=== PATIENT | female | born 1955 | race Caucasian/White ===

== ENCOUNTER 2024-02-02 13:30 | Emergency (ER) | payer OTHER ==
[~2024-02-02] VITALS: Ht 172.7 cm; Wt 136.1 kg
[~2024-02-02 13:30] MED LIST: ACET-2079 PO; CYCL5TAB PO
[2024-02-02 18:04] VITALS: BP 131/66; PULSE 77; RESP 14; O2SAT 96
== END 2024-02-02 18:04 | disposition home or self-care (01) ==
LOC: EDH 13:30
DX: S42.292A Other displaced fracture of upper end of left humerus, initial encounter for closed fracture (principal); M25.562 Pain in left knee; M25.552 Pain in left hip; I10 Essential (primary) hypertension; M19.90 Unspecified osteoarthritis, unspecified site; Z79.899 Other long term (current) drug therapy; Z98.890 Other specified postprocedural states; W18.39XA Other fall on same level, initial encounter; Y93.89 Activity, other specified; Y92.89 Other specified places as the place of occurrence of the external cause; Y99.8 Other external cause status
CPT/HCPCS: 73030; 73502; 73562

== ENCOUNTER 2024-06-29 19:28 | Inpatient (IN) | payer OTHER ==
[~2024-06-29] VITALS: Ht 172.7 cm; Wt 133.8 kg
[2024-06-29 19:51] LABS: BASOPHILS # (AUTO) 0.03 K/uL (0.00-0.20); BASOPHILS % (AUTO) 0.1 % (0.0-5.0); EOSINOPHILS # (AUTO) 0.05 K/uL (0.00-0.70); EOSINOPHILS % (AUTO) 0.2 % (0.0-8.0); HEMATOCRIT 40.1 % (36-48); IMMATURE GRANULOCYTE ABSOLUTE 0.16 K/uL (0-1); LYMPHOCYTES # (AUTO) 1.2 K/uL (1.0-4.8); LYMPHOCYTES % (AUTO) 4.2 % (21.0-51.0); MEAN CORPUSCULAR HEMOGLOBIN 30.6 pg (27.0-33.0); MEAN CORPUSCULAR HGB CONC 32.2 g/dL (32.0-36.0); MONOCYTES # (AUTO) 2.1 K/uL (0.1-1.0); MONOCYTES % (AUTO) 7.5 % (3.0-13.0); NEUTROPHILS # (AUTO) 24.6 K/uL (1.8-7.7); NEUTROPHILS % (AUTO) 87.4 % (40.0-77.0); PLATELET COUNT (AUTO) 274 K/uL (130-400); RED BLOOD CELL COUNT(AUTO) 4.22 MIL/uL (4.00-5.50); RED CELL DISTRIBUTION WIDTH 12.5 % (11.0-15.5); WHITE BLOOD COUNT (AUTO) 28.1 K/uL (4.8-10.8)
[2024-06-29 20:03] LABS: CREATININE 0.9 mg/dL (0.5-1.0); POTASSIUM 3.2 mmol/L (3.5-5.1)
[2024-06-29] MEDS: 0.9%NACL 1000ML 1,000 ML IV ONE (20:03)
[2024-06-29] MEDS: [UNRECOGNIZED DRUG - OTHER] IV ONE (20:03)
[2024-06-29] MEDS: ZOSYN 3.375GM +NS 50ML IVPB SCH (20:07)
[2024-06-29] MEDS: ONDANSETRON 4MG INJ IVP ONE (20:07)
[2024-06-29] MEDS: morPHINE 4 MG SYG IVP ONE (20:08)
[2024-06-29 20:15] LABS: B-TYPE NATRIURETIC PEPTIDE 504 pg/mL (0-100); BILIRUBIN,DIRECT 0.3 mg/dL (0.0-0.3); BILIRUBIN,TOTAL 0.9 mg/dL (0.2-1.0); TOTAL PROTEIN, SERUM 6.6 g/dL (6.0-8.3)
[2024-06-29] MEDS ORDERED: IOHEXOL-350 75 ML VIAL IV ONE (20:33)
[2024-06-29 20:48] LABS: SARS-CoV-2, RNA, NAAT NEGATIVE SARS CoV-2 (NEGATIVE)
[2024-06-29 20:54] LABS: INFLUENZA TYPE A Negative For Type A (NEGATIVE); INFLUENZA TYPE B Negative For Type B (NEGATIVE)
[2024-06-29] MEDS: POTASSIUM CHLORIDE 10MEQ/100ML 100 ML IV ONE (22:03)
[2024-06-29 22:24] VITALS: BP 145/69; PULSE 86; RESP 18; TEMP 98; O2SAT 98
[2024-06-29] MEDS: morPHINE 4 MG SYG IV PRN (22:45)
[2024-06-29] MEDS: POTASSIUM CHLORIDE 20MEQ/100ML 100 ML IV PRN (23:37)
[2024-06-30] VITALS (7 sets, daily range): BP systolic 107–114; BP diastolic 47–73; PULSE 70–100; RESP 17–28; TEMP 98.2–98.6; O2SAT 90–96
[2024-06-30] MEDS: metoPROLOL tartRATE 1 MG/ML 5ML VIAL IV ONE ×4 (00:11→09:40)
[2024-06-30] MEDS: 0.9%NACL 1000ML 1,000 ML IV SCH (00:11)
[2024-06-30 03:24] LABS: BASOPHILS # (AUTO) 0.05 K/uL (0.00-0.20); BASOPHILS % (AUTO) 0.2 % (0.0-5.0); EOSINOPHILS # (AUTO) 0.08 K/uL (0.00-0.70); EOSINOPHILS % (AUTO) 0.3 % (0.0-8.0); HEMATOCRIT 37.1 % (36-48); IMMATURE GRANULOCYTE ABSOLUTE 0.36 K/uL (0-1); LYMPHOCYTES % (AUTO) 3.6 % (21.0-51.0); MEAN CORPUSCULAR HGB CONC 32.3 g/dL (32.0-36.0); MEAN CORPUSCULAR VOLUME 95.9 fL (79-99); MONOCYTES # (AUTO) 2.2 K/uL (0.1-1.0); MONOCYTES % (AUTO) 7.7 % (3.0-13.0); NEUTROPHILS # (AUTO) 24.5 K/uL (1.8-7.7); NEUTROPHILS % (AUTO) 86.9 % (40.0-77.0); PLATELET COUNT (AUTO) 234 K/uL (130-400); RED BLOOD CELL COUNT(AUTO) 3.87 MIL/uL (4.00-5.50); RED CELL DISTRIBUTION WIDTH 12.6 % (11.0-15.5); WHITE BLOOD COUNT (AUTO) 28.1 K/uL (4.8-10.8)
[2024-06-30 03:53] LABS: ALBUMIN 2.5 g/dL (3.5-5.0); CREATININE 0.9 mg/dL (0.5-1.0); MAGNESIUM 1.6 mg/dL (1.80-2.40); POTASSIUM 3.5 mmol/L (3.5-5.1); THYROID STIMULATING HORMONE 0.29 uIU/mL (0.36-3.74); TOTAL PROTEIN, SERUM 5.8 g/dL (6.0-8.3)
[2024-06-30] MEDS: MAGNESIUM 2GM PREMIX 50ML 50 ML IV PRN (04:10)
[2024-06-30] MEDS: ZOSYN 3.375GM+NS 50ML 50 ML IV SCH (05:10)
[2024-06-30 06:53] LABS: APPEARANCE,URINE CLEAR (CLEAR); BILIRUBIN,URINE NEGATIVE (NEGATIVE); COLOR,URINE YELLOW (YELLOW); GLUCOSE, URINE (UA) NEGATIVE (NEGATIVE); KETONES,URINE 5 mg/dL (NEGATIVE); LEUKOCYTE ESTERASE ,URINE NEGATIVE Leu/uL (NEGATIVE); NITRATE,URINE NEGATIVE (NEGATIVE); OCCULT BLOOD,URINE SMALL (NEGATIVE); PROTEIN,URINE 70 mg/dL (NEGATIVE); UROBILINOGEN,URINE 0.2 mg/dL (0.2-1.0)
[2024-06-30 06:55] LABS: ADD UA MICROSCOPIC YES
[2024-06-30 07:00] LABS: BACTERIA,URINE RARE /HPF (None Seen); MUCUS,URINE RARE LPF (None Seen); SQUAMOUS EPITHELIAL CELL,UR MOD /HPF (0-2); WBC,URINE 0-1 /HPF (0-1)
[2024-06-30] MEDS ORDERED: GABA-529 PO (07:06)
[2024-06-30] MEDS ORDERED: METH100054 PO (07:06)
[2024-06-30] MEDS ORDERED: LATA2.5D14 OP (07:06)
[2024-06-30] MEDS ORDERED: MELO10CA3 PO (07:06)
[2024-06-30] MEDS ORDERED: LISI1TAB49 PO (07:06)
[2024-06-30] MEDS ORDERED: TRAM50TA4 PO (07:06)
[2024-06-30] MEDS ORDERED: POTA10CA95 PO (07:06)
[2024-06-30] MEDS: FAMOTIDINE 20MG VIAL IV SCH (08:40)
[2024-06-30] MEDS ORDERED: ENOXAPARIN SODIUM 40 MG/0.4 ML SYRINGE SQ SCH (11:00)
[2024-06-30] MEDS: ENOXAPARIN SODIUM 100 MG/1 ML SQ SCH (12:21)
[2024-06-30] MEDS: ENOXAPARIN SODIUM 30 MG/0.3 ML SQ SCH (12:22)
[2024-06-30] MEDS: metoPROLOL tartRATE 1 MG/ML 5ML VIAL IV SCH (12:45)
[2024-06-30] MEDS: METHOCARBAMOL 500 MG PO SCH (14:39)
[2024-06-30] MEDS: GABApentin 100 MG CAPSULE PO SCH (14:40)
[2024-06-30] MEDS: ONDANSETRON 4MG INJ IV PRN (19:59)
[2024-06-30] MEDS: LISINOPRIL 10 MG TABLET PO SCH (21:00)
[2024-06-30] MEDS: hydroCHLOROthiazide 25 MG TABLET PO SCH (21:00)
[2024-06-30] MEDS: ketOROlac 15MG/ML VIAL (15MG/ML) IV ONE (23:05)
[2024-07-01] VITALS (9 sets, daily range): BP systolic 110–194; BP diastolic 48–74; PULSE 70–98; RESP 18–24; TEMP 98–98.9; O2SAT 90–95
[2024-07-01] MEDS: MELOXICAM SUBMICRONIZED PO SCH (09:00)
[2024-07-01] MEDS: ENOXAPARIN SODIUM 40 MG/0.4 ML SYRINGE SQ SCH (09:38)
[2024-07-01] MEDS: morPHINE 2 MG SYG IV PRN (10:15)
[2024-07-01] MEDS: LACTULOSE 20 GM/30 ML UDCUP PO PRN (10:34)
[2024-07-01 10:41] LABS: BASOPHILS # (AUTO) 0.04 K/uL (0.00-0.20); BASOPHILS % (AUTO) 0.2 % (0.0-5.0); EOSINOPHILS # (AUTO) 0.07 K/uL (0.00-0.70); EOSINOPHILS % (AUTO) 0.3 % (0.0-8.0); HEMATOCRIT 35.4 % (36-48); IMMATURE GRANULOCYTE ABSOLUTE 0.14 K/uL (0-1); LYMPHOCYTES % (AUTO) 4.3 % (21.0-51.0); MEAN CORPUSCULAR HEMOGLOBIN 30.7 pg (27.0-33.0); MEAN CORPUSCULAR HGB CONC 31.4 g/dL (32.0-36.0); MEAN CORPUSCULAR VOLUME 97.8 fL (79-99); MONOCYTES # (AUTO) 1.4 K/uL (0.1-1.0); MONOCYTES % (AUTO) 6.3 % (3.0-13.0); NEUTROPHILS # (AUTO) 19.6 K/uL (1.8-7.7); NEUTROPHILS % (AUTO) 88.3 % (40.0-77.0); PLATELET COUNT (AUTO) 191 K/uL (130-400); RED BLOOD CELL COUNT(AUTO) 3.62 MIL/uL (4.00-5.50); RED CELL DISTRIBUTION WIDTH 12.7 % (11.0-15.5); WHITE BLOOD COUNT (AUTO) 22.2 K/uL (4.8-10.8)
[2024-07-01 10:48] LABS: MAGNESIUM 2.2 mg/dL (1.80-2.40)
[2024-07-01] MEDS: acetaMINOPHEN WITH coDEINE 1 TAB TAB PO PRN (12:25)
[2024-07-01] MEDS: metoPROLOL tartRATE 25 MG TAB PO ONE (15:04)
[2024-07-01] MEDS ORDERED: VANCOMYCIN PROTOCOL PER PHARMACY IV SCH (16:00)
[2024-07-01] MEDS: VANCOMYCIN 2GM/500 ML BAG 500 ML IV SCH (17:28)
[2024-07-01] MEDS: LACTULOSE 20 GM/30 ML UDCUP PO SCH (17:28)
[2024-07-01] MEDS: metoPROLOL tartRATE 25 MG TAB PO SCH (20:48)
[2024-07-02] VITALS (11 sets, daily range): BP systolic 100–136; BP diastolic 49–72; PULSE 80–91; RESP 17–20; TEMP 97.2–99.1; O2SAT 96–99
[2024-07-02] MEDS: VANCOMYCIN 1.25 GM/250 ML BAG 250 ML IV SCH (04:56)
[2024-07-02] MEDS: dilTIAZem 180MG SR CAP PO SCH (08:16)
[2024-07-02] MEDS: furoSEMIDE 20MG VIAL IV ONE (08:26)
[2024-07-02 09:15] LABS: BASOPHILS # (AUTO) 0.05 K/uL (0.00-0.20); BASOPHILS % (AUTO) 0.2 % (0.0-5.0); EOSINOPHILS # (AUTO) 0.18 K/uL (0.00-0.70); EOSINOPHILS % (AUTO) 0.8 % (0.0-8.0); IMMATURE GRANULOCYTE ABSOLUTE 0.17 K/uL (0-1); LYMPHOCYTES # (AUTO) 1.1 K/uL (1.0-4.8); LYMPHOCYTES % (AUTO) 4.9 % (21.0-51.0); MEAN CORPUSCULAR HEMOGLOBIN 30.3 pg (27.0-33.0); MEAN CORPUSCULAR HGB CONC 30.8 g/dL (32.0-36.0); MEAN CORPUSCULAR VOLUME 98.4 fL (79-99); MONOCYTES # (AUTO) 1.9 K/uL (0.1-1.0); MONOCYTES % (AUTO) 8.4 % (3.0-13.0); NEUTROPHILS # (AUTO) 18.7 K/uL (1.8-7.7); NEUTROPHILS % (AUTO) 84.9 % (40.0-77.0); PLATELET COUNT (AUTO) 244 K/uL (130-400); RED BLOOD CELL COUNT(AUTO) 3.76 MIL/uL (4.00-5.50); RED CELL DISTRIBUTION WIDTH 12.5 % (11.0-15.5)
[2024-07-02 09:32] LABS: ALBUMIN 2.2 g/dL (3.5-5.0); BILIRUBIN,TOTAL 0.8 mg/dL (0.2-1.0); CREATININE 0.8 mg/dL (0.5-1.0); MAGNESIUM 2.1 mg/dL (1.80-2.40); TOTAL PROTEIN, SERUM 6.3 g/dL (6.0-8.3)
[2024-07-02 09:34] LABS: POTASSIUM 2.6 mmol/L (3.5-5.1)
[2024-07-02] MEDS: POTASSIUM CHLORIDE 10% ELIXIR 20 MEQ/15 ML UDCUP PO PRN (10:19)
[2024-07-02] MEDS: IpraTROPium/alBUTERol SULFATE 3 ML SOLUTION IH ONE (10:43)
[2024-07-02] MEDS: KCL 20 MEQ ERTAB PO PRN (17:33)
[2024-07-02] MEDS ORDERED: LORATAdine/pseudophEPHEDrine 5/120 MG 1 EACH TAB.SR.12H PO SCH (21:00)
[2024-07-03] VITALS (13 sets, daily range): BP systolic 92–124; BP diastolic 52–58; PULSE 61–98; RESP 18–24; TEMP 98.2–99.5; O2SAT 95–98
[2024-07-03] MEDS: dilTIAZem 120MG SR CAP PO SCH (09:00)
[2024-07-03] MEDS ORDERED: morPHINE 2 MG SYG IV PRN ×2 (11:48→14:00)
[2024-07-03 11:59] LABS: ABG OXYGEN SATURATION 91.8 % (94.0-98.0); ABG PCO2 46 mmHg (32-45); ABG PH 7.437 (7.350-7.450); DEVICE COMMENT LR LIZ; PO2, ARTERIAL BG 60.5 mmHg (83.0-108.0); VENT MODE, BG RA (ROOM AIR)
[2024-07-03 12:04] LABS: BASOPHILS # (AUTO) 0.06 K/uL (0.00-0.20); BASOPHILS % (AUTO) 0.3 % (0.0-5.0); EOSINOPHILS # (AUTO) 0.26 K/uL (0.00-0.70); EOSINOPHILS % (AUTO) 1.2 % (0.0-8.0); HEMATOCRIT 34.5 % (36-48); LYMPHOCYTES # (AUTO) 1.2 K/uL (1.0-4.8); LYMPHOCYTES % (AUTO) 5.6 % (21.0-51.0); MEAN CORPUSCULAR HEMOGLOBIN 30.7 pg (27.0-33.0); MEAN CORPUSCULAR HGB CONC 32.2 g/dL (32.0-36.0); MEAN CORPUSCULAR VOLUME 95.6 fL (79-99); MONOCYTES # (AUTO) 2.3 K/uL (0.1-1.0); MONOCYTES % (AUTO) 10.8 % (3.0-13.0); NEUTROPHILS # (AUTO) 17.3 K/uL (1.8-7.7); NEUTROPHILS % (AUTO) 80.7 % (40.0-77.0); PLATELET COUNT (AUTO) 259 K/uL (130-400); RED BLOOD CELL COUNT(AUTO) 3.61 MIL/uL (4.00-5.50); RED CELL DISTRIBUTION WIDTH 12.6 % (11.0-15.5); WHITE BLOOD COUNT (AUTO) 21.5 K/uL (4.8-10.8)
[2024-07-03] MEDS: ketOROlac 15MG/ML VIAL (15MG/ML) IV PRN (12:11)
[2024-07-03 12:18] LABS: ALBUMIN 1.8 g/dL (3.5-5.0); BILIRUBIN,TOTAL 0.8 mg/dL (0.2-1.0); CREATININE 0.6 mg/dL (0.5-1.0); MAGNESIUM 1.6 mg/dL (1.80-2.40); TOTAL PROTEIN, SERUM 5.7 g/dL (6.0-8.3)
[2024-07-03 12:34] LABS: POTASSIUM 2.7 mmol/L (3.5-5.1)
[2024-07-03] MEDS ORDERED: POTASSIUM CHLORIDE 20MEQ/100ML 100 ML IV PRN (13:00)
[2024-07-03] MEDS ORDERED: MAGNESIUM 2GM PREMIX 50ML 50 ML IV PRN (13:00)
[2024-07-03] MEDS ORDERED: MAGNESIUM 2GM PREMIX 50ML 50 ML IV SCH (13:00)
[2024-07-03] MEDS ORDERED: COMPOUND IV MISC 1 EACH IVSOLN MISC PRN (14:00)
[2024-07-03] MEDS ORDERED: LACTATED RINGERS 1000ML 1,000 ML IV SCH (14:00)
[2024-07-03 14:03] LABS: AMYLASE 21 U/L (25-115); LACTATE DEHYDROGENASE 216 U/L (81-234)
[2024-07-03] MEDS: POTASSIUM CHLORIDE 20MEQ/100ML 100 ML IV ONE (14:16)
[2024-07-03] MEDS: IpraTROPium/alBUTERol SULFATE 3 ML SOLUTION IH PRN (14:20)
[2024-07-03 14:53] LABS: INR 1.05 (0.85-1.15); PROTHROMBIN TIME 11.3 SEC (9.6-11.6)
[2024-07-03] MEDS: MEROPENEM 1 GM in 0.9%NACL 100ML 100 ML IVPB SCH (15:18)
[2024-07-03] MEDS: LIDOCAINE HCL-MPF 1% 2ML VIAL IV SCH (15:28)
[2024-07-03] MEDS: furoSEMIDE 20MG VIAL IV SCH (16:53)
[2024-07-03] MEDS: IpraTROPium 0.5 MG/2.5 ML INH IH SCH (18:47)
[2024-07-03 18:53] LABS: POTASSIUM 3.1 mmol/L (3.5-5.1)
[2024-07-03] MEDS: SIMETHICONE 80 MG TAB.CHEW PO SCH (21:18)
[2024-07-03] MEDS: 0.9%NACL 10ML VIAL IV SCH (21:18)
[2024-07-03] MEDS: traMADol HCL 50 MG TABLET PO ONE (22:52)
[2024-07-04] VITALS (15 sets, daily range): BP systolic 109–132; BP diastolic 51–83; PULSE 72–91; RESP 16–21; TEMP 97.8–98.7; O2SAT 94–97
[2024-07-04 05:15] LABS: HEMATOCRIT 32.7 % (36-48); MEAN CORPUSCULAR HEMOGLOBIN 29.8 pg (27.0-33.0); MEAN CORPUSCULAR HGB CONC 31.8 g/dL (32.0-36.0); MEAN CORPUSCULAR VOLUME 93.7 fL (79-99); RED BLOOD CELL COUNT(AUTO) 3.49 MIL/uL (4.00-5.50); RED CELL DISTRIBUTION WIDTH 12.8 % (11.0-15.5); WHITE BLOOD COUNT (AUTO) 17.1 K/uL (4.8-10.8)
[2024-07-04 05:29] LABS: CREATININE 0.6 mg/dL (0.5-1.0); MAGNESIUM 1.8 mg/dL (1.80-2.40); POTASSIUM 3.1 mmol/L (3.5-5.1)
[2024-07-04] MEDS: ENOXAPARIN SODIUM 40 MG/0.4 ML SYRINGE SQ SCH (08:34)
[2024-07-04] MEDS ORDERED: APIXaban 5 MG TABLET PO SCH (09:00)
[2024-07-04] MEDS: LACTULOSE 20 GM/30 ML UDCUP PO ONE (14:55)
[2024-07-04] MEDS: KCL 20 MEQ ERTAB PO ONE (14:55)
[2024-07-04] MEDS: POTASSIUM CHLORIDE 20MEQ/100ML 100 ML IV ONE (14:59)
[2024-07-04] MEDS: PREDNISONE 20 MG TABLET PO SCH (15:04)
[2024-07-05] VITALS (14 sets, daily range): BP systolic 109–128; BP diastolic 57–79; PULSE 78–89; RESP 18–24; TEMP 97.7–98.8; O2SAT 95–98
[2024-07-05 06:15] LABS: HEMATOCRIT 32.5 % (36-48); MEAN CORPUSCULAR HEMOGLOBIN 30.1 pg (27.0-33.0); MEAN CORPUSCULAR HGB CONC 32.6 g/dL (32.0-36.0); MEAN CORPUSCULAR VOLUME 92.3 fL (79-99); RED BLOOD CELL COUNT(AUTO) 3.52 MIL/uL (4.00-5.50); RED CELL DISTRIBUTION WIDTH 12.7 % (11.0-15.5); WHITE BLOOD COUNT (AUTO) 15.6 K/uL (4.8-10.8)
[2024-07-05 06:30] LABS: ALBUMIN 1.7 g/dL (3.5-5.0); BILIRUBIN,TOTAL 0.4 mg/dL (0.2-1.0); CREATININE 0.6 mg/dL (0.5-1.0); MAGNESIUM 1.9 mg/dL (1.80-2.40); TOTAL PROTEIN, SERUM 5.4 g/dL (6.0-8.3)
[2024-07-05 06:36] LABS: POTASSIUM 2.8 mmol/L (3.5-5.1)
[2024-07-05] MEDS ORDERED: MAG/ALUM/SIMETH 30 ML UDCUP PO PRN (08:00)
[2024-07-05] MEDS: SUCRALFATE 1 GM TABLET ONE (08:47)
[2024-07-05] MEDS: PANTOPRAZOLE 40 MG/VIAL IVP SCH (08:47)
[2024-07-05] MEDS: PREDNISONE 20 MG TABLET PO SCH (08:50)
[2024-07-05] MEDS: monteLUKAST sodIUM 10 MG TAB PO SCH (08:51)
[2024-07-05] MEDS: KCL 20 MEQ ERTAB PO ONE (08:51)
[2024-07-05] MEDS: furoSEMIDE 20 MG TABLET PO SCH (08:51)
[2024-07-05] MEDS: BUDESONIDE 0.5 MG/2 ML INH IH SCH (11:21)
[2024-07-05] MEDS: SUCRALFATE 1 GM TABLET PO SCH (13:26)
[2024-07-05 13:52] LABS: HEMOGLOBIN A1C 5.3 % (4.0-6.0)
[2024-07-05] MEDS ORDERED: BUDESONIDE 0.5 MG/2 ML INH IH SCH (18:00)
[2024-07-05] MEDS: guaiFENesin-coDEINE 5 ML SYRUP PO PRN (23:32)
[2024-07-06] VITALS (14 sets, daily range): BP systolic 115–132; BP diastolic 49–63; PULSE 52–82; RESP 18–20; TEMP 97.3–98.4; O2SAT 95–98
[2024-07-06 04:32] LABS: HEMATOCRIT 31.5 % (36-48); MEAN CORPUSCULAR HGB CONC 32.7 g/dL (32.0-36.0); MEAN CORPUSCULAR VOLUME 91.8 fL (79-99); RED BLOOD CELL COUNT(AUTO) 3.43 MIL/uL (4.00-5.50); RED CELL DISTRIBUTION WIDTH 12.7 % (11.0-15.5); WHITE BLOOD COUNT (AUTO) 12.2 K/uL (4.8-10.8)
[2024-07-06 04:42] LABS: ALBUMIN 1.7 g/dL (3.5-5.0); BILIRUBIN,TOTAL 0.3 mg/dL (0.2-1.0); CREATININE 0.5 mg/dL (0.5-1.0); MAGNESIUM 1.7 mg/dL (1.80-2.40); POTASSIUM 3.2 mmol/L (3.5-5.1); TOTAL PROTEIN, SERUM 5.3 g/dL (6.0-8.3)
[2024-07-06] MEDS: MULTIVITAMIN TABLET PO SCH (08:52)
[2024-07-06] MEDS: LORATAdine 10 mg 10 MG TABLET PO PRN (08:54)
[2024-07-06] MEDS: furoSEMIDE 20MG VIAL IV ONE (08:55)
[2024-07-06 09:09] LABS: DEVICE COMMENT VEN ASHLEY; HCO3,VENOUS BLOOD GAS 33.5 (22.0-29.0); PCO2,VENOUS BLOOD GAS 45 (38-54); PH,VENOUS BLOOD GAS 7.492 (7.320-7.430); VENT MODE, BG 3LNC (ROOM AIR)
[2024-07-06] MEDS: KCL 20 MEQ ERTAB PO ONE (12:00)
[2024-07-06 14:50] LABS: POTASSIUM 3.2 mmol/L (3.5-5.1)
[2024-07-06 14:58] LABS: MAGNESIUM 8.7 mg/dL (1.80-2.40)
[2024-07-07] VITALS (14 sets, daily range): BP systolic 109–134; BP diastolic 41–80; PULSE 65–84; RESP 18–21; TEMP 98–99.1; O2SAT 96–98
[2024-07-07 05:19] LABS: HEMATOCRIT 34.8 % (36-48); MEAN CORPUSCULAR HEMOGLOBIN 29.9 pg (27.0-33.0); MEAN CORPUSCULAR HGB CONC 32.2 g/dL (32.0-36.0); RED BLOOD CELL COUNT(AUTO) 3.74 MIL/uL (4.00-5.50); RED CELL DISTRIBUTION WIDTH 12.7 % (11.0-15.5); WHITE BLOOD COUNT (AUTO) 10.9 K/uL (4.8-10.8)
[2024-07-07 05:37] LABS: ALBUMIN 1.9 g/dL (3.5-5.0); BILIRUBIN,TOTAL 0.3 mg/dL (0.2-1.0); CREATININE 0.6 mg/dL (0.5-1.0); MAGNESIUM 1.8 mg/dL (1.80-2.40); POTASSIUM 3.8 mmol/L (3.5-5.1); TOTAL PROTEIN, SERUM 5.4 g/dL (6.0-8.3)
[2024-07-07] MEDS: SODIUM CHLORIDE 3% FOR INHALATION 4 ML/AMP VIAL.NEB IH ONE ×3 (06:44→18:52)
[2024-07-07] MEDS: MAGNESIUM 2GM PREMIX 50ML 50 ML IV SCH (08:27)
[2024-07-08] VITALS (14 sets, daily range): BP systolic 107–126; BP diastolic 49–93; PULSE 62–83; RESP 16–21; TEMP 97.4–98.9; O2SAT 93–97
[2024-07-08 04:27] LABS: BASOPHILS # (AUTO) 0.03 K/uL (0.00-0.20); BASOPHILS % (AUTO) 0.2 % (0.0-5.0); HEMATOCRIT 33.2 % (36-48); IMMATURE GRANULOCYTE ABSOLUTE 0.42 K/uL (0-1); LYMPHOCYTES # (AUTO) 1.3 K/uL (1.0-4.8); LYMPHOCYTES % (AUTO) 10.6 % (21.0-51.0); MEAN CORPUSCULAR HEMOGLOBIN 30.3 pg (27.0-33.0); MEAN CORPUSCULAR HGB CONC 32.5 g/dL (32.0-36.0); MONOCYTES # (AUTO) 0.9 K/uL (0.1-1.0); MONOCYTES % (AUTO) 6.8 % (3.0-13.0); NEUTROPHILS # (AUTO) 9.9 K/uL (1.8-7.7); PLATELET COUNT (AUTO) 407 K/uL (130-400); RED BLOOD CELL COUNT(AUTO) 3.57 MIL/uL (4.00-5.50); RED CELL DISTRIBUTION WIDTH 12.8 % (11.0-15.5); WHITE BLOOD COUNT (AUTO) 12.5 K/uL (4.8-10.8)
[2024-07-08 04:44] LABS: BILIRUBIN,TOTAL 0.3 mg/dL (0.2-1.0); CREATININE 0.6 mg/dL (0.5-1.0); MAGNESIUM 1.9 mg/dL (1.80-2.40); POTASSIUM 3.4 mmol/L (3.5-5.1); TOTAL PROTEIN, SERUM 5.4 g/dL (6.0-8.3)
[2024-07-08] MEDS: furoSEMIDE 20 MG TABLET PO SCH (08:00)
[2024-07-09] VITALS (9 sets, daily range): BP systolic 108–120; BP diastolic 52–66; PULSE 70–83; RESP 18–22; TEMP 97.6–98.1; O2SAT 93–97
[2024-07-09] MEDS: trAZOdone HCL 50 MG TAB PO PRN (01:52)
== END 2024-07-09 14:34 | DRG 871 ==
LOC: EDH 19:28 → EDHIP 21:33 → 4DH 22:25 → 2AH 07-03 12:28
PROVIDERS: ADMIT Internal Medicine; ATTEND Internal Medicine
PROC: 02HV33Z Insertion of Infusion Device into Superior Vena Cava, Percutaneous Approach (ICD-10-PCS; principal; 2024-07-03)
PROC: 5A09357 Assistance with Respiratory Ventilation, Less than 24 Consecutive Hours, Continuous Positive Airway Pressure (ICD-10-PCS; 2024-07-03)
DX: A41.1 Sepsis due to other specified staphylococcus (principal); I50.33 Acute on chronic diastolic (congestive) heart failure; J96.01 Acute respiratory failure with hypoxia; K85.90 Acute pancreatitis without necrosis or infection, unspecified; J96.02 Acute respiratory failure with hypercapnia; I47.19 Other supraventricular tachycardia; Z68.41 Body mass index [BMI] 40.0-44.9, adult; Z20.822 Contact with and (suspected) exposure to COVID-19; R65.20 Severe sepsis without septic shock; E87.6 Hypokalemia; I49.3 Ventricular premature depolarization; B96.89 Other specified bacterial agents as the cause of diseases classified elsewhere; K59.00 Constipation, unspecified; I48.0 Paroxysmal atrial fibrillation; E66.01 Morbid (severe) obesity due to excess calories; R73.9 Hyperglycemia, unspecified; E83.42 Hypomagnesemia; J98.01 Acute bronchospasm; I49.1 Atrial premature depolarization; G47.00 Insomnia, unspecified; I11.0 Hypertensive heart disease with heart failure; E86.0 Dehydration; Z98.84 Bariatric surgery status; Z90.49 Acquired absence of other specified parts of digestive tract
CPT/HCPCS: 36415; 36556; 36600; 71045; 71250; 74176; 74177; 80048; 80053; 80061; 80076; 81001; 82150; 82306; 82607; 82803; 82948; 83036; 83605; 83615; 83690; 83735; 83880; 84132; 84145; 84207; 84443; 84484; 85025; 85027; 85610; 85730; 87040; 87086; 87186; 87635; 87804; 93005; 93306; 94640; 94660; 99291; C1894; G0378; J1650; J1885; J1940; J2185; J2270; J2405; J2470; J2543; J3475; J3480; J3490; Q9967; 3370; A4600; J3370

== ENCOUNTER → 2024-08-16 | Outpatient (CLI) | payer OTHER ==
[~2024-08-16] MED LIST changes: -ACET-2079 PO; -CYCL5TAB PO; +GABA-529 PO; +LATA2.5D14 OP; +LISI1TAB49 PO; +MELO10CA3 PO; +METH100054 PO; +POTA10CA95 PO; +TRAM50TA4 PO
== END | disposition home or self-care (01) ==
LOC: LAB 09:57
PROVIDERS: ATTEND Internal Medicine Cardiovascular Disease
DX: I47.10 Supraventricular tachycardia, unspecified (principal)
CPT/HCPCS: 36415; 85378

== ENCOUNTER → 2024-08-19 | Outpatient (CLI) | payer OTHER ==
[~2024-08-19] MED LIST changes: +APIX5TAB PO; +DILT120T PO; +FURO20TA4 PO; +LISI1TAB53 PO; +MELO-108 PO; +MONT-39 PO
[2024-08-19 12:19] LABS: CREATININE 0.7 mg/dL (0.5-1.0)
== END | disposition home or self-care (01) ==
LOC: LAB 10:12
PROVIDERS: ATTEND Internal Medicine Cardiovascular Disease
DX: I48.0 Paroxysmal atrial fibrillation (principal)
CPT/HCPCS: 36415; 80048

== ENCOUNTER → 2024-08-20 | Outpatient (CLI) | payer OTHER ==
[~2024-08-20] MED LIST changes: +IOHEXOL 350 MG/ML 100ML INFUS..BTL IV ONE; +LISI20TA24 PO; +SPIR25TA6 PO
== END | disposition home or self-care (01) ==
LOC: RAH 10:00
PROVIDERS: ATTEND Internal Medicine Cardiovascular Disease
DX: I26.99 Other pulmonary embolism without acute cor pulmonale (principal); J90 Pleural effusion, not elsewhere classified; J98.11 Atelectasis; R79.1 Abnormal coagulation profile
CPT/HCPCS: 71270; Q9967

== ENCOUNTER 2025-07-03 16:13 | Inpatient (IN) | payer OTHER ==
[~2025-07-03] VITALS: Ht 172.7 cm; Wt 130.7 kg
[~2025-07-03 16:13] MED LIST changes: -FURO20TA4 PO; -GABA-529 PO; -IOHEXOL 350 MG/ML 100ML INFUS..BTL IV ONE; -LATA2.5D14 OP; +LATA2.5D7 OP; -LISI1TAB49 PO; -LISI1TAB53 PO; -MELO10CA3 PO; -METH100054 PO; -POTA10CA95 PO; -TRAM50TA4 PO
--- NOTE | 2025-07-03 16:42 | EKG ---
[facility] Test Date: 2025-07-03 Test Time: 16:36:27 Pat Name: CARRIE MCKINNON Department: [facility] Room: 412 Gender: F Chart Computer: [id number] Requested By: AJITH PARIKH Order Number: [id number] Reading MD: Pooja Rushing Measurements Intervals [place] Rate: 103 P: 0 CT: 0 QRS: 58 QRSD: 109 T: 12 QT: 353 QTc: 464 Interpretive Statements Atrial fibrillation Low voltage, precordial leads Nonspecific T abnormalities, anterior leads Compared to ECG 08/20/2024 10:53:09 Low QRS voltage now present T-wave abnormality now present Electronically Signed On 07-07-2025 14:53:08 CDT by Pooja Rushing Please click the below link to view image of tracing.
[2025-07-03 16:58] LABS: IMMATURE GRANULOCYTE ABSOLUTE 0.16 K/uL (0-1); NUCLEATED RED BLOOD CELLS 0.0 % (0.0-0.19); PLATELET COUNT (AUTO) 309 K/uL (130-400); RED BLOOD CELL COUNT(AUTO) 3.65 MIL/uL (4.00-5.50); RED CELL DISTRIBUTION WIDTH 13.4 % (11.0-15.5); WHITE BLOOD COUNT (AUTO) 8.4 K/uL (4.8-10.8)
[2025-07-03 17:00] LABS: INR 1.04 (0.85-1.15)
[2025-07-03 17:01] LABS: CREATININE 1.0 mg/dL (0.5-1.0); GLOMERULAR FILTR. RATE CALC 61.0 mL/min (>90); GLUCOSE,RANDOM 128.0 mg/dL (70-105); SODIUM SERUM 142.0 mmol/L (136-145); UREA NITROGEN, BLOOD 23.0 mg/dL (7-18)
[2025-07-03 17:10] LABS: ASPARTATE AMINOTRANSFERASE 15.0 U/L (10-37); TOTAL PROTEIN, SERUM 6.5 g/dL (6.0-8.3)
--- NOTE | 2025-07-03 18:00 | ERN ---
ED Note History of Present Illness Stated Complaint: SOB Chief Complaint: Shortness of Breath Time Seen by MD: 16:19 Dictation: 69-year-old female presenting to the emergency department with shortness of breath history of atrial fibrillation and blood clots on Eliquis presenting with worsening shortness of breath worsening this morning. Allergies: Coded Allergies: No Known Drug Allergies (Verified Allergy, 11/28/13) Home Meds Active Scripts Lisinopril (Lisinopril) 20 Mg Tablet, 1 TAB PO DAILY for 30 Days, #30 TAB 0 Refills Prov:TEDDY MARCUS MD 08/22/24 Spironolactone (Spironolactone) 25 Mg Tablet, 25 MG PO DAILY, #30 TAB 3 Refills Prov:RICHELLE WILSON MD 08/22/24 Apixaban (Eliquis) 5 Mg Tablet, 5 MG PO BID, #180 TAB 3 Refills Start 08/28 after completing the 10 mg bid doses Prov:RICHELLE WILSON MD 08/22/24 Apixaban (Eliquis) 5 Mg Tablet, 10 MG PO BID, #10 TAB 0 Refills Prov:RCIHELLE WILSON MD 08/22/24 Reported Medications Montelukast Sodium (Montelukast Sodium) 10 Mg Tablet, 10 MG PO HS, TAB 08/20/24 Meloxicam (Meloxicam) 15 Mg Tablet, 15 MG PO HS, TAB 08/20/24 Diltiazem HCl (Diltiazem HCl) 120 Mg Tablet, 120 MG PO DAILY, TAB 08/20/24 Latanoprost (Latanoprost) 0.005 % Drops, 2.5 ML OP HS, DROP 06/30/24 Past Medical History Past Medical History: A-Fib, Heart Disease, Hypertension Surgical History: None Surgical History Other: ABDOMEN SURG 20 YRS AGO Social History: Lives with family History: Not Applicable Review of System Dictation Constitutional: Negative for fever,chills, and weight loss Eyes: Negative for injury, pain,redness, and discharge ENT: Negative for injury,pain or swelling Cardiovascular: Per HPI Respiratory: Per HPI Abdomen/GI: Negative for abdominal pain, nausea, vomiting, diarrhea, and constipation Back: Negative for injury and pain : Negative for injury, bleeding and discharge MS/Extremity: Negative for injury and deformity Skin: Negative for rash, and discoloration Neuro: Negative for headache, weakness, numbness, tingling, and seizure Psych: Negative for suicide ideation, homicidal ideation, and hallucinations Initial Vital Sign VS Vital Signs Date Time Temp Pulse Resp B/P (MAP) Pulse Ox O2 Delivery O2 Flow Rate FiO2 07/03/25 16:16 98.2 114 22 114/69 96 Room Air 0 07/03/25 16:18 21 Physical Exam Dictation General: awake, alert, NAD Head/Face: Normocephalic, atraumatic Eyes: PERRL, EOMI, vision at baseline ENT: oral cavity clear, TMs clear, no signs of infection Neck: Trachea midline, supple, no nuchal rigidity Cardiovascular: RRR, normal S1/S2, No MRGs, no JVD, mild bilateral lower extremity edema Respiratory: CTAB, n tachypnea, No rales or wheezes Abdomen: Soft, non-tender, non-distended, normal bowel sounds, no guarding or rebound. Skin: Warm, dry, normal turgor, no rash MS/Extremity: Pulses equal, no cyanosis, neurovascular intact, FROM Neuro: COAx4, GCS 15, strength 5/5, CN 2-12 intact, normal cerebellar exam, normal gait, Psych: Normal behavior, mood, and affect normal Results (Laboratory/Radiology) Laboratory/Radiology Laboratory Tests Test 07/03/25 16:36 White Blood Count 8.4 K/uL (4.8-10.8) Red Blood Count 3.65 MIL/uL (4.00-5.50) L Hemoglobin 11.6 g/dL (12.0-16.0) L Hematocrit 36.5 % (36-48) Mean Corpuscular Volume 100.0 fL (79-99) H Mean Corpuscular Hemoglobin 31.8 pg (27.0-33.0) Mean Corpuscular Hemoglobin Concent 31.8 g/dL (32.0-36.0) L Red Cell Distribution Width 13.4 % (11.0-15.5) Platelet Count 309 K/uL (130-400) Mean Platelet Volume 8.7 fL (7.5-10.5) Immature Granulocyte % (Auto) 1.9 % (0-1) H Neutrophils (%) (Auto) 56.1 % (40.0-77.0) Lymphocytes (%) (Auto) 29.1 % (21.0-51.0) Monocytes (%) (Auto) 10.2 % (3.0-13.0) Eosinophils (%) (Auto) 2.3 % (0.0-8.0) Basophils (%) (Auto) 0.4 % (0.0-5.0) Neutrophils # (Auto) 4.7 K/uL (1.8-7.7) Lymphocytes # (Auto) 2.5 K/uL (1.0-4.8) Monocytes # (Auto) 0.9 K/uL (0.1-1.0) Eosinophils # (Auto) 0.19 K/uL (0.00-0.70) Basophils # (Auto) 0.03 K/uL (0.00-0.20) Absolute Immature Granulocyte (auto 0.16 K/uL (0-1) Nucleated Red Blood Cells 0.0 % (0.0-0.19) Prothrombin Time 11.0 SEC (9.6-11.6) Prothromb Time International Ratio 1.04 (0.85-1.15) Activated Partial Thromboplast Time 29.1 SEC (26.3-35.5) D-Dimer Quantitative (PE/DVT) 219 ng/mL (0-500) Sodium Level 142 mmol/L (136-145) Potassium Level 4.1 mmol/L (3.5-5.1) Chloride Level 104 mmol/L (101-111) Carbon Dioxide Level 32 mmol/L (21-32) Blood Urea Nitrogen 23 mg/dL (7-18) H Creatinine 1.0 mg/dL (0.5-1.0) Glomerular Filtration Rate Calc 61 mL/min (>90) Random Glucose 128 mg/dL (70-105) H Total Calcium 9.2 mg/dL (8.5-10.1) Total Bilirubin 0.4 mg/dL (0.2-1.0) Direct Bilirubin 0.1 mg/dL (0.0-0.3) Aspartate Amino Transf (AST/SGOT) 15 U/L (10-37) Alanine Aminotransferase (ALT/SGPT) 27 U/L (12-78) Alkaline Phosphatase 69 U/L (50-136) Troponin I High Sensitivity 8 ng/L (4-50) B-Type Natriuretic Peptide 70 pg/mL (0-100) Total Protein 6.5 g/dL (6.0-8.3) Albumin 3.1 g/dL (3.5-5.0) L Labs Reviewed?: Yes EKG Comment: Heart rate 103 atrial fibrillation with rapid ventricular response no STEMI ED Course ED Course Orders Procedure Category Date Status Time B-Type Natriuretic LAB 07/03/25 Complete Peptide 16:22 12 Lead Ekg Tracing- EKG 07/03/25 Complete Technical 16:22 Basic Metabolic Panel LAB 07/03/25 Complete 16:22 Cbc With Differential LAB 07/03/25 Complete 16:22 Hepatic Function Panel LAB 07/03/25 Complete 16:22 Pt And Ptt LAB 07/03/25 Complete 16:22 Troponin I High LAB 07/03/25 Complete Sensitivity 16:22 Chest 1vw RAD 07/03/25 Taken 16:22 D-Dimer LAB 07/03/25 Complete 16:22 Ct Chest Pe Protocol CT 07/03/25 Logged Wwo Cont 17:18 Metoprolol Tartrate PHA 07/03/25 Complete (Lopressor) 17:30 Metoprolol Tartrate PHA 07/03/25 Transmitted (Lopressor) 18:30 Current Medications Medications (Trade) Dose Ordered Sig/Cory Route PRN Reason Start Time Stop Time Status Last Admin Dose Admin Metoprolol Tartrate (loprESSOR) 5 mg ONCE ONCE IV 07/03/25 17:30 07/03/25 17:31 DC Vital Signs Date Time Temp Pulse Resp B/P (MAP) Pulse Ox O2 Delivery O2 Flow Rate FiO2 07/03/25 18:01 98.1 93 24 115/57 97 Room Air* 0 07/03/25 16:18 98.2 114 22 114/69 96 Room Air* 0 07/03/25 16:16 98.2 114 22 114/69 96 Room Air 0 Medical Decision Making MDM MDM: Differential diagnosis: Rationale: Tests considered and ordered secondary to shared decision making include: labs, ECG and radiology Previous outside records reviewed: Old ER visits. Risk of complication and/or morbidity or mortality of patient management: None Medications-Per medication reconciliation Need for hospitalization: Patient does meet criteria for hospitalization. Need for emergency major/minor surgery: No There are no social concerns with this patient. Prescription drug management Prescriptions will include symptomatic care Patient's prior external medical records from other ER visits were reviewed by me as indicated. Prior testing and results from previous visits were reviewed. Prior tests were taken into account with medical decision making and resource utilization, independent historian/historians were used to obtain complete medical history. I independently interpreted the test that were performed, results were reviewed by me and considered findings on radiology if ordered. Medical management and examination interpretation discussions were had by me with other qualified healthcare professionals as indicated for the patient's care. 69-year-old female was dyspnea and AFib RVR given Lopressor admitting for full workup and cardiology consultation. Critical Care Note Comment(s) Total critical care time was 33 minutes. Excluding time for procedures. Management of critically ill patient with concern for acute decompensation. Management included interpretation of laboratory values and imaging, hemodynamics, time for consultation with consultants and admitting physician. DX & DISP Disposition: Inpatient Departure Impression: Primary Impression: Atrial fibrillation with RVR Condition: Stable Referrals: ARLEN DAVENPORT M.D. (PCP) AJITH PARIKH MD Jul 03, 2025 18:00
--- NOTE | 2025-07-03 18:18 | HP ---
History of Present Illness Reason for Visit: sob History of Present Illness Ms. Neftali Ibrahim is a 69-year-old female that was seen today on 07/03/2025. Patient is a good historian of personal health Patient reports that she came to the emergency department with a chief complaint of shortness of breath. Onset was one week ago. Location is to lungs. Duration is on and off. Character is described as" like I can not catch my breath." there was no alleviating factors. Symptoms are aggravated with physical activity. Patient denies any associated chest pain or dizziness. Toda y in the emergency department EKG showed atrial fibrillation with a rapid ventricular response. For this reason emergency room physician recommended admission to the hospital. Patient responded well to IV metoprolol. Past Medical History Patient History: Alzheimer's disease FATHER Chronic obstructive pulmonary disease FATHER Completed stroke Unknown MOTHER FATHER ADDITIONAL PAST MEDICAL HISTORY: [Hypertension, osteoarthritis, atrial fibrillation on chronic anticoagulation with DOAC SOCIAL HISTORY: [Negative for smoking, alcohol use, drug use. Patient lives with her Boogie Ibrahim. Patient is typically independent of all her ADLs. Patient denies difficulty paying her bills. 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 Patient has good access to healthcare through insurance.] SURGICAL HISTORY: [Gastric sleeve, hernia repair with mesh, left foot surgery x 5] Review of Systems General: No Fever, No Chills, No Night Sweats, No Fatigue, No Malaise, No Appetite, No Other HEENT: No Head Aches, No Visual Changes, No Eye Pain, No Ear Pain, No Dysp hasia, No Sinus Congestion, No Post Nasal Drip, No Sore Throat, No Other Pulmonary: Dyspnea; No Cough, No Pleuritic Chest Pain, No Other Cardiovascular: No: Chest Pain, Palpitations, Orthopnea, Paroxysmal Noc. Dy spnea, Edema, Lt Headedness, Other Gastrointestinal: No: Nausea, Vomiting, Abdominal Pain, Diarrhea, Constipation, Melena, Hematochezia, Other Genitourinary: No Dysuria, No Frequency, No Incontinence, No Hematuria, No Retention, No Other Musculoskeletal: No: other, neck pain, shoulder pain, arm pain, back pain, hand pain, leg pain, foot pain Skin: No Urticaria, No Rash, No Other Neurological: No: Weakness, Numbness, Incoordination, Change in speech, Confusion, Seizures, Other Allergies: Coded Allergies: No Known Drug Allergies (Verified Allergy, 11/28/13) Scheduled Apixaban (Eliquis), 10 MG PO BID Apixaban (Eliquis), 5 MG PO BID Diltiazem HCl (Diltiazem HCl), 120 MG PO DAILY, (Reported) Estradiol (Estrace), 1 GM VG HS, (Reported) Hydrochlorothiazide (Hydrochlorothiazide), 1 TAB PO DAILY, (Reported) Latanoprost (Latanoprost), 2.5 ML OP HS, (Reported) Lisinopril (Lisinopril), 1 TAB PO DAILY Meloxicam (Meloxicam), 15 MG PO HS, (Reported) Montelukast Sodium (Montelukast Sodium), 10 MG PO HS, (Reported) Rivaroxaban (Xarelto), 1 TAB PO DAILY, (Reported) Spironolactone (Spironolactone), 25 MG PO DAILY Exam Vital Signs Vital Signs Date Time Temp Pulse Resp B/P (MAP) Pulse Ox O2 Delivery O2 Flow Rate FiO2 07/03/25 18:01 98.1 93 24 115/57 97 Room Air* 0 21 General Appearance: Alert, Oriented X3, Cooperative, No acute distress HEENT: Atraumatic, EOMI, Mucous membr. moist/pink Respiratory: Clear to auscultation, Normal air movement, NL respiratory effort Cardiovascular: Normal S1, Normal S2, Other (Atrial fibrillation) Abdominal: Normal bowel sounds, Soft, No tenderness Extremities: No edema Skin: No significant lesion Neuro: Normal speech, Strength at 5/5 X4 ext, Sensation intact, Cranial nerves 3-12 NL Psych/Mental Status: Mental status NL, Mood NL, Thoughts/Content NL Assessment/Plan ASSESSMENT: [ AFib with a RVR, POA Hypertension Osteoarthritis PLAN: [ Admit patient to medical floor as inpatient status. Place patient on telemetry monitoring. Administer metoprolol 5 mg IV every 5 minutes as needed for AFib RVR with heart rate greater than 120 beats per minute max three doses. Metoprolol 12.5 mg by mouth times 1 Metoprolol 12.5 mg by mouth twice daily Resume Eliquis 5 mg by mouth twice daily, DOAC Consider resuming home medications once they have been reconciled. At time of admission home medications has been reconciled For now: Hydralazine 10 mg IV every 4 hours for systolic blood pressure greater than 160 mmHg As needed analgesia with morphine At this time rate is controlled and has responded well to low doses of metoprolol GI prophylaxis, famotidine DVT prophylaxis, DOAC ADVANCED CARE PLANNING 1. Which of the following were discussed? Hospice Care - Yes Therapeutic options - yes Advance Directives - Yes - patient states he does not have any advance directives in place at this time, however has been can make decisions for her if she becomes unable. Other discussions - patient wishes to remain a full code at this time 2. Discussed with who? Patient 3. Voluntary nature of this service was explained to the patient? Yes 4. Amount of time spent - ___16 minutes____ 5. Reviewed by Physician? (if this service was performed by NPP) Yes This document was generated in part using voice recognition software, occasional wrong word or sound alike substitutions may have occurred due to the inherent limitations of voice recognition software. Read the chart carefully and recognize using context, where the substitutions have occurred. Although every effort was made to edit the content, frog or oyster farmworker and typing errors may occur ATTESTATION BY PHYSICIAN I have seen and examined the patient. I reviewed the documentation, medical decision making, and treatment plan as noted by the mid-level provider above. I agree with the findings and plan of care. BOOGIE HERNANDEZ [facility] Jul 03, 2025 18:18
[2025-07-03] MEDS ORDERED: IOHEXOL-350 75 ML VIAL IV ONE (18:28)
[2025-07-03] MEDS ORDERED: PHARMACY COMMUNICATION MISC SCH (18:30)
[2025-07-03] MEDS ORDERED: LACTULOSE 20 GM/30 ML UDCUP PO PRN (18:30)
--- NOTE | 2025-07-03 18:47 | HMCIMG ---
EXAM: CR Chest, 1 View. CLINICAL HISTORY: sob COMPARISON: X-ray chest 07/09/2024 FINDINGS: LUNGS: The lungs show no infiltrate or other acute finding. PLEURAL SPACES: No evidence of pleural effusion or pneumothorax. MEDIASTINUM: Cardiac size and mediastinal contours within normal limits. BONES: No aggressive appearing osseous lesion seen. IMPRESSION: No acute cardiopulmonary pathology is evident. /[place]
--- NOTE | 2025-07-03 19:43 | NUR ---
report given to nurse jos and nurse kenneth, patient transfered to ed 04
[2025-07-03 20:00] VITALS: BP 107/61; PULSE 91; RESP 21; TEMP 97.7
[2025-07-03 20:24] LABS: APPEARANCE,URINE CLEAR (CLEAR); GLUCOSE, URINE (UA) NEGATIVE (NEGATIVE); LEUKOCYTE ESTERASE ,URINE NEGATIVE Leu/uL (NEGATIVE); NITRATE,URINE NEGATIVE (NEGATIVE); OCCULT BLOOD,URINE NEGATIVE (NEGATIVE)
[2025-07-03 20:34] LABS: ADD UA MICROSCOPIC YES
[2025-07-03 20:38] LABS: SQUAMOUS EPITHELIAL CELL,UR FEW /HPF (0-2)
--- NOTE | 2025-07-03 20:46 | HMCIMG ---
EXAM: CTA Chest with and without Intravenous Contrast for PE evaluation CLINICAL HISTORY: r/o PE TECHNIQUE: Axial CTA images of the chest with and without intravenous contrast using a pulmonary embolism protocol. Multiplanar reconstructed images were created and reviewed. CONTRAST: was administered without incident. COMPARISON: CT angiography dated August 20, 2024. FINDINGS: PULMONARY ARTERIES: No evidence of central or segmental pulmonary embolism. Subsegmental pulmonary arteries were not adequately characterized secondary to lack of opacification. The main pulmonary artery is mildly dilated, measures up to 3.4 cm. The right pulmonary artery measures up to 2.8 cm, and left measures up to 2.9 cm. AORTA: There is no evidence for aneurysm or dissection of the thoracic aorta. LUNGS: 4.5 mm, 4.2 mm, and 4 mm solid nodules in the right lower lobe. Lungs are otherwise clear. PLEURAL SPACES: No evidence of pneumothorax. No pleural effusion. HEART: Mild cardiomegaly. No significant pericardial effusion. Atherosclerotic wall calcifications in the arch of aorta. There is mild tortuosity of the descending thoracic aorta. LYMPH NODES: No lymphadenopathy is evident. BONES: Moderate multilevel degenerative changes in the spine. The bones are osteopenic. There is ossification of the interspinous ligaments and ALL. There are calcifications in the intervertebral discs at few levels. There is dextroscoliosis of the dorsal spine. No focal osseous abnormality or acute fracture. UPPER ABDOMEN: Multiple calcified granulomas in liver and spleen. A moderate size hiatal hernia. The gallbladder is surgically absent. There are postoperative changes in the stomach. IMPRESSION: No obvious embolus within the pulmonary trunk, main pulmonary arteries, or segmental arteries. Subsegmental arteries were not adequately opacified for characterization. Prominent pulmonary arteries suggest a component of pulmonary arterial hypertension. Recommend echocardiography correlation. A few solid nodules in the right lower lobe (< 5 mm), no interval changes. /[place]
[2025-07-03] MEDS ORDERED: ESTR42.53 VG (21:40)
[2025-07-03] MEDS ORDERED: HYDR12.54 PO (21:40)
[2025-07-03] MEDS ORDERED: RIVA20TA PO (21:40)
[2025-07-03 21:50] VITALS: BP 104/85; PULSE 86; RESP 20; TEMP 98.6
[2025-07-03 22:15] VITALS: BP 143/66; PULSE 80; RESP 20; TEMP 98
--- NOTE | 2025-07-03 22:15 | NUR ---
Arrival to unit Patient alert and orientated x4, no pain or signs of distress. transferred by ED by stretcher. Ambulated to bed. bed in lowest position with call light within reach
[2025-07-04] VITALS (7 sets, daily range): BP systolic 118–149; BP diastolic 54–73; PULSE 67–93; RESP 15–20; TEMP 97.6–98.3; O2SAT 94–95
[2025-07-04 04:13] LABS: IMMATURE GRANULOCYTE ABSOLUTE 0.14 K/uL (0-1); NUCLEATED RED BLOOD CELLS 0.0 % (0.0-0.19); PLATELET COUNT (AUTO) 286 K/uL (130-400); RED BLOOD CELL COUNT(AUTO) 3.31 MIL/uL (4.00-5.50); RED CELL DISTRIBUTION WIDTH 13.4 % (11.0-15.5); WHITE BLOOD COUNT (AUTO) 7.5 K/uL (4.8-10.8)
[2025-07-04 04:54] LABS: CREATININE 0.7 mg/dL (0.5-1.0); GLOMERULAR FILTR. RATE CALC 93.0 mL/min (>90); GLUCOSE,RANDOM 96.0 mg/dL (70-105); PHOSPHORUS 3.8 mg/dL (2.5-4.9); SODIUM SERUM 138.0 mmol/L (136-145); UREA NITROGEN, BLOOD 21.0 mg/dL (7-18)
[2025-07-04] MEDS: FAMOTIDINE 20MG TAB PO SCH (08:51)
--- NOTE | 2025-07-04 11:43 | HMCIMG ---
US VENOUS DOPPLER BILATERAL REASON: Bilateral lower extremity swelling COMPARISON: None Technique: Bilateral venous doppler ultrasound was performed with spectral analysis and color flow imaging technique. FINDINGS: There is a normal appearance of the common femoral, deep femoral, the profunda femoris and popliteal veins. Proximal calf veins appear normal as well. There is normal response to compression and augmentation. There is no evidence of deep venous thrombosis. IMPRESSION: Normal bilateral lower extremity venous Doppler ultrasound.
--- NOTE | 2025-07-04 12:34 | PN ---
[facility] PROGRESS NOTE Date of Service: Jul 04, 2025 Time of Service: 11:48 SUBJECTIVE: Patient is a 69-year-old female with past medical history of hypertension, osteoporosis of both knee and atrial fibrillation for which she is on Xarelto. The patient came to the ER with complain of shortness of breaths since 1 week and has progressed since then such that the patient has shortness of breath even when she goes to the washroom. The patient complains of no chest pain, dizziness, vertigo, and syncope. The patient stated that she started taking nwke-rph-[id number] drug called ArtiKing for the past 2 months after her friend recommended it for her knee pain and it got better. On Monday the patient went to her PCP for her regular appointment in which she discussed the [id number] medication with the doctor and the doctor recommended her to follow up with the orthopedic due to potential side effects of the drug and advised to stop the medication, which the patient did. On the patient was treated her orthopedic and discussed the medication. The orthopedic told her to stop the medication as it contained steroids and advised the patient to go to the ER for shortness of breaths and tapering off the medication. The patient has a history of sleep apnea for which she used to use CPAP but according to the patient she has not used that in years. She has gained 40 lb in 1 month. On admission, blood pressure was 114/69, pulse rate 104, respiratory rate 22 and oxygen saturation 96% on room air. EKG was done that showed atrial fibrillation with rapid ventricular response. Her BNP was 70, D-dimer 219, troponin 8, and HGB A1c 5.3. Chest x-ray was nonsignificant for any cardiopulmonary pathology. Chest x-ray showed no pulmonary embolism but but suggested pulmonary artery hypertension for which echo was recommended. 07/04/2025: The patient is alert, awake, and oriented. She is complaining of shortness of breaths while going to the restroom but no chest pain. Today the patient is rhythm was sinus with pulse rate of 78. Cardiology and pulmonology were consulted for shortness of breaths and atrial fibrillation. The patient also complained of bilateral lower extremity edema for which she was switched from Lasix to Bumex. Due to her use of xoiz-gxk-vohfkbr medication that contains dexamethasone, cortisol a.m. levels were ordered. Due to patient's shortness of breath, ABGs were ordered but the patient refused ABGs. REVIEW OF SYSTEMS CONSTITUTIONAL: Denies fevers, chills, or night sweats. No unintentional weight loss reported. Osteoarthritis of both knees NEUROLOGICAL: Denies headache, amaurosis fugax, motor weakness, sensory deficit, vertigo/spinning sensation, gait abnormalities, or tremors. ENT: No hearing loss, otalgia, otorrhea, rhinitis, rhinorrhea, hoarseness, or sore throat. CARDIOVASCULAR: Denies any exertional angina, dyspnea on exertion, orthopnea, paroxysmal nocturnal dyspnea, palpitations, life-threatening arrhythmias, claudication. PULMONARY: Shortness of breaths on doing minimal exertion SLEEP: History of sleep apnea for which he used CPAP many years ago GASTROINTESTINAL: Denies any type of dysphagia to either liquids or solids. Denies nausea, vomiting, pyrosis, early satiety, abdominal pain, diarrhea, constipation, or changes in stool consistency or caliber. Denies coffee-ground emesis, hematemesis, hematochezia, or melanotic stools. GENITOURINARY: Denies frequency, urgency, nocturia, hematuria or incontinence (Storage/Irritative symptoms.) Low urinary stream, straining to void, urinary intermittency or hesitancy, splitting of the voiding stream, terminal dribbling. ENDOCRINOLOGIC: Denies polyuria, polydipsia, polyphagia or heat/cold intolerances. PHYSICAL EXAM GENERAL APPEARANCE: The patient is awake, alert, and oriented. Obese NEUROLOGICAL: Cranial nerves II-XII grossly intact. Motor is 5/5 in bilateral upper and lower extremities proximal to distal. No sensory deficits. HEENT: Face is symmetric. Pupils are equal and reactive. Extraocular movements are intact. NECK: Supple. No JVD. No thyromegaly. No submental, submandibular, pre- /postauricular, occipital or supraclavicular lymphadenopathy. CHEST: Normal chest expansion. No Telemetry. LUNGS: Absence of any rales, rhonchi or any wheezing. CARDIOVASCULAR: Regular. S1 and S2 normal. No appreciable rubs, murmurs or gallops. ABDOMEN: Soft, nontender, and nondistended. There is no rebound, voluntary guarding, or rigidity. : Deferred. No Wilson. EXTREMITIES: Bilateral Lower extremity pitting edema SKIN: No skin breakdown. Vital Signs (last 8hr) Date Time Temp Pulse Resp B/P (MAP) Pulse Ox O2 Delivery O2 Flow Rate FiO2 07/04/25 08:00 97.9 80 16 131/54 94 Room Air 07/04/25 07:30 94 Room Air* 0 21 07/04/25 06:49 130 118/62 07/04/25 04:00 98.1 78 20 118/63 94 Room Air LABS: Laboratory: Test 07/04/25 03:55 07/03/25 20:10 07/03/25 16:36 Range/Units White Blood Count 7.5 4.8-10.8 K/uL Red Blood Count 3.31 L 4.00-5.50 MIL/uL Hemoglobin 10.6 L 12.0-16.0 g/dL Hematocrit 32.6 L 36-48 % Mean Corpuscular Volume 98.5 79-99 fL Mean Corpuscular Hemoglobin 32.0 27.0-33.0 pg Mean Corpuscular Hemoglobin Concent 32.5 32.0-36.0 g/dL Red Cell Distribution Width 13.4 11.0-15.5 % Platelet Count 286 130-400 K/uL Mean Platelet Volume 8.7 7.5-10.5 fL Immature Granulocyte % (Auto) 1.9 H 0-1 % Neutrophils (%) (Auto) 49.0 40.0-77.0 % Lymphocytes (%) (Auto) 32.8 21.0-51.0 % Monocytes (%) (Auto) 12.4 3.0-13.0 % Eosinophils (%) (Auto) 3.6 0.0-8.0 % Basophils (%) (Auto) 0.3 0.0-5.0 % Neutrophils # (Auto) 3.7 1.8-7.7 K/uL Lymphocytes # (Auto) 2.5 1.0-4.8 K/uL Monocytes # (Auto) 0.9 0.1-1.0 K/uL Eosinophils # (Auto) 0.27 0.00-0.70 K/uL Basophils # (Auto) 0.02 0.00-0.20 K/uL Absolute Immature Granulocyte (auto 0.14 0-1 K/uL Nucleated Red Blood Cells 0.0 0.0-0.19 % Sodium Level 138 136-145 mmol/L Potassium Level 4.0 3.5-5.1 mmol/L Chloride Level 103 101-111 mmol/L Carbon Dioxide Level 31 21-32 mmol/L Blood Urea Nitrogen 21 H 7-18 mg/dL Creatinine 0.7 0.5-1.0 mg/dL Glomerular Filtration Rate Calc 93 >90 mL/min Random Glucose 96 70-105 mg/dL Total Calcium 9.0 8.5-10.1 mg/dL Phosphorus Level 3.8 2.5-4.9 mg/dL Magnesium Level 1.90 1.80-2.40 mg/dL Urine Color YELLOW YELLOW Urine Appearance CLEAR CLEAR Urine pH 6.0 5.0-8.0 Urine Specific [place] OVER 1.001-1.031 Urine Protein NEGATIVE NEGATIVE mg/dL Urine Glucose (UA) NEGATIVE NEGATIVE mg/dL Urine Ketones NEGATIVE NEGATIVE mg/dL Urine Occult Blood NEGATIVE NEGATIVE Urine Nitrate NEGATIVE NEGATIVE Urine Bilirubin NEGATIVE NEGATIVE mg/dL Urine Urobilinogen 2.0 H 0.2-1.0 mg/dL Urine Leukocyte Esterase NEGATIVE NEGATIVE Tim/uL Urine RBC 2-5 H 0-1 /HPF Urine WBC 2-5 H 0-1 /HPF Urine Squamous Epithelial Cells FEW 0-2 /HPF Urine Bacteria RARE None Seen /HPF Prothrombin Time 11.0 9.6-11.6 SEC Prothromb Time International Ratio 1.04 0.85-1.15 Activated Partial Thromboplast Time 29.1 26.3-35.5 SEC D-Dimer Quantitative (PE/DVT) 219 0-500 ng/mL Hemoglobin A1c 5.3 4.0-6.0 % Estimated Average Glucose (eAG) 105 70-126 mg/dL Total Bilirubin 0.4 0.2-1.0 mg/dL Direct Bilirubin 0.1 0.0-0.3 mg/dL Aspartate Amino Transf (AST/SGOT) 15 10-37 U/L Alanine Aminotransferase (ALT/SGPT) 27 12-78 U/L Alkaline Phosphatase 69 50-136 U/L Troponin I High Sensitivity 8 4-50 ng/L B-Type Natriuretic Peptide 70 0-100 pg/mL Total Protein 6.5 6.0-8.3 g/dL Albumin 3.1 L 3.5-5.0 g/dL Current Medications Medications (Trade) Dose Ordered Sig/Cory Route PRN Reason Start Time Stop Time Status Last Admin Dose Admin Acetaminophen (TYLenol 325MG TAB) 650 mg Q6H PRN PO TEMPERATURE GREATER THAN 101.5 07/03/25 18:30 08/02/25 18:29 Apixaban (EliquIS) 5 mg BID PO 07/03/25 21:00 07/04/25 09:15 DC 07/04/25 08:49 5 MG Bumetanide (Bumex 1mg Tab) 1 mg BID PO 07/04/25 21:00 08/03/25 20:59 Diltiazem HCl (CARDIzem 120MG CD) 120 mg DAILY PO 07/05/25 09:00 08/04/25 08:59 Famotidine (Pepcid 20mg Tab) 20 mg DAILY PO 07/04/25 09:00 08/03/25 08:59 07/04/25 08:51 20 MG Furosemide (LASix 20MG TAB) 20 mg BID@09,17 PO 07/04/25 09:00 07/04/25 11:00 DC 07/04/25 08:51 20 MG Home Med (Home Medication) (Estradiol (Estrace) 1 GM) HS VG 07/04/25 21:00 08/03/25 20:59 Hydralazine HCl (APRESOLine 20MG INJ) 10 mg Q6H PRN IV For:SBP above 160;DBP above 90 07/03/25 18:30 08/02/25 18:29 Hydrochlorothiazide (hydroCHLOROthiazide 25MG) 12.5 mg DAILY PO 07/05/25 09:00 08/04/25 08:59 Insulin Human Regular (humuLIN R 100 UNIT/ML 3ML) INSULIN SLIDING SCAL... ACHS SQ 07/03/25 21:00 08/02/25 20:59 Lactulose (Constulose 20gm/ 30ml Udcup) 20 gm BID PRN PO CONSTIPATION 07/03/25 18:30 08/02/25 18:29 Latanoprost (Xalatan) 1 DROP HS OP 07/04/25 21:00 08/03/25 20:59 Lisinopril (Prinivil 20mg) 20 mg DAILY PO 07/05/25 09:00 08/04/25 08:59 Meloxicam (Mobic 7.5mg) 15 mg HS PO 07/04/25 21:00 08/03/25 20:59 Metoprolol Tartrate (loprESSOR) 5 mg Q5MIN PRN IV AFIB RVR HEART RATE > 120 BPM 07/03/25 18:30 07/04/25 06:49 5 MG Metoprolol Tartrate (loprESSOR) 12.5 mg BID PO 07/03/25 21:00 08/02/25 20:59 07/04/25 08:49 12.5 MG Montelukast Sodium (SinguLAIR) 10 mg HS PO 07/04/25 21:00 08/03/25 20:59 Morphine Sulfate (morPHINE 2MG SYG) 2 mg Q4H PRN IVP SEVERE PAIN (7-10) 07/03/25 18:30 07/10/25 18:29 Ondansetron HCl (zoFRAN 4MG INJ) 4 mg Q6H PRN IV NAUSEA/VOMITING 07/03/25 18:30 08/02/25 18:29 Pharmacy Profile Note (Pharmacy Communication) 1 each ONCE MISC 07/03/25 18:30 07/03/25 18:24 DC Rivaroxaban (Xarelto) 20 mg DAILY PO 07/04/25 21:00 08/03/25 20:59 Spironolactone (Aldactone 25mg) 25 mg DAILY PO 07/05/25 09:00 08/04/25 08:59 DIAGNOSTICS / RADIOLOGY: PATIENT: CARRIE ELMUS MR#: [id number] : 1955 SEX: F AGE: 69 LOCATION: [facility] ORDER 23 STATUS: ADM IN REPORT#: [id number] SERVICE 162 REASON: sob ORDERING PHYSICIAN: AJITH PARIKH MD PROCEDURE: CXR1VW - CHEST 1VW EXAM: CR Chest, 1 View. CLINICAL HISTORY: sob COMPARISON: X-ray chest 07/09/2024 FINDINGS: LUNGS: The lungs show no infiltrate or other acute finding. PLEURAL SPACES: No evidence of pleural effusion or pneumothorax. MEDIASTINUM: Cardiac size and mediastinal contours within normal limits. BONES: No aggressive appearing osseous lesion seen. IMPRESSION: No acute cardiopulmonary pathology is evident. /[place] DICTATED BY: JG HOPPER MD DATE: 07/03/251945 ELECTRONICALLY SIGNED BY: JG HOPPER MD DATE: 07/03/251945 PATIENT: CARRIE LEMUS MR#: [id number] : 1955 SEX: F AGE: 69 LOCATION: [facility] ORDER 18 STATUS: ADM IN REPORT#: [id number] SERVICE 17 REASON: r/o PE ORDERING PHYSICIAN: AJITH PARIKH MD PROCEDURE: CHES PE - CT CHEST PE PROTOCOL WWO CONT EXAM: CTA Chest with and without Intravenous Contrast for PE evaluation CLINICAL HISTORY: r/o PE TECHNIQUE: Axial CTA images of the chest with and without intravenous contrast using a pulmonary embolism protocol. Multiplanar reconstructed images were created and reviewed. CONTRAST: was administered without incident. COMPARISON: CT angiography dated August 20, 2024. FINDINGS: PULMONARY ARTERIES: No evidence of central or segmental pulmonary embolism. Subsegmental pulmonary arteries were not adequately characterized secondary to lack of opacification. The main pulmonary artery is mildly dilated, measures up to 3.4 cm. The right pulmonary artery measures up to 2.8 cm, and left measures up to 2.9 cm. AORTA: There is no evidence for aneurysm or dissection of the thoracic aorta. LUNGS: 4.5 mm, 4.2 mm, and 4 mm solid nodules in the right lower lobe. Lungs are otherwise clear. PLEURAL SPACES: No evidence of pneumothorax. No pleural effusion. HEART: Mild cardiomegaly. No significant pericardial effusion. Atherosclerotic wall calcifications in the arch of aorta. There is mild tortuosity of the descending thoracic aorta. LYMPH NODES: No lymphadenopathy is evident. BONES: Moderate multilevel degenerative changes in the spine. The bones are osteopenic. There is ossification of the interspinous ligaments and ALL. There are calcifications in the intervertebral discs at few levels. There is dextroscoliosis of the dorsal spine. No focal osseous abnormality or acute fracture. UPPER ABDOMEN: Multiple calcified granulomas in liver and spleen. A moderate size hiatal hernia. The gallbladder is surgically absent. There are postoperative changes in the stomach. IMPRESSION: No obvious embolus within the pulmonary trunk, main pulmonary arteries, or segmental arteries. Subsegmental arteries were not adequately opacified for characterization. Prominent pulmonary arteries suggest a component of pulmonary arterial hypertension. Recommend echocardiography correlation. A few solid nodules in the right lower lobe (< 5 mm), no interval changes. /[place] DICTATED BY: POOL HADDAD Jr., MD DATE: 07/03/252144 ELECTRONICALLY SIGNED BY: POOL HADDAD Jr., MD DATE: 07/03/252144 ASSESSMENT: AFib with a RVR, POA Shortness of Breath possibly due to poly pharmacy use, POA Anemia Sleep Apnea Hypertension Osteoarthritis BMI 47.1 PLAN: AFib with a RVR, POA Monitor rhythm Keep on telemetry Cardiology stopped patient's metoprolol and ordered to continue Xarelto 20 mg Shortness of Breath due to possible poly pharmacy use, Chest x-ray negative CT chest negative for pulmonary embolism. Possible pulmonary artery hypertension. Ordered echo. Ordered cortisol a.m. to measure cortisol levels after ArtiKing use. Ordered 6 minute walk test Cardiology consult Pulmonology consult Ordered ABG. Patient refused ABGs 3+ pitting edema Order urine protein creatinine ratio Ultrasound Doppler lower extremity negative for VTE. Lasix 20 mg b.i.d. changed to Bumex 1 mg b.i.d. Anemia Hemoglobin 10.6 Iron panel ordered Ferritin is 93 PHYSICIAN RESIDENT STATEMENT I was present with the resident during the History and Physical exam and I have reviewed the resident's note. This case was discussed with the resident and I agree with the history, physical exam and medical decision making as documented. Additions/exceptions/observations were directly added to the notes. Andrzej Tavares MD, SYED M MD Jul 04, 2025 12:34
--- NOTE | 2025-07-04 13:41 | CONS ---
Cardiology Consult Note Attending Golf Caddie: Dr. Tacho Son Primary Golf Caddie: Dr. Tacho Ortiz Consulting Physician: Hospitalist Date of Service: 07/04/2025 Reason for Consult: Shortness of breath HPI: This is a 69y/o female with a past medical history of HTN, paroxysmal atrial fibrillation, on anticoagulation, low-normal LV systolic function (LVEF: 50-55% by echo done 08/21/2024), pulmonary hypertension (RVSP: 45 mmHg), h/o right popliteal vein thrombus and extensive bilateral PE (R>L) in 08/2024, OA, and morbid obesity who presents with CERVANTES of 1 week in duration. The symptoms began spontaneously and over the ensuing timeframe have been constant and have progressively worsened. Previously the patient could walk half a block before she would develop symptoms, but prior to admission she would develop symptoms after walking 5 feet. The symptoms were exacerbated by fast paced walking or prolonged conversations and would slowly resolve with rest. Associated symptoms include weight gain (40 lbs in 1 month) and bilateral lower extremity swelling. Pertinent negatives include headache, dizziness, syncope, chest pain, chest pressure, palpitations, PND, orthopnea, abdominal pain, nausea, vomiting, diaphoresis, fever, or chills. The patient's progression of symptoms prompted her to seek a higher level of care. Cardiology was consulted for treatment recommendations. PMH: Listed above PSH: Listed above FH: Significant for HTN, HLP SH: Denies alcohol, tobacco, or illicit drug use. Allergies: Coded Allergies: No Known Drug Allergies (Verified Allergy, 11/28/13) Review of systems: General: Denies fever or chills. HEENT: Denies changes in vision, earache or sore throat. Cardio: As per the HPI Pulm: As per the HPI GI: Denies abdominal pain, nausea, vomiting, diarrhea, or constipation. MSK: Positive for joint pain. Heme: Denies anemia, easy bruising, or bleeding. Neuro: Denies headache, dizziness, or syncope. Psyche: Denies anxiety, depression, or suicidal ideation. Physical Exam: Vital Signs Date Time Temp Pulse Resp B/P (MAP) Pulse Ox O2 Delivery O2 Flow Rate FiO2 07/04/25 12:00 98.1 93 15 143/69 95 Room Air 07/04/25 07:30 0 21 General: Alert and oriented. NAD. HEENT: NC/AT. Oral mucosa is moist. Neck: No masses, JVD, or carotid bruits. Dorsocervical fat pad. Lungs: NRD. SCM. Bilateral air entry. Clear to auscultation bilaterally. No obvious wheezing, rales, or rhonchi. Cardio: Regular rate. Normal S1 and S2. +S4. No obvious murmurs, gallops, or rubs noted. Abdomen: Obese abdomen. Soft. NT. ND. Normal active bowel sounds x 4 quadrants. Extremities: 1+ pitting edema seen in the bilateral lower extremities. Hyperpigmentation noted to the bilateral lower extremities. Diminished throughout. Neuro: CN II-XII were grossly intact. No obvious focal deficits. Labs: Laboratory Tests Test 07/03/25 16:36 07/03/25 20:10 07/04/25 03:55 Range/Units White Blood Count 8.4 7.5 4.8-10.8 K/uL Red Blood Count 3.65 L 3.31 L 4.00-5.50 MIL/uL Hemoglobin 11.6 L 10.6 L 12.0-16.0 g/dL Hematocrit 36.5 32.6 L 36-48 % Mean Corpuscular Volume 100.0 H 98.5 79-99 fL Mean Corpuscular Hemoglobin 31.8 32.0 27.0-33.0 pg Mean Corpuscular Hemoglobin Concent 31.8 L 32.5 32.0-36.0 g/dL Red Cell Distribution Width 13.4 13.4 11.0-15.5 % Platelet Count 309 286 130-400 K/uL Mean Platelet Volume 8.7 8.7 7.5-10.5 fL Immature Granulocyte % (Auto) 1.9 H 1.9 H 0-1 % Neutrophils (%) (Auto) 56.1 49.0 40.0-77.0 % Lymphocytes (%) (Auto) 29.1 32.8 21.0-51.0 % Monocytes (%) (Auto) 10.2 12.4 3.0-13.0 % Eosinophils (%) (Auto) 2.3 3.6 0.0-8.0 % Basophils (%) (Auto) 0.4 0.3 0.0-5.0 % Neutrophils # (Auto) 4.7 3.7 1.8-7.7 K/uL Lymphocytes # (Auto) 2.5 2.5 1.0-4.8 K/uL Monocytes # (Auto) 0.9 0.9 0.1-1.0 K/uL Eosinophils # (Auto) 0.19 0.27 0.00-0.70 K/uL Basophils # (Auto) 0.03 0.02 0.00-0.20 K/uL Absolute Immature Granulocyte (auto 0.16 0.14 0-1 K/uL Nucleated Red Blood Cells 0.0 0.0 0.0-0.19 % Prothrombin Time 11.0 9.6-11.6 SEC Prothromb Time International Ratio 1.04 0.85-1.15 Activated Partial Thromboplast Time 29.1 26.3-35.5 SEC D-Dimer Quantitative (PE/DVT) 219 0-500 ng/mL Sodium Level 142 138 136-145 mmol/L Potassium Level 4.1 4.0 3.5-5.1 mmol/L Chloride Level 104 103 101-111 mmol/L Carbon Dioxide Level 32 31 21-32 mmol/L Blood Urea Nitrogen 23 H 21 H 7-18 mg/dL Creatinine 1.0 0.7 0.5-1.0 mg/dL Glomerular Filtration Rate Calc 61 93 >90 mL/min Random Glucose 128 H 96 70-105 mg/dL Hemoglobin A1c 5.3 4.0-6.0 % Estimated Average Glucose (eAG) 105 70-126 mg/dL Total Calcium 9.2 9.0 8.5-10.1 mg/dL Total Bilirubin 0.4 0.2-1.0 mg/dL Direct Bilirubin 0.1 0.0-0.3 mg/dL Aspartate Amino Transf (AST/SGOT) 15 10-37 U/L Alanine Aminotransferase (ALT/SGPT) 27 12-78 U/L Alkaline Phosphatase 69 50-136 U/L Troponin I High Sensitivity 8 4-50 ng/L B-Type Natriuretic Peptide 70 0-100 pg/mL Total Protein 6.5 6.0-8.3 g/dL Albumin 3.1 L 3.5-5.0 g/dL Urine Color YELLOW YELLOW Urine Appearance CLEAR CLEAR Urine pH 6.0 5.0-8.0 Urine Specific [place] OVER 1.001-1.031 Urine Protein NEGATIVE NEGATIVE mg/dL Urine Glucose (UA) NEGATIVE NEGATIVE mg/dL Urine Ketones NEGATIVE NEGATIVE mg/dL Urine Occult Blood NEGATIVE NEGATIVE Urine Nitrate NEGATIVE NEGATIVE Urine Bilirubin NEGATIVE NEGATIVE mg/dL Urine Urobilinogen 2.0 H 0.2-1.0 mg/dL Urine Leukocyte Esterase NEGATIVE NEGATIVE Tim/uL Urine RBC 2-5 H 0-1 /HPF Urine WBC 2-5 H 0-1 /HPF Urine Squamous Epithelial Cells FEW 0-2 /HPF Urine Bacteria RARE None Seen /HPF Phosphorus Level 3.8 2.5-4.9 mg/dL Magnesium Level 1.90 1.80-2.40 mg/dL Assessment: -CERVANTES -Paroxysmal atrial fibrillation with RVR -h/o right popliteal vein thrombus and extensive bilateral PE (R>L) in 08/2024, with CTA negative for PE on 07/03/2025 and venous Doppler negative for DVT on 07/04/2025 -Normal LV systolic function (LVEF: 55-60% by echo done 07/04/2025) -HTN -OA -Morbid obesity Plan: 1. CERVANTES -BNP: 70 -CTA 07/03/2025: Negative for PE or acute pulmonary process. -2D echocardiogram 07/04/2025: Mild concentric LVH with no regional wall motion abnormalities. LV systolic function is normal with an estimated LVEF of 55-60%. RVD. Trace AR, MR, TR. PASP is 27 mmHg. No pericardial effusion. -The etiology behind the patient's symptoms is unknown, but thus far residual/recurrent PE, a volume overloaded state, systolic dysfunction, or structural heart disease has been ruled out. -Remaining differentials include an underlying infectious process, a rapid increase in body mass (40 lb weight gain in 1 month), or symptomatic atrial fibrillation with RVR. -We will test for influenza A/B and COVID and recommend that the patient remain on continuous telemetry monitoring. 2. Paroxysmal atrial fibrillation with RVR -Substrate: Dilated atria -ECG 07/03/2025: Atrial fibrillation, HR: 103 bpm -Bedside telemetry: Sinus rhythm with episodes of paroxysmal atrial fibrillation with RVR with HR ranging between 110-120 bpm -We will stop metoprolol tartrate and will instead increase diltiazem ER to 180 mg daily. Rate control therapy should be titrated in order to achieve a HR goal of less than 110 bpm with physical activity and less than 100 bpm while at rest. -CHADS2 VASc score: 5 points. Continue Xarelto 20 mg daily. -Please keep the patient on continuous telemetry monitoring and maintain electrolytes within normal parameters. Thank you for this interesting consult and allowing us to participate in the care of your patient. This case was seen and discussed with my Supervising Physician, Dr. Tacho Son, and the above mentioned plan was formulated and agreed upon. -Consult Note written by Bryan Mondragon, MSN, VB NET DEVELOPER, AGACNP-BC BRYAN MONDRAGON CHIEF TECHNICIAN X RAY Jul 04, 2025 13:41
[2025-07-04 13:52] LABS: COVID19 (SARS ANTIGEN RAPID) PRESUMPTIVE NEGATIVE (NEGATIVE)
[2025-07-04 13:59] LABS: INFLUENZA TYPE A Negative For Type A (NEGATIVE); INFLUENZA TYPE B Negative For Type B (NEGATIVE)
[2025-07-04] MEDS ORDERED: PoTASSium chl 10% ELIXIR 20MEQ 20 MEQ/15 ML UDCUP PO PRN (15:00)
--- NOTE | 2025-07-04 15:05 | HMCSR ---
APPROVED REPORT EXAM: Two-dimensional and M-mode echocardiogram with Doppler and color Doppler. INDICATION ICD: Shortness of breath R06.02 2D Dimensions RVDd4.7 cmLVEF(%)29.4 (>50%)LVED Vol(simp.)157.0 mL IVSd0.7 (0.7-1.1cm)FS(%)14 %LVES Vol(simp.)64.0 mL LVDd5.8 (3.8-5.6cm)LA (2D)4.6 (1.6-4.0cm)LVEF(%, simp.)59 % PWd1.2 (0.7-1.1cm)Ao Root(2D)3.9 (2.0-3.7cm)LA ESV INDEX (BP)30.30 mL/m2 IVSs1.2 cmLVOT diam2.9 (1.8-2.4cm) LVDs5.0 (2.5-4.0cm)IVC diam1.5 cm PWs0.9 cm Deformation Strain Apical 4-18.9 % Apical 2-16.5 % Apical 3-21.8 % Global Strain-19.1 % M-Mode Dimensions EPSS1.5 cm LA (MM)5.3 (1.6-4.0cm) Ao Root(MM)3.4 (2.0-3.7cm) Aortic Valve AoV Vmax1.2 m/López Peak GR6.2 mmHgLVOT Vmax0.9 m/s AoV VTI0.3 mAo Mean GR3.5 mmHgLVOT VTI0.20 m SANTHOSH (VMAX)5.10 cm2AVA (VTI) 4.9 cm2 Mitral Valve MV E Vmax68.2 cm/sDECEL Ozma667 ms MV A Vmax69.1 cm/sP 1/2 T58 ms E/A ratio1.0MVA (PHT)3.8 cm2 TDI E/E' Medial9.6E/E' Lateral6.9 Medial E' Peak V7.07 cm/sLateral E' Peak V9.85 cm/s Pulmonary Valve PV Vmax0.9 m/sPV VTI0.18 mPV Mean GR1.5 mmHg PV Peak GR2.9 mmHgPI End Brinda. Aba 86.7 cm/s Tricuspid Valve TR Vmax2.4 m/sRAP (EST) 3 jfBuWCLU76.9 mmHg TR Peak GR23.9 mmHg Left Ventricle The left ventricle structure and function is normal. No regional wall motion abnormalities noted. Mil d concentric left ventricular hypertrophy. Left ventricular systolic function is normal, estimated LV EF is 55-60%. The left ventricular diastolic function is normal. Right Ventricle The right ventricle is dilated. The right ventricular systolic function is normal. Atria The left atrium size is normal. The right atrium size is normal. Aortic Valve Aortic valve is trileaflet. Trace aortic regurgitation There is no aortic valvular stenosis. Mitral Valve The mitral valve is normal in structure. Trace mitral regurgitation. There is no mitral valve stenosi s. Tricuspid Valve The tricuspid valve is normal in structure. Trace tricuspid regurgitation. RVSP is 24 mm Hg. Pulmonic Valve Pulmonic valve is not well visualized. Great Vessels The aortic root is normal in size. The IVC is normal in size and collapses >50% with inspiration. Pericardium There is no pericardial effusion. Other Information Quality : Technically difficult due to body habitus Conclusion The right ventricle is dilated. Mild concentric left ventricular hypertrophy. No regional wall motion abnormalities noted. Left ventricular systolic function is normal, estimated LVEF is 55-60%. The left ventricular diastolic function is normal. Trace aortic regurgitation Trace mitral regurgitation. Trace tricuspid regurgitation. PASP is 27 mmHg. There is no pericardial effusion.
[2025-07-04] MEDS: ESTRADIOL 1 GM VG SCH (21:00)
[2025-07-04] MEDS: BUMETANIDE 1 MG TAB PO SCH (21:34)
[2025-07-04] MEDS: MELOXICAM 7.5 MG TABLET PO SCH (21:34)
[2025-07-04] MEDS: RIVAROXABAN 20 MG TABLET PO SCH (21:34)
[2025-07-04] MEDS: LATANOPROST 2.5 ML DROPS OP SCH (22:32)
--- NOTE | 2025-07-04 23:13 | CONS ---
[facility] CONSULTATION NOTE Date Patient Seen: Jul 04, 2025 Time of Visit: 23:07 Supervising Physician: Dr. 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 The time of evaluation patient is on room air, denies any shortness of breath or exertional dyspnea. Patient had extensive conversation with the flu without showing any signs of dyspnea. Breathing is regular rate and unlabored. Reviewing radiology patient does not have any sign of a pulmonary pathology nor signs of infectious process. She denies having ever seen a telecommunications project manager and denies any previous diagnosis of Chronic obstructive pulmonary disease for fibrosis. Patient has refused ABG. Etiology of the patient's episodic shortness of breath appears to be cardiac in origin likely associated with her AFib RVR. Plan Patient was refusing ABG at this time Continue with cardiac workup PAST MEDICAL HX: see above PAST SURGICAL HX: noncontributory SOCIAL HISTORY: No tobacco, ETOH, or illicit drug use Coded Allergies: No Known Drug Allergies (Verified Allergy, 11/28/13) REVIEW OF SYSTEMS: 12 point ROS reviewed with patient. Pertinent positives mentioned above. Otherwise negative. PHYSICAL EXAM: GENERAL: alert, weak, awake oriented x 3 HEENT: EOMI, Sclera non icteric, moist mucosa NECK: Supple, no JVD, trachea midline LUNGS: Clear breath sounds bilaterally. No wheezes HEART: Regular rate and rhythm. Normal S1 and S2, without murmurs ABD: Abdomen soft, nontender. Bowel sounds present EXT: No clubbing cyanosis or edema NEURO: Alert and oriented to person, follows commands Vital Signs (last 8hr) Date Time Temp Pulse Resp B/P (MAP) Pulse Ox O2 Delivery O2 Flow Rate FiO2 07/04/25 20:00 98.1 67 18 124/71 95 Room Air 07/04/25 16:00 97.5 77 18 149/73 96 Room Air LABS: Hematology Labs: Test 07/04/25 03:55 Range/Units White Blood Count 7.5 4.8-10.8 K/uL Red Blood Count 3.31 L 4.00-5.50 MIL/uL Hemoglobin 10.6 L 12.0-16.0 g/dL Hematocrit 32.6 L 36-48 % Mean Corpuscular Volume 98.5 79-99 fL Mean Corpuscular Hemoglobin 32.0 27.0-33.0 pg Mean Corpuscular Hemoglobin Concent 32.5 32.0-36.0 g/dL Red Cell Distribution Width 13.4 11.0-15.5 % Platelet Count 286 130-400 K/uL Mean Platelet Volume 8.7 7.5-10.5 fL Immature Granulocyte % (Auto) 1.9 H 0-1 % Neutrophils (%) (Auto) 49.0 40.0-77.0 % Lymphocytes (%) (Auto) 32.8 21.0-51.0 % Monocytes (%) (Auto) 12.4 3.0-13.0 % Eosinophils (%) (Auto) 3.6 0.0-8.0 % Basophils (%) (Auto) 0.3 0.0-5.0 % Neutrophils # (Auto) 3.7 1.8-7.7 K/uL Lymphocytes # (Auto) 2.5 1.0-4.8 K/uL Monocytes # (Auto) 0.9 0.1-1.0 K/uL Eosinophils # (Auto) 0.27 0.00-0.70 K/uL Basophils # (Auto) 0.02 0.00-0.20 K/uL Absolute Immature Granulocyte (auto 0.14 0-1 K/uL Nucleated Red Blood Cells 0.0 0.0-0.19 % Chemistry Labs: Test 07/04/25 03:55 07/03/25 16:36 Range/Units Sodium Level 138 136-145 mmol/L Potassium Level 4.0 3.5-5.1 mmol/L Chloride Level 103 101-111 mmol/L Carbon Dioxide Level 31 21-32 mmol/L Blood Urea Nitrogen 21 H 7-18 mg/dL Creatinine 0.7 0.5-1.0 mg/dL Glomerular Filtration Rate Calc 93 >90 mL/min Random Glucose 96 70-105 mg/dL Total Calcium 9.0 8.5-10.1 mg/dL Phosphorus Level 3.8 2.5-4.9 mg/dL Magnesium Level 1.90 1.80-2.40 mg/dL Ferritin 94 15-150 ng/mL Hemoglobin A1c 5.3 4.0-6.0 % Estimated Average Glucose (eAG) 105 70-126 mg/dL Total Bilirubin 0.4 0.2-1.0 mg/dL Direct Bilirubin 0.1 0.0-0.3 mg/dL Aspartate Amino Transf (AST/SGOT) 15 10-37 U/L Alanine Aminotransferase (ALT/SGPT) 27 12-78 U/L Alkaline Phosphatase 69 50-136 U/L Troponin I High Sensitivity 8 4-50 ng/L B-Type Natriuretic Peptide 70 0-100 pg/mL Total Protein 6.5 6.0-8.3 g/dL Albumin 3.1 L 3.5-5.0 g/dL Coagulation Labs: Test 07/03/25 16:36 Range/Units Prothrombin Time 11.0 9.6-11.6 SEC Prothromb Time International Ratio 1.04 0.85-1.15 Activated Partial Thromboplast Time 29.1 26.3-35.5 SEC D-Dimer Quantitative (PE/DVT) 219 0-500 ng/mL DIAGNOSTICS / RADIOLOGY RESULTS: [ ] PLAN NEURO: Minimize central acting medications as possible. Maintain fall precautions, adequate lighting during the day PULMONARY: Supplemental 02 as needed. Maintain aspiration precautions at all times CARDIOVASCULAR: Follow hemodynamics. Vital signs per facility protocol GI & NUTRITION: Continue with nutritional support. Continue stool softeners and laxatives as needed. KIDNEYS & ELECTROLYTES: Strict monitoring of intake, output and overall fluid balance. Avoid nephrotoxic medications to the extent possible. Medications to be dosed according to renal function. Monitor electrolytes and replace as needed ENDOCRINE: Maintain blood glucose between 100-180 at all times. Hypoglycemia protocol in place INFECTIOUS DISEASE: Trend temperature, WBC and procalcitonin level Follow cultures, deescalate antibiotics as soon as possible. Panculture if new onset fever ONCOLOGY/HEMATOLOGY/COAGULATION: Monitor for s/s of bleeding Monitor hemoglobin, coagulation studies as needed SKIN: Pressure ulcer prevention per facility protocol Specialty mattress ORTHO/REHAB: Continue PT/OT Prophylaxis: Continue GI and DVT prophylaxis Code Status: Full Resuscitation Disposition: TBD Other: Total patient care time exceeds 35 minutes excluding all procedures. CHRIS JEROME Jul 04, 2025 23:13
[2025-07-05] VITALS (8 sets, daily range): BP systolic 107–143; BP diastolic 49–75; PULSE 84–93; RESP 17–20; TEMP 97.7–98.2; O2SAT 94–100
[2025-07-05 07:35] LABS: NUCLEATED RED BLOOD CELLS 0.0 % (0.0-0.19); PLATELET COUNT (AUTO) 264.0 K/uL (130-400); RED BLOOD CELL COUNT(AUTO) 3.62 MIL/uL (4.00-5.50); RED CELL DISTRIBUTION WIDTH 13.1 % (11.0-15.5); WHITE BLOOD COUNT (AUTO) 6.8 K/uL (4.8-10.8)
[2025-07-05 07:50] LABS: ASPARTATE AMINOTRANSFERASE 16.0 U/L (10-37); CREATININE 0.7 mg/dL (0.5-1.0); GLOMERULAR FILTR. RATE CALC 93.0 mL/min (>90); GLUCOSE,RANDOM 99.0 mg/dL (70-105); SODIUM SERUM 139.0 mmol/L (136-145); TOTAL PROTEIN, SERUM 6.1 g/dL (6.0-8.3); UREA NITROGEN, BLOOD 15.0 mg/dL (7-18)
[2025-07-05 07:53] LABS: % IRON SATURATION 21.1 % (22-44); IRON, SERUM 71.0 mcg/dL (50-170)
[2025-07-05] MEDS: SPIRONOLACTONE 25 MG TAB PO SCH (09:45)
[2025-07-05] MEDS: LISINOPRIL 20 MG TABLET PO SCH (09:45)
--- NOTE | 2025-07-05 11:37 | PN ---
[facility] CARDIOLOGY PROGRESS NOTE Cardiology progress note dictated for Cari Aguayo MD Date Patient Seen: Jul 05, 2025 Interval History: CERVANTES has improved, lung sounds are clear upon auscultation. She admits to lightheadedness upon standing. Orthostatic vital signs: Supine: 126/71mmHg, hr 91bpm. Sittin/69mmHg, hr 87bpm. Standin/53mmHg, hr 105bpm. 18 point drop. Negative for influenza A/B and COVID Physical Examination: GENERAL: No acute distress. HEAD: Normal with no signs of head trauma. EYES: PERRLA, EOMI, conjunctiva and sclera normal. NECK: Supple without JVD. There is no tenderness, lymphadenopathy, or masses. No thyromegaly. Normal carotid upstrokes without bruits. LUNGS: Clear breath sounds bilaterally. No wheezes, or rhonchi. HEART: Normal rate and rhythm. Normal S1 and S2 without murmurs, gallop or rub. VASC: Peripheral pulses +2 bilaterally. EXT: No clubbing, cyanosis or edema. NEURO: Awake, alert, and oriented x3. No focal neurological deficits noted. Laboratory: Hematology Labs: Test 07/05/25 07:25 07/04/25 03:55 Range/Units White Blood Count 6.8 4.8-10.8 K/uL Red Blood Count 3.62 L 4.00-5.50 MIL/uL Hemoglobin 11.2 L 12.0-16.0 g/dL Hematocrit 35.4 L 36-48 % Mean Corpuscular Volume 97.8 79-99 fL Mean Corpuscular Hemoglobin 30.9 27.0-33.0 pg Mean Corpuscular Hemoglobin Concent 31.6 L 32.0-36.0 g/dL Red Cell Distribution Width 13.1 11.0-15.5 % Platelet Count 264 130-400 K/uL Mean Platelet Volume 8.3 7.5-10.5 fL Nucleated Red Blood Cells 0.0 0.0-0.19 % Immature Granulocyte % (Auto) 1.9 H 0-1 % Neutrophils (%) (Auto) 49.0 40.0-77.0 % Lymphocytes (%) (Auto) 32.8 21.0-51.0 % Monocytes (%) (Auto) 12.4 3.0-13.0 % Eosinophils (%) (Auto) 3.6 0.0-8.0 % Basophils (%) (Auto) 0.3 0.0-5.0 % Neutrophils # (Auto) 3.7 1.8-7.7 K/uL Lymphocytes # (Auto) 2.5 1.0-4.8 K/uL Monocytes # (Auto) 0.9 0.1-1.0 K/uL Eosinophils # (Auto) 0.27 0.00-0.70 K/uL Basophils # (Auto) 0.02 0.00-0.20 K/uL Absolute Immature Granulocyte (auto 0.14 0-1 K/uL Chemistry Labs: Test 07/05/25 07:25 07/04/25 03:55 07/03/25 16:36 Range/Units Sodium Level 139 136-145 mmol/L Potassium Level 3.7 3.5-5.1 mmol/L Chloride Level 102 101-111 mmol/L Carbon Dioxide Level 31 21-32 mmol/L Blood Urea Nitrogen 15 7-18 mg/dL Creatinine 0.7 0.5-1.0 mg/dL Glomerular Filtration Rate Calc 93 >90 mL/min Random Glucose 99 70-105 mg/dL Total Calcium 9.4 8.5-10.1 mg/dL Iron Level 71 50-170 mcg/dL Total Iron Binding Capacity 336 250-450 mcg/dL Percent Iron Saturation 21.1 L 22-44 % Total Bilirubin 0.8 0.2-1.0 mg/dL Aspartate Amino Transf (AST/SGOT) 16 10-37 U/L Alanine Aminotransferase (ALT/SGPT) 16 12-78 U/L Alkaline Phosphatase 59 50-136 U/L Total Protein 6.1 6.0-8.3 g/dL Albumin 2.9 L 3.5-5.0 g/dL Phosphorus Level 3.8 2.5-4.9 mg/dL Magnesium Level 1.90 1.80-2.40 mg/dL Ferritin 94 15-150 ng/mL Hemoglobin A1c 5.3 4.0-6.0 % Estimated Average Glucose (eAG) 105 70-126 mg/dL Direct Bilirubin 0.1 0.0-0.3 mg/dL Troponin I High Sensitivity 8 4-50 ng/L B-Type Natriuretic Peptide 70 0-100 pg/mL Coagulation Labs: Test 07/03/25 16:36 Range/Units Prothrombin Time 11.0 9.6-11.6 SEC Prothromb Time International Ratio 1.04 0.85-1.15 Activated Partial Thromboplast Time 29.1 26.3-35.5 SEC D-Dimer Quantitative (PE/DVT) 219 0-500 ng/mL Diagnostics / Radiology: Assessment: -CERVANTES -Paroxysmal atrial fibrillation with RVR -h/o right popliteal vein thrombus and extensive bilateral PE (R>L) in 08/2024, with CTA negative for PE on 07/03/2025 and venous Doppler negative for DVT on 07/04/2025 -Normal LV systolic function (LVEF: 55-60% by echo done 07/04/2025) -HTN -OA -Morbid obesity Plan: 1. CERVANTES -BNP: 69 -CTA 07/03/2025: Negative for PE or acute pulmonary process. -2D echocardiogram 07/04/2025: Mild concentric LVH with no regional wall motion abnormalities. LV systolic function is normal with an estimated LVEF of 55-60%. RVD. Trace AR, MR, TR. PASP is 27 mmHg. No pericardial effusion. -The etiology behind the patient's symptoms is unknown, but thus far residual/recurrent PE, a volume overloaded state, systolic dysfunction, or structural heart disease has been ruled out. -Remaining differentials include an underlying infectious process, a rapid increase in body mass (40 lb weight gain in 1 month), or symptomatic atrial fibrillation with RVR. -Remain on continuous telemetry monitoring. -Orthostatic vital signs with an 18 point drip, will discontinue Bumex 2. Paroxysmal atrial fibrillation with RVR -Substrate: Dilated atria -ECG 07/03/2025: Atrial fibrillation, HR: 103 bpm -Bedside telemetry: Sinus rhythm with episodes of paroxysmal atrial fibrillation with RVR and SVT with HR ranging between 160-170's -Continue recently increased Diltiazem ER to 180 mg daily. Rate control therapy should be titrated in order to achieve a HR goal of less than 110 bpm with physical activity and less than 100 bpm while at rest. -CHADS2 VASc score: 5 points. Continue Xarelto 20 mg daily. -Please keep the patient on continuous telemetry monitoring and maintain electrolytes within normal parameters. DANIELA ADAM MOTION STUDY ENGINEER Jul 05, 2025 11:37
--- NOTE | 2025-07-05 11:59 | NUR ---
Orthostatic BP Supine 126/71 P: 91, Sitting 129/69 P: 87, Standing 108/53 P: 105
[2025-07-05] MEDS ORDERED: COMPOUND IV REFRIGERATED 1 EACH IVSOLN MISC PRN (13:00)
[2025-07-05] MEDS ORDERED: COMPOUND IV MISC 1 EACH IVSOLN MISC PRN (13:00)
--- NOTE | 2025-07-05 14:05 | NUR ---
Unable to perform 6 min walk, patient tolerated 3 min and became tired and week. Addendum: 07/05/25 at 1408 by SANDRA CEDILLO Amended: Links added.
--- NOTE | 2025-07-05 15:26 | PN ---
[facility] PROGRESS NOTE Date of Service: Jul 05, 2025 Time of Service: 15:25 SUBJECTIVE: Patient is a 69-year-old female with past medical history of hypertension, osteoporosis of both knee and atrial fibrillation for which she is on Xarelto. The patient came to the ER with complain of shortness of breaths since 1 week and has progressed since then such that the patient has shortness of breath even when she goes to the washroom. The patient complains of no chest pain, dizziness, vertigo, and syncope. The patient stated that she started taking [id number]-[id number] drug called ArtiKing for the past 2 months after her friend recommended it for her knee pain and it got better. On Monday the patient went to her PCP for her regular appointment in which she discussed the [id number] medication with the doctor and the doctor recommended her to follow up with the orthopedic due to potential side effects of the drug and advised to stop the medication, which the patient did. On the patient was treated her orthopedic and discussed the medication. The orthopedic told her to stop the medication as it contained steroids and advised the patient to go to the ER for shortness of breaths and tapering off the medication. The patient has a history of sleep apnea for which she used to use CPAP but according to the patient she has not used that in years. She has gained 40 lb in 1 month. On admission, blood pressure was 114/69, pulse rate 104, respiratory rate 22 and oxygen saturation 96% on room air. EKG was done that showed atrial fibrillation with rapid ventricular response. Her BNP was 70, D-dimer 219, troponin 8, and HGB A1c 5.3. Chest x-ray was nonsignificant for any cardiopulmonary pathology. Chest x-ray showed no pulmonary embolism but but suggested pulmonary artery hypertension for which echo was recommended. 07/04/2025: The patient is alert, awake, and oriented. She is complaining of shortness of breaths while going to the restroom but no chest pain. Today the patient is rhythm was sinus with pulse rate of 78. Cardiology and pulmonology were consulted for shortness of breaths and atrial fibrillation. The patient also complained of bilateral lower extremity edema for which she was switched from Lasix to Bumex. Due to her use of cabv-ivi-utsvgoh medication that contains dexamethasone, cortisol a.m. levels were ordered. Due to patient's shortness of breath, ABGs were ordered but the patient refused ABGs. 07/05/2025: Patient is awake, alert, and oriented. The patient is not complaining of shortness of breaths and she says it is better than yesterday. Today the patient is rhythm was AFib 108. Pulmonology saw the patient yesterday and commented that the shortness of breath was cardiac in origin. Cardiology stopped metoprolol and increased the dose of diltiazem. The patient had a 6 minute walk today and was able to walk only 3 minutes with no shortness a breath and stopped after 3 minutes due to pain in her knees. Orthostatic hypotension test was done that showed a significant drop in blood pressure therefore Cardiology stopped patient's Bumex. REVIEW OF SYSTEMS CONSTITUTIONAL: Denies fevers, chills, or night sweats. No unintentional weight loss reported. Osteoarthritis of both knees NEUROLOGICAL: Denies headache, amaurosis fugax, motor weakness, sensory deficit, vertigo/spinning sensation, gait abnormalities, or tremors. ENT: No hearing loss, otalgia, otorrhea, rhinitis, rhinorrhea, hoarseness, or sore throat. CARDIOVASCULAR: Denies any exertional angina, dyspnea on exertion, orthopnea, paroxysmal nocturnal dyspnea, palpitations, life-threatening arrhythmias, claudication. PULMONARY: Shortness of breaths on doing minimal exertion SLEEP: History of sleep apnea for which he used CPAP many years ago GASTROINTESTINAL: Denies any type of dysphagia to either liquids or solids. Denies nausea, vomiting, pyrosis, early satiety, abdominal pain, diarrhea, co nstipation, or changes in stool consistency or caliber. Denies coffee-ground emesis, hematemesis, hematochezia, or melanotic stools. GENITOURINARY: Denies frequency, urgency, nocturia, hematuria or incontinence (Storage/Irritative symptoms.) Low urinary stream, straining to void, urinary intermittency or hesitancy, splitting of the voiding stream, terminal dribbling. ENDOCRINOLOGIC: Denies polyuria, polydipsia, polyphagia or heat/cold intolerances. PHYSICAL EXAM GENERAL APPEARANCE: The patient is awake, alert, and oriented. Obese NEUROLOGICAL: Cranial nerves II-XII grossly intact. Motor is 5/5 in bilateral upper and lower extremities proximal to distal. No sensory deficits. HEENT: Face is symmetric. Pupils are equal and reactive. Extraocular movements are intact. NECK: Supple. No JVD. No thyromegaly. No submental, submandibular, pre- /postauricular, occipital or supraclavicular lymphadenopathy. CHEST: Normal chest expansion. No Telemetry. LUNGS: Absence of any rales, rhonchi or any wheezing. CARDIOVASCULAR: Regular. S1 and S2 normal. No appreciable rubs, murmurs or gallops. ABDOMEN: Soft, nontender, and nondistended. There is no rebound, voluntary guarding, or rigidity. : Deferred. No Wilson. EXTREMITIES: Improving Bilateral Lower extremity pitting edema SKIN: No skin breakdown. Vital Signs (last 8hr) Date Time Temp Pulse Resp B/P (MAP) Pulse Ox O2 Delivery O2 Flow Rate FiO2 07/05/25 13:56 93 20 21 92 20 21 07/05/25 12:00 98.1 89 18 115/68 95 Room Air 07/05/25 08:00 95 Room Air* 0 21 07/05/25 08:00 98.2 86 17 143/75 95 Room Air LABS: Laboratory: Test 07/05/25 07:25 07/04/25 13:30 07/04/25 03:55 07/03/25 20:10 Range/Units White Blood Count 6.8 4.8-10.8 K/uL Red Blood Count 3.62 L 4.00-5.50 MIL/uL Hemoglobin 11.2 L 12.0-16.0 g/dL Hematocrit 35.4 L 36-48 % Mean Corpuscular Volume 97.8 79-99 fL Mean Corpuscular Hemoglobin 30.9 27.0-33.0 pg Mean Corpuscular Hemoglobin Concent 31.6 L 32.0-36.0 g/dL Red Cell Distribution Width 13.1 11.0-15.5 % Platelet Count 264 130-400 K/uL Mean Platelet Volume 8.3 7.5-10.5 fL Nucleated Red Blood Cells 0.0 0.0-0.19 % Sodium Level 139 136-145 mmol/L Potassium Level 3.7 3.5-5.1 mmol/L Chloride Level 102 101-111 mmol/L Carbon Dioxide Level 31 21-32 mmol/L Blood Urea Nitrogen 15 7-18 mg/dL Creatinine 0.7 0.5-1.0 mg/dL Glomerular Filtration Rate Calc 93 >90 mL/min Random Glucose 99 70-105 mg/dL Total Calcium 9.4 8.5-10.1 mg/dL Iron Level 71 50-170 mcg/dL Total Iron Binding Capacity 336 250-450 mcg/dL Percent Iron Saturation 21.1 L 22-44 % Total Bilirubin 0.8 0.2-1.0 mg/dL Aspartate Amino Transf (AST/SGOT) 16 10-37 U/L Alanine Aminotransferase (ALT/SGPT) 16 12-78 U/L Alkaline Phosphatase 59 50-136 U/L Total Protein 6.1 6.0-8.3 g/dL Albumin 2.9 L 3.5-5.0 g/dL Influenza Type A Antigen Negative For Type A NEGATIVE Influenza Type B Antigen Negative For Type B NEGATIVE SARS-CoV-2 Antigen (Rapid) PRESUMPTIVE NEGATIVE NEGATIVE Immature Granulocyte % (Auto) 1.9 H 0-1 % Neutrophils (%) (Auto) 49.0 40.0-77.0 % Lymphocytes (%) (Auto) 32.8 21.0-51.0 % Monocytes (%) (Auto) 12.4 3.0-13.0 % Eosinophils (%) (Auto) 3.6 0.0-8.0 % Basophils (%) (Auto) 0.3 0.0-5.0 % Neutrophils # (Auto) 3.7 1.8-7.7 K/uL Lymphocytes # (Auto) 2.5 1.0-4.8 K/uL Monocytes # (Auto) 0.9 0.1-1.0 K/uL Eosinophils # (Auto) 0.27 0.00-0.70 K/uL Basophils # (Auto) 0.02 0.00-0.20 K/uL Absolute Immature Granulocyte (auto 0.14 0-1 K/uL Phosphorus Level 3.8 2.5-4.9 mg/dL Magnesium Level 1.90 1.80-2.40 mg/dL Ferritin 94 15-150 ng/mL Urine Color YELLOW YELLOW Urine Appearance CLEAR CLEAR Urine pH 6.0 5.0-8.0 Urine Specific [place] OVER 1.001-1.031 Urine Protein NEGATIVE NEGATIVE mg/dL Urine Glucose (UA) NEGATIVE NEGATIVE mg/dL Urine Ketones NEGATIVE NEGATIVE mg/dL Urine Occult Blood NEGATIVE NEGATIVE Urine Nitrate NEGATIVE NEGATIVE Urine Bilirubin NEGATIVE NEGATIVE mg/dL Urine Urobilinogen 2.0 H 0.2-1.0 mg/dL Urine Leukocyte Esterase NEGATIVE NEGATIVE Tim/uL Urine RBC 2-5 H 0-1 /HPF Urine WBC 2-5 H 0-1 /HPF Urine Squamous Epithelial Cells FEW 0-2 /HPF Urine Bacteria RARE None Seen /HPF Test 07/03/25 16:36 Range/Units Prothrombin Time 11.0 9.6-11.6 SEC Prothromb Time International Ratio 1.04 0.85-1.15 Activated Partial Thromboplast Time 29.1 26.3-35.5 SEC D-Dimer Quantitative (PE/DVT) 219 0-500 ng/mL Hemoglobin A1c 5.3 4.0-6.0 % Estimated Average Glucose (eAG) 105 70-126 mg/dL Direct Bilirubin 0.1 0.0-0.3 mg/dL Troponin I High Sensitivity 8 4-50 ng/L B-Type Natriuretic Peptide 70 0-100 pg/mL Current Medications Medications (Trade) Dose Ordered Sig/Cory Route PRN Reason Start Time Stop Time Status Last Admin Dose Admin Acetaminophen (TYLenol 325MG TAB) 650 mg Q6H PRN PO TEMPERATURE GREATER THAN 101.5 07/03/25 18:30 08/02/25 18:29 Apixaban (EliquIS) 5 mg BID PO 07/03/25 21:00 07/04/25 09:15 DC 07/04/25 08:49 5 MG Bumetanide (Bumex 1mg Tab) 1 mg BID PO 07/04/25 21:00 07/05/25 13:00 DC 07/05/25 09:45 1 MG Diltiazem HCl (CARDIzem 120MG CD) 120 mg DAILY PO 07/05/25 09:00 07/04/25 15:24 DC Diltiazem HCl (CARDIzem 180MG CD) 180 mg DAILY PO 07/05/25 09:00 08/04/25 08:59 07/05/25 09:45 180 MG Famotidine (Pepcid 20mg Tab) 20 mg DAILY PO 07/04/25 09:00 08/03/25 08:59 07/05/25 09:45 20 MG Furosemide (LASix 20MG TAB) 20 mg BID@09,17 PO 07/04/25 09:00 07/04/25 11:00 DC 07/04/25 08:51 20 MG Home Med (Home Medication) (Estradiol (Estrace) 1 GM) HS VG 07/04/25 21:00 08/03/25 20:59 Hydralazine HCl (APRESOLine 20MG INJ) 10 mg Q6H PRN IV For:SBP above 160;DBP above 90 07/03/25 18:30 08/02/25 18:29 Hydrochlorothiazide (hydroCHLOROthiazide 25MG) 12.5 mg DAILY PO 07/05/25 09:00 08/04/25 08:59 07/05/25 09:45 12.5 MG Insulin Human Regular (humuLIN R 100 UNIT/ML 3ML) INSULIN SLIDING SCAL... ACHS SQ 07/03/25 21:00 08/02/25 20:59 Lactulose (Constulose 20gm/ 30ml Udcup) 20 gm BID PRN PO CONSTIPATION 07/03/25 18:30 08/02/25 18:29 Latanoprost (Xalatan) 1 DROP HS OP 07/04/25 21:00 08/03/25 20:59 07/04/25 22:32 2 DROP Lisinopril (Prinivil 20mg) 20 mg DAILY PO 07/05/25 09:00 08/04/25 08:59 07/05/25 09:45 20 MG Magnesium Sulfate 50 ml @ 0 mls/hr PROTOCOL PRN IV MAGNESIUM PROTOCOL 07/04/25 15:00 08/03/25 14:59 Meloxicam (Mobic 7.5mg) 15 mg HS PO 07/04/25 21:00 08/03/25 20:59 07/04/25 21:34 15 MG Metoprolol Tartrate (loprESSOR) 5 mg Q5MIN PRN IV AFIB RVR HEART RATE > 120 BPM 07/03/25 18:30 07/04/25 06:49 5 MG Metoprolol Tartrate (loprESSOR) 12.5 mg BID PO 07/03/25 21:00 07/04/25 13:36 DC 07/04/25 08:49 12.5 MG Montelukast Sodium (SinguLAIR) 10 mg HS PO 07/04/25 21:00 08/03/25 20:59 07/04/25 21:34 10 MG Morphine Sulfate (morPHINE 2MG SYG) 2 mg Q4H PRN IVP SEVERE PAIN (7-10) 07/03/25 18:30 07/10/25 18:29 Ondansetron HCl (zoFRAN 4MG INJ) 4 mg Q6H PRN IV NAUSEA/VOMITING 07/03/25 18:30 08/02/25 18:29 Pharmacy Profile Note (Pharmacy Communication) 1 each ONCE MISC 07/03/25 18:30 07/03/25 18:24 DC Potassium Chloride 100 ml @ 100 mls/hr AD PRN IV POTASSIUM PROTOCOL 07/04/25 15:00 08/03/25 14:59 Potassium Chloride (K-Dur/Klor-Con 20meq) 20 meq AD PRN PO POTASSIUM PROTOCOL 07/04/25 15:00 08/03/25 14:59 Potassium Chloride (KCl 10% Elixir 20meq/15ml) 20 meq AD PRN PO POTASSIUM PROTOCOL 07/04/25 15:00 08/03/25 14:59 Rivaroxaban (Xarelto) 20 mg DAILY PO 07/04/25 21:00 08/03/25 20:59 07/05/25 09:45 20 MG Spironolactone (Aldactone 25mg) 25 mg DAILY PO 07/05/25 09:00 08/04/25 08:59 07/05/25 09:45 25 MG DIAGNOSTICS / RADIOLOGY: PATIENT: CARRIE LEMUS MR#: [id number] : 1955 SEX: F AGE: 69 LOCATION: [facility] ORDER 0 STATUS: ADM IN REPORT#: [id number] SERVICE 9 REASON: Shortness of breath ORDERING PHYSICIAN: YAJAIRA SCHOFIELD MD PROCEDURE: ECHO CMP - ECHO 2-D COMPLETE APPROVED REPORT EXAM: Two-dimensional and M-mode echocardiogram with Doppler and color Doppler. INDICATION ICD: Shortness of breath R06.02 2D Dimensions RVDd 4.7 cm LVEF(%) 29.4 (>50%) LVED Vol(simp.) 157.0 mL IVSd 0.7 (0.7-1.1cm) FS(%) 14 % LVES Vol(simp.) 64.0 mL LVDd 5.8 (3.8-5.6cm) LA (2D) 4.6 (1.6-4.0cm) LVEF(%, simp.) 59 % PWd 1.2 (0.7-1.1cm) Ao Root(2D) 3.9 (2.0-3.7cm) LA ESV INDEX (BP) 30.30 mL/m2 IVSs 1.2 cm LVOT diam 2.9 (1.8-2.4cm) LVDs 5.0 (2.5-4.0cm) IVC diam 1.5 cm PWs 0.9 cm Deformation Strain Apical 4 -18.9 % Apical 2 -16.5 % Apical 3 -21.8 % Global Strain -19.1 % M-Mode Dimensions EPSS 1.5 cm LA (MM) 5.3 (1.6-4.0cm) Ao Root(MM) 3.4 (2.0-3.7cm) Aortic Valve AoV Vmax 1.2 m/s Ao Peak GR 6.2 mmHg LVOT Vmax 0.9 m/s AoV VTI 0.3 m Ao Mean GR 3.5 mmHg LVOT VTI 0.20 m SANTHOSH (VMAX) 5.10 cm2 SANTHOSH (VTI) 4.9 cm2 Mitral Valve MV E Vmax 68.2 cm/s DECEL Time 247 ms MV A Vmax 69.1 cm/s P 1/2 T 58 ms E/A ratio 1.0 MVA (PHT) 3.8 cm2 TDI E/E' Medial 9.6 E/E' Lateral 6.9 Medial E' Peak V 7.07 cm/s Lateral E' Peak V 9.85 cm/s Pulmonary Valve PV Vmax 0.9 m/s PV VTI 0.18 m PV Mean GR 1.5 mmHg PV Peak GR 2.9 mmHg PI End Brinda. Aba 86.7 cm/s Tricuspid Valve TR Vmax 2.4 m/s RAP (EST) 3 mmHg RVSP 26.9 mmHg TR Peak GR 23.9 mmHg Left Ventricle The left ventricle structure and function is normal. No regional wall motion abnormalities noted. Mild concentric left ventricular hypertrophy. Left ventricular systolic function is normal, estimated LVEF is 55-60%. The left ventricular diastolic function is normal. Right Ventricle The right ventricle is dilated. The right ventricular systolic function is normal. Atria The left atrium size is normal. The right atrium size is normal. Aortic Valve Aortic valve is trileaflet. Trace aortic regurgitation There is no aortic valvular stenosis. Mitral Valve The mitral valve is normal in structure. Trace mitral regurgitation. There is no mitral valve stenosis. Tricuspid Valve The tricuspid valve is normal in structure. Trace tricuspid regurgitation. RVSP is 24 mm Hg. Pulmonic Valve Pulmonic valve is not well visualized. Great Vessels The aortic root is normal in size. The IVC is normal in size and collapses >50% with inspiration. Pericardium There is no pericardial effusion. Other Information Quality : Technically difficult due to body habitus Conclusion The right ventricle is dilated. Mild concentric left ventricular hypertrophy. No regional wall motion abnormalities noted. Left ventricular systolic function is normal, estimated LVEF is 55-60%. The left ventricular diastolic function is normal. Trace aortic regurgitation Trace mitral regurgitation. Trace tricuspid regurgitation. PASP is 27 mmHg. There is no pericardial effusion. DICTATED BY: RICHELLE WORLEY MD DATE: 07/04/25 1040 ELECTRONICALLY SIGNED BY: RICHELLE WORLEY MD DATE: 07/04/25 1505 ASSESSMENT: AFib with a RVR, POA Shortness of Breath possibly due to poly pharmacy use, POA Anemia Sleep Apnea Hypertension Osteoarthritis BMI 47.1 PLAN: AFib with a RVR, POA Monitor rhythm Keep on telemetry Lehman increased the dose of diltiazem, stopped patient's metoprolol and ordered to continue Xarelto 20 mg As per cardiology, her bedside telemetry showed Sinus rhythm with episodes of paroxysmal atrial fibrillation with RVR and SVT with HR ranging between 160-170's To the edge setter's evaluation at ordered to Continue recently increased Diltiazem ER to 180 mg daily. Rate control therapy should be titrated in order to achieve a HR goal of less than 110 bpm with physical activity and less than 100 bpm while at rest. Keep the patient on continuous telemetry monitoring and maintain electrolytes within normal parameter Shortness of Breath due to possible poly pharmacy use, Chest x-ray negative CT chest negative for pulmonary embolism. Possible pulmonary artery hypertension. Echocardiographically showed right ventricular dilation and LVEF of 55-60%. Ordered cortisol a.m. to measure cortisol levels after ArtiKing use. As per the 6 minute walk test, the patient was able to walk3 minutes without shortness of breaths but got tired Pulmonology stated that shortness of breath appears to be cardiac in origin likely associated with her AFib RVR. Ordered ABG. Patient refused ABGs Order urine protein creatinine ratio Ultrasound Doppler lower extremity negative for VTE. Orthostatic hypotension test showed blood pressure 129/69 on sitting and 108/53 on standing Due to significant drop in blood pressure, cardiology stopped patient's Bumex Anemia Hemoglobin 10.6 Iron panel ordered Ferritin is 93 % saturation 21.1 Transfuse 1 unit of iron sucrose PHYSICIAN STATEMENT I was present with the resident during the History and Physical exam and I have reviewed the resident's note. This case was discussed with the resident and I agree with the history, physical exam and medical decision making as documented. Additions/exceptions/observations were directly added to the notes. Andrzej Tavares MD, SYED M MD Jul 05, 2025 15:26
--- NOTE | 2025-07-05 18:23 | NUR ---
D/C PLAN CM spoke to patient regarding d/c planning. Patient lives with spouse. Denies having any home services. Reports she has a walker, cane, and nebulizer at home. CM discussed fatigue during ambulation for home o2 eval. States she feels safe to return home and declined short term rehab placement. Plan for now is to return to same setting. No needs verbalized. CM to f/u. Addendum: 07/05/25 at 1825 by DELIA KEYS CM Amended: Links added.
[2025-07-05] MEDS: PoTASSium chloRIDE 20MEQ ER 20 MEQ ERTAB PO PRN (19:55)
--- NOTE | 2025-07-05 21:33 | PN ---
[facility] PROGRESS NOTE Date Patient Seen: Jul 05, 2025 Time of Visit: 21:32 Supervising Physician: Dr. Hairston PROBLEM LIST: Atrial fibrillation on dual anticoagulation with Xarelto and aspirin Hypertension Osteoarthritis INTERVAL HISTORY: Patient was evaluated at bedside today, she remains on room air at this time, she denies any respiratory distress or shortness of breath. Patient's respirations are regular and unlabored. She is clear to auscultation. Patient refused ABG as she states the blood draws painful. At this time pulmonary Services will sign off the case, there were no further recommendations, re commend to continue with cardiac workup and atrial fibrillation treatment for resolution of patient's episodic shortness of breath earlier in the admission. REVIEW OF SYSTEMS: 12 point ROS reviewed with patient. Pertinent positives mentioned above. Otherwise negative. PHYSICAL EXAM: GENERAL: alert, weak, awake oriented x 3 HEENT: EOMI, Sclera non icteric, moist mucosa NECK: Supple, no JVD, trachea midline LUNGS: Clear breath sounds bilaterally. No wheezes HEART: Regular rate and rhythm. Normal S1 and S2, without murmurs ABD: Abdomen soft, nontender. Bowel sounds present EXT: No clubbing cyanosis or edema NEURO: Alert and oriented to person, follows commands Vital Signs (last 8hr) Date Time Temp Pulse Resp B/P (MAP) Pulse Ox O2 Delivery O2 Flow Rate FiO2 07/05/25 20:00 97.7 84 20 107/49 95 Room Air 07/05/25 19:15 95 Room Air* 0 21 07/05/25 16:00 98.1 85 17 110/68 94 Room Air 07/05/25 13:56 93 20 21 92 20 21 LABS: Hematology Labs: Test 07/05/25 07:25 07/04/25 03:55 Range/Units White Blood Count 6.8 4.8-10.8 K/uL Red Blood Count 3.62 L 4.00-5.50 MIL/uL Hemoglobin 11.2 L 12.0-16.0 g/dL Hematocrit 35.4 L 36-48 % Mean Corpuscular Volume 97.8 79-99 fL Mean Corpuscular Hemoglobin 30.9 27.0-33.0 pg Mean Corpuscular Hemoglobin Concent 31.6 L 32.0-36.0 g/dL Red Cell Distribution Width 13.1 11.0-15.5 % Platelet Count 264 130-400 K/uL Mean Platelet Volume 8.3 7.5-10.5 fL Nucleated Red Blood Cells 0.0 0.0-0.19 % Immature Granulocyte % (Auto) 1.9 H 0-1 % Neutrophils (%) (Auto) 49.0 40.0-77.0 % Lymphocytes (%) (Auto) 32.8 21.0-51.0 % Monocytes (%) (Auto) 12.4 3.0-13.0 % Eosinophils (%) (Auto) 3.6 0.0-8.0 % Basophils (%) (Auto) 0.3 0.0-5.0 % Neutrophils # (Auto) 3.7 1.8-7.7 K/uL Lymphocytes # (Auto) 2.5 1.0-4.8 K/uL Monocytes # (Auto) 0.9 0.1-1.0 K/uL Eosinophils # (Auto) 0.27 0.00-0.70 K/uL Basophils # (Auto) 0.02 0.00-0.20 K/uL Absolute Immature Granulocyte (auto 0.14 0-1 K/uL Chemistry Labs: Test 07/05/25 07:25 07/04/25 03:55 Range/Units Sodium Level 139 136-145 mmol/L Potassium Level 3.7 3.5-5.1 mmol/L Chloride Level 102 101-111 mmol/L Carbon Dioxide Level 31 21-32 mmol/L Blood Urea Nitrogen 15 7-18 mg/dL Creatinine 0.7 0.5-1.0 mg/dL Glomerular Filtration Rate Calc 93 >90 mL/min Random Glucose 99 70-105 mg/dL Total Calcium 9.4 8.5-10.1 mg/dL Iron Level 71 50-170 mcg/dL Total Iron Binding Capacity 336 250-450 mcg/dL Percent Iron Saturation 21.1 L 22-44 % Total Bilirubin 0.8 0.2-1.0 mg/dL Aspartate Amino Transf (AST/SGOT) 16 10-37 U/L Alanine Aminotransferase (ALT/SGPT) 16 12-78 U/L Alkaline Phosphatase 59 50-136 U/L Total Protein 6.1 6.0-8.3 g/dL Albumin 2.9 L 3.5-5.0 g/dL Phosphorus Level 3.8 2.5-4.9 mg/dL Magnesium Level 1.90 1.80-2.40 mg/dL Ferritin 94 15-150 ng/mL DIAGNOSTICS / RADIOLOGY RESULTS: [ ] PLAN NEURO: Minimize central acting medications as possible. Maintain fall precautions, adequate lighting during the day PULMONARY: Supplemental 02 as needed. Maintain aspiration precautions at all times CARDIOVASCULAR: Follow hemodynamics. Vital signs per facility protocol GI & NUTRITION: Continue with nutritional support. Continue stool softeners and laxatives as needed. KIDNEYS & ELECTROLYTES: Strict monitoring of intake, output and overall fluid balance. Avoid nephrotoxic medications to the extent possible. Medications to be dosed according to renal function. Monitor electrolytes and replace as needed ENDOCRINE: Maintain blood glucose between 100-180 at all times. Hypoglycemia protocol in place INFECTIOUS DISEASE: Trend temperature, WBC and procalcitonin level Follow cultures, deescalate antibiotics as soon as possible. Panculture if new onset fever ONCOLOGY/HEMATOLOGY/COAGULATION: Monitor for s/s of bleeding Monitor hemoglobin, coagulation studies as needed SKIN: Pressure ulcer prevention per facility protocol Specialty mattress ORTHO/REHAB: Continue PT/OT Prophylaxis: Continue GI and DVT prophylaxis Code Status: Full Resuscitation Disposition: TBD Other: Total patient care time exceeds 35 minutes excluding all procedures. CHRIS JEROME Jul 05, 2025 21:33
[2025-07-06] VITALS (9 sets, daily range): BP systolic 97–121; BP diastolic 45–65; PULSE 74–128; RESP 17–29; TEMP 98–98.5; O2SAT 95
--- NOTE | 2025-07-06 04:02 | NUR ---
nurse note patient alert and oriented times 3. plan of care discussed with her and she verbalized understanding. patient refusing her scd's tonight because she continuously gets up to the restroom. When she goes to the restroom, her heart rate is afib 120's-130's. When she lays back in bed, she drops to afib 90-100. She has had no pain tonight. she has slept about 6 hours tonight. call light within reach, bed alarm on, 2 side rails up. will continue to monitor patient.
[2025-07-06 06:35] LABS: CREATININE 0.7 mg/dL (0.5-1.0); GLOMERULAR FILTR. RATE CALC 93.0 mL/min (>90); GLUCOSE,RANDOM 108.0 mg/dL (70-105); SODIUM SERUM 139.0 mmol/L (136-145); UREA NITROGEN, BLOOD 21.0 mg/dL (7-18)
[2025-07-06] MEDS: MAGNESIUM 2GM PREMIX 50ML 50 ML IV PRN (06:45)
--- NOTE | 2025-07-06 08:14 | EKG ---
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1955 Requested By: BRYAN SANCHEZ Order Number: [id number] Reading MD: Pooja Rushing Measurements Intervals [place] Rate: 79 P: 58 MS: 174 QRS: 23 QRSD: 100 T: 15 QT: 428 QTc: 490 Interpretive Statements Normal sinus rhythm ST & T wave abnormality, consider anterior ischemia Prolonged QT Compared to ECG 07/03/2025 16:36:27 ST (T wave) deviation now present Possible ischemia now present Prolonged QT interval now present Atrial fibrillation no longer present T-wave abnormality no longer present Electronically Signed On 07-07-2025 15:06:53 CDT by Pooja Rushing Please click the below link to view image of tracing.
--- NOTE | 2025-07-06 10:27 | PN ---
[facility] CARDIOLOGY PROGRESS NOTE Cardiology progress note dictated for Cari Aguayo MD Date Patient Seen: Jul 06, 2025 Interval History: She continues to admit having lightheadedness upon standing. Negative for influenza A/B and COVID The patient continues to have intermittent episodes of AFib with RVR heart rates into the 120-130s and SVT with heart rates up to the 170s Physical Examination: GENERAL: No acute distress. HEAD: Normal with no signs of head trauma. EYES: PERRLA, EOMI, conjunctiva and sclera normal. NECK: Supple without JVD. There is no tenderness, lymphadenopathy, or masses. No thyromegaly. Normal carotid upstrokes without bruits. LUNGS: Clear breath sounds bilaterally. No wheezes, or rhonchi. HEART: Normal rate and rhythm. Normal S1 and S2 without murmurs, gallop or rub. VASC: Peripheral pulses +2 bilaterally. EXT: No clubbing or cyanosis. LLE with 1-2+ edema. NEURO: Awake, alert, and oriented x3. No focal neurological deficits noted. Laboratory: Hematology Labs: Test 07/05/25 07:25 Range/Units White Blood Count 6.8 4.8-10.8 K/uL Red Blood Count 3.62 L 4.00-5.50 MIL/uL Hemoglobin 11.2 L 12.0-16.0 g/dL Hematocrit 35.4 L 36-48 % Mean Corpuscular Volume 97.8 79-99 fL Mean Corpuscular Hemoglobin 30.9 27.0-33.0 pg Mean Corpuscular Hemoglobin Concent 31.6 L 32.0-36.0 g/dL Red Cell Distribution Width 13.1 11.0-15.5 % Platelet Count 264 130-400 K/uL Mean Platelet Volume 8.3 7.5-10.5 fL Nucleated Red Blood Cells 0.0 0.0-0.19 % Chemistry Labs: Test 07/06/25 06:16 07/05/25 07:25 Range/Units Sodium Level 139 136-145 mmol/L Potassium Level 4.1 3.5-5.1 mmol/L Chloride Level 102 101-111 mmol/L Carbon Dioxide Level 34 H 21-32 mmol/L Blood Urea Nitrogen 21 H 7-18 mg/dL Creatinine 0.7 0.5-1.0 mg/dL Glomerular Filtration Rate Calc 93 >90 mL/min Random Glucose 108 H 70-105 mg/dL Total Calcium 9.3 8.5-10.1 mg/dL Magnesium Level 1.80 1.80-2.40 mg/dL Iron Level 71 50-170 mcg/dL Total Iron Binding Capacity 336 250-450 mcg/dL Percent Iron Saturation 21.1 L 22-44 % Total Bilirubin 0.8 0.2-1.0 mg/dL Aspartate Amino Transf (AST/SGOT) 16 10-37 U/L Alanine Aminotransferase (ALT/SGPT) 16 12-78 U/L Alkaline Phosphatase 59 50-136 U/L Total Protein 6.1 6.0-8.3 g/dL Albumin 2.9 L 3.5-5.0 g/dL Diagnostics / Radiology: Assessment: -CERVANTES -Paroxysmal atrial fibrillation with RVR -h/o right popliteal vein thrombus and extensive bilateral PE (R>L) in 08/2024, with CTA negative for PE on 07/03/2025 and venous Doppler negative for DVT on 07/04/2025 -Normal LV systolic function (LVEF: 55-60% by echo done 07/04/2025) -HTN -OA -Morbid obesity Plan: 1. CERVANTES -BNP: 70 -CTA 07/03/2025: Negative for PE or acute pulmonary process. -2D echocardiogram 07/04/2025: Mild concentric LVH with no regional wall motion abnormalities. LV systolic function is normal with an estimated LVEF of 55-60%. RVD. Trace AR, MR, TR. PASP is 27 mmHg. No pericardial effusion. -The etiology behind the patient's symptoms is likely symptomatic atrial fibrillation with RVR and SVT. Residual/recurrent PE, a volume overloaded state, systolic dysfunction, or structural heart disease has been ruled out. -Remain on continuous telemetry monitoring. 2. Paroxysmal atrial fibrillation with RVR -Bedside telemetry: Sinus rhythm with short 1-2 minutes episodes of paroxysmal atrial fibrillation with RVR and SVT with HR ranging between 120-170's -Will increase Diltiazem ER to 240 mg daily. -CHADS2 VASc score: 5 points. Continue Xarelto 20 mg daily. -Please keep the patient on continuous telemetry monitoring and maintain electrolytes within normal parameters. DANIELA ADAM INTEGRATION SPECIALIST Jul 06, 2025 10:27
--- NOTE | 2025-07-06 14:52 | PN ---
[facility] PROGRESS NOTE Date of Service: Jul 06, 2025 Time of Service: 14:37 SUBJECTIVE: Patient is a 69-year-old female with past medical history of hypertension, osteoporosis of both knee and atrial fibrillation for which she is on Xarelto. The patient came to the ER with complain of shortness of breaths since 1 week and has progressed since then such that the patient has shortness of breath even when she goes to the washroom. The patient complains of no chest pain, dizziness, vertigo, and syncope. The patient stated that she started taking [id number]-[id number] drug called ArtiKing for the past 2 months after her friend recommended it for her knee pain and it got better. On Monday the patient went to her PCP for her regular appointment in which she discussed the [id number]-[id number] medication with the doctor and the doctor recommended her to follow up with the orthopedic due to potential side effects of the drug and advised to stop the medication, which the patient did. On the patient was treated her orthopedic and discussed the medication. The orthopedic told her to stop the medication as it contained steroids and advised the patient to go to the ER for shortness of breaths and tapering off the medication. The patient has a history of sleep apnea for which she used to use CPAP but according to the patient she has not used that in years. She has gained 40 lb in 1 month. On admission, blood pressure was 114/69, pulse rate 104, respiratory rate 22 and oxygen saturation 96% on room air. EKG was done that showed atrial fibrillation with rapid ventricular response. Her BNP was 70, D-dimer 219, troponin 8, and HGB A1c 5.3. Chest x-ray was nonsignificant for any cardiopulmonary pathology. Chest x-ray showed no pulmonary embolism but but suggested pulmonary artery hypertension for which echo was recommended. 07/04/2025: The patient is alert, awake, and oriented. She is complaining of shortness of breaths while going to the restroom but no chest pain. Today the patient is rhythm was sinus with pulse rate of 78. Cardiology and pulmonology were consulted for shortness of breaths and atrial fibrillation. The patient also complained of bilateral lower extremity edema for which she was switched from Lasix to Bumex. Due to her use of oczq-wjj-uopwuiq medication that contains dexamethasone, cortisol a.m. levels were ordered. Due to patient's shortness of breath, ABGs were ordered but the patient refused ABGs. 07/05/2025: Patient is awake, alert, and oriented. The patient is not complaining of shortness of breaths and she says it is better than yesterday. Today the patient is rhythm was AFib 108. Pulmonology saw the patient yesterday and commented that the shortness of breath was cardiac in origin. Cardiology stopped metoprolol and increased the dose of diltiazem. The patient had a 6 minute walk today and was able to walk only 3 minutes with no shortness a breath and stopped after 3 minutes due to pain in her knees. Orthostatic hypotension test was done that showed a significant drop in blood pressure therefore Cardiology stopped patient's Bumex. 07/06/2025: Patient is alert, awake and oriented. She denies shortness of breath and feels better than yesterday. Nurse informed me that she has AFib 120s when she is active and in 90s when she is resting. Her heart rate is 79 when I saw her. Cardiology consulted her and increase the dose of diltiazem to 240 mg once a day. REVIEW OF SYSTEMS CONSTITUTIONAL: Denies fevers, chills, or night sweats. No unintentional weight loss reported. Osteoarthritis of both knees NEUROLOGICAL: Denies headache, amaurosis fugax, motor weakness, sensory deficit, vertigo/spinning sensation, gait abnormalities, or tremors. ENT: No hearing loss, otalgia, otorrhea, rhinitis, rhinorrhea, hoarseness, or sore throat. CARDIOVASCULAR: Denies any exertional angina, dyspnea on exertion, orthopnea, paroxysmal nocturnal dyspnea, palpitations, life-threatening arrhythmias, claudication. PULMONARY: Shortness of breaths improved SLEEP: History of sleep apnea for which he used CPAP many years ago GASTROINTESTINAL: Denies any type of dysphagia to either liquids or solids. Denies nausea, vomiting, pyrosis, early satiety, abdominal pain, diarrhea, constipation, or changes in stool consistency or caliber. Denies coffee-ground emesis, hematemesis, hematochezia, or melanotic stools. GENITOURINARY: Denies frequency, urgency, nocturia, hematuria or incontinence (Storage/Irritative symptoms.) Low urinary stream, straining to void, urinary intermittency or hesitancy, splitting of the voiding stream, terminal dribbling. ENDOCRINOLOGIC: Denies polyuria, polydipsia, polyphagia or heat/cold intoleran koby. PHYSICAL EXAM GENERAL APPEARANCE: The patient is awake, alert, and oriented. Obese NEUROLOGICAL: Cranial nerves II-XII grossly intact. Motor is 5/5 in bilateral upper and lower extremities proximal to distal. No sensory deficits. HEENT: Face is symmetric. Pupils are equal and reactive. Extraocular movements are intact. NECK: Supple. No JVD. No thyromegaly. No submental, submandibular, pre- /postauricular, occipital or supraclavicular lymphadenopathy. CHEST: Normal chest expansion. No Telemetry. LUNGS: Absence of any rales, rhonchi or any wheezing. CARDIOVASCULAR: Regular. S1 and S2 normal. No appreciable rubs, murmurs or gallops. ABDOMEN: Soft, nontender, and nondistended. There is no rebound, voluntary guarding, or rigidity. : Deferred. No Wilson. EXTREMITIES: Improving Bilateral Lower extremity pitting edema SKIN: No skin breakdown. Vital Signs (last 8hr) Date Time Temp Pulse Resp B/P (MAP) Pulse Ox O2 Delivery O2 Flow Rate FiO2 07/06/25 12:00 98.2 88 18 106/45 93 Room Air 07/06/25 08:00 98.1 112 17 121/65 95 Room Air 07/06/25 07:30 95 Room Air* 0 21 LABS: Laboratory: Test 07/06/25 06:16 07/05/25 07:25 Range/Units Sodium Level 139 136-145 mmol/L Potassium Level 4.1 3.5-5.1 mmol/L Chloride Level 102 101-111 mmol/L Carbon Dioxide Level 34 H 21-32 mmol/L Blood Urea Nitrogen 21 H 7-18 mg/dL Creatinine 0.7 0.5-1.0 mg/dL Glomerular Filtration Rate Calc 93 >90 mL/min Random Glucose 108 H 70-105 mg/dL Total Calcium 9.3 8.5-10.1 mg/dL Magnesium Level 1.80 1.80-2.40 mg/dL Thyroid Stimulating Hormone (TSH) 1.31 # 0.36-3.74 uIU/mL White Blood Count 6.8 4.8-10.8 K/uL Red Blood Count 3.62 L 4.00-5.50 MIL/uL Hemoglobin 11.2 L 12.0-16.0 g/dL Hematocrit 35.4 L 36-48 % Mean Corpuscular Volume 97.8 79-99 fL Mean Corpuscular Hemoglobin 30.9 27.0-33.0 pg Mean Corpuscular Hemoglobin Concent 31.6 L 32.0-36.0 g/dL Red Cell Distribution Width 13.1 11.0-15.5 % Platelet Count 264 130-400 K/uL Mean Platelet Volume 8.3 7.5-10.5 fL Nucleated Red Blood Cells 0.0 0.0-0.19 % Iron Level 71 50-170 mcg/dL Total Iron Binding Capacity 336 250-450 mcg/dL Percent Iron Saturation 21.1 L 22-44 % Total Bilirubin 0.8 0.2-1.0 mg/dL Aspartate Amino Transf (AST/SGOT) 16 10-37 U/L Alanine Aminotransferase (ALT/SGPT) 16 12-78 U/L Alkaline Phosphatase 59 50-136 U/L Total Protein 6.1 6.0-8.3 g/dL Albumin 2.9 L 3.5-5.0 g/dL Current Medications Medications (Trade) Dose Ordered Sig/Cory Route PRN Reason Start Time Stop Time Status Last Admin Dose Admin Acetaminophen (TYLenol 325MG TAB) 650 mg Q6H PRN PO TEMPERATURE GREATER THAN 101.5 07/03/25 18:30 08/02/25 18:29 Apixaban (EliquIS) 5 mg BID PO 07/03/25 21:00 07/04/25 09:15 DC 07/04/25 08:49 5 MG Bumetanide (Bumex 1mg Tab) 1 mg BID PO 07/04/25 21:00 07/05/25 13:00 DC 07/05/25 09:45 1 MG Diltiazem HCl (CARDIzem 120MG CD) 120 mg DAILY PO 07/05/25 09:00 07/04/25 15:24 DC Diltiazem HCl (CARDIzem 120MG CD) 240 mg DAILY PO 07/07/25 09:00 08/06/25 08:59 Diltiazem HCl (CARDIzem 180MG CD) 180 mg DAILY PO 07/05/25 09:00 07/06/25 11:04 DC 07/06/25 08:27 180 MG Famotidine (Pepcid 20mg Tab) 20 mg DAILY PO 07/04/25 09:00 08/03/25 08:59 07/06/25 08:28 20 MG Furosemide (LASix 20MG TAB) 20 mg BID@09,17 PO 07/04/25 09:00 07/04/25 11:00 DC 07/04/25 08:51 20 MG Home Med (Home Medication) (Estradiol (Estrace) 1 GM) HS VG 07/04/25 21:00 08/03/25 20:59 Hydralazine HCl (APRESOLine 20MG INJ) 10 mg Q6H PRN IV For:SBP above 160;DBP above 90 07/03/25 18:30 08/02/25 18:29 Hydrochlorothiazide (hydroCHLOROthiazide 25MG) 12.5 mg DAILY PO 07/05/25 09:00 08/04/25 08:59 07/06/25 08:28 12.5 MG Insulin Human Regular (humuLIN R 100 UNIT/ML 3ML) INSULIN SLIDING SCAL... ACHS SQ 07/03/25 21:00 08/02/25 20:59 Lactulose (Constulose 20gm/ 30ml Udcup) 20 gm BID PRN PO CONSTIPATION 07/03/25 18:30 08/02/25 18:29 Latanoprost (Xalatan) 1 DROP HS OP 07/04/25 21:00 08/03/25 20:59 07/05/25 19:54 1 DROP Lisinopril (Prinivil 20mg) 20 mg DAILY PO 07/05/25 09:00 08/04/25 08:59 07/06/25 08:28 20 MG Magnesium Sulfate 50 ml @ 0 mls/hr PROTOCOL PRN IV MAGNESIUM PROTOCOL 07/04/25 15:00 08/03/25 14:59 07/06/25 06:45 15 MLS/HR Meloxicam (Mobic 7.5mg) 15 mg HS PO 07/04/25 21:00 08/03/25 20:59 07/05/25 19:54 15 MG Metoprolol Tartrate (loprESSOR) 5 mg Q5MIN PRN IV AFIB RVR HEART RATE > 120 BPM 07/03/25 18:30 07/05/25 23:01 DC 07/05/25 23:01 5 MG Metoprolol Tartrate (loprESSOR) 12.5 mg BID PO 07/03/25 21:00 07/04/25 13:36 DC 07/04/25 08:49 12.5 MG Montelukast Sodium (SinguLAIR) 10 mg HS PO 07/04/25 21:00 08/03/25 20:59 07/05/25 19:55 10 MG Morphine Sulfate (morPHINE 2MG SYG) 2 mg Q4H PRN IVP SEVERE PAIN (7-10) 07/03/25 18:30 07/10/25 18:29 Ondansetron HCl (zoFRAN 4MG INJ) 4 mg Q6H PRN IV NAUSEA/VOMITING 07/03/25 18:30 08/02/25 18:29 Pharmacy Profile Note (Pharmacy Communication) 1 each ONCE MISC 07/03/25 18:30 07/03/25 18:24 DC Potassium Chloride 100 ml @ 100 mls/hr AD PRN IV POTASSIUM PROTOCOL 07/04/25 15:00 08/03/25 14:59 Potassium Chloride (K-Dur/Klor-Con 20meq) 20 meq AD PRN PO POTASSIUM PROTOCOL 07/04/25 15:00 08/03/25 14:59 07/05/25 19:55 20 MEQ Potassium Chloride (KCl 10% Elixir 20meq/15ml) 20 meq AD PRN PO POTASSIUM PROTOCOL 07/04/25 15:00 08/03/25 14:59 Rivaroxaban (Xarelto) 20 mg DAILY PO 07/04/25 21:00 08/03/25 20:59 07/06/25 08:27 20 MG Spironolactone (Aldactone 25mg) 25 mg DAILY PO 07/05/25 09:00 08/04/25 08:59 07/06/25 08:28 25 MG DIAGNOSTICS / RADIOLOGY: [ ] ASSESSMENT: AFib with a RVR, POA Shortness of Breath possibly due to poly pharmacy use, POA Anemia Sleep Apnea Hypertension Osteoarthritis Severe obesity, BMI 47.1 PLAN: AFib with a RVR, POA Monitor rhythm Keep on telemetry Cardiology increased the dose of diltiazem 240 mg OD continue Xarelto 20 mg As per cardiology, her bedside telemetry showed Sinus rhythm with episodes of paroxysmal atrial fibrillation with RVR and SVT with HR ranging between 160- 170's Keep the patient on continuous telemetry monitoring and maintain electrolytes within normal parameter Shortness of Breath due to possible poly pharmacy use, Chest x-ray negative CT chest negative for pulmonary embolism. Possible pulmonary artery hypertension. Echocardiographically showed right ventricular dilation and LVEF of 55-60%. Cortisol a.m. levels pending for today As per the 6 minute walk test, the patient was able to walk3 minutes without shortness of breaths but got tired due to arthritis Pulmonology stated that shortness of breath appears to be cardiac in origin likely associated with her AFib RVR. Ultrasound Doppler lower extremity negative for VTE. Orthostatic hypotension test showed blood pressure 129/69 on sitting and 108/53 on standing yesterday Due to significant drop in blood pressure, cardiology stopped patient's Bumex Anemia Hemoglobin trending to 11.2 From 10.6 after transfusing1 unit of iron sucrose yesterday Monitor CBC regularly Transfuse 1 PRBC if HGB less than 7 Hypertension Blood pressure today is 104/63 Continue hydrochlorothiazide 12.5 mg p.o. daily Continue lisinopril 20 mg p.o. daily Monitor blood pressure regularly Administer 1 dose of hydralazine 10 mg IV q.6 H p.r.n. if blood pressure is more than 160/90 Osteoarthritis, sleep apnea, severe obesity Lifestyle measures such as weight loss and sleep hygiene Order physiotherapy for osteoarthritis GI prophylaxis: Famotidine 20 mg p.o. daily ATTESTATION BY PHYSICIAN I have seen and examined the patient. I reviewed the documentation, medical decision making, and treatment plan as noted by the resident provider above. I agree with the findings and plan of care. Andrzej Tavares MD, BHAVANI MD Jul 06, 2025 14:52
[2025-07-07] VITALS (9 sets, daily range): BP systolic 95–118; BP diastolic 49–65; PULSE 54–113; RESP 18–19; TEMP 97.6–98.2; O2SAT 95
[2025-07-07 05:28] LABS: NUCLEATED RED BLOOD CELLS 0.0 % (0.0-0.19); PLATELET COUNT (AUTO) 283.0 K/uL (130-400); RED BLOOD CELL COUNT(AUTO) 3.61 MIL/uL (4.00-5.50); RED CELL DISTRIBUTION WIDTH 13.2 % (11.0-15.5); WHITE BLOOD COUNT (AUTO) 7.3 K/uL (4.8-10.8)
[2025-07-07 05:51] LABS: CREATININE 0.9 mg/dL (0.5-1.0); GLOMERULAR FILTR. RATE CALC 69.0 mL/min (>90); GLUCOSE,RANDOM 94.0 mg/dL (70-105); SODIUM SERUM 138.0 mmol/L (136-145); UREA NITROGEN, BLOOD 32.0 mg/dL (7-18)
[2025-07-07] MEDS: PoTASSium chloRIDE 20MEQ ER 20 MEQ ERTAB PO ONE (09:04)
--- NOTE | 2025-07-07 12:52 | PN ---
[facility] PROGRESS NOTE Date of Service: Jul 07, 2025 Time of Service: 12:52 SUBJECTIVE: Patient is a 69-year-old female with past medical history of hypertension, osteoporosis of both knee and atrial fibrillation for which she is on Xarelto. The patient came to the ER with complain of shortness of breaths since 1 week and has progressed since then such that the patient has shortness of breath even when she goes to the washroom. The patient complains of no chest pain, dizziness, vertigo, and syncope. The patient stated that she started taking [id number] drug called ArtiKing for the past 2 months after her friend recommended it for her knee pain and it got better. On Monday the patient went to her PCP for her regular appointment in which she discussed the [id number] medication with the doctor and the doctor recommended her to follow up with the orthopedic due to potential side effects of the drug and advised to stop the medication, which the patient did. On the patient was treated her orthopedic and discussed the medication. The orthopedic told her to stop the medication as it contained steroids and advised the patient to go to the ER for shortness of breaths and tapering off the medication. The patient has a history of sleep apnea for which she used to use CPAP but according to the patient she has not used that in years. She has gained 40 lb in 1 month. On admission, blood pressure was 114/69, pulse rate 104, respiratory rate 22 and oxygen saturation 96% on room air. EKG was done that showed atrial fibrillation with rapid ventricular response. Her BNP was 70, D-dimer 219, troponin 8, and HGB A1c 5.3. Chest x-ray was nonsignificant for any cardiopulmonary pathology. Chest x-ray showed no pulmonary embolism but but suggested pulmonary artery hypertension for which echo was recommended. 07/04/2025: The patient is alert, awake, and oriented. She is complaining of shortness of breaths while going to the restroom but no chest pain. Today the patient is rhythm was sinus with pulse rate of 78. Cardiology and pulmonology were consulted for shortness of breaths and atrial fibrillation. The patient also complained of bilateral lower extremity edema for which she was switched from Lasix to Bumex. Due to her use of kljq-stm-cbikvum medication that contains dexamethasone, cortisol a.m. levels were ordered. Due to patient's shortness of breath, ABGs were ordered but the patient refused ABGs. 07/05/2025: Patient is awake, alert, and oriented. The patient is not complaining of shortness of breaths and she says it is better than yesterday. Today the patient is rhythm was AFib 108. Pulmonology saw the patient yesterday and commented that the shortness of breath was cardiac in origin. Cardiology s topped metoprolol and increased the dose of diltiazem. The patient had a 6 minute walk today and was able to walk only 3 minutes with no shortness a breath and stopped after 3 minutes due to pain in her knees. Orthostatic hypotension test was done that showed a significant drop in blood pressure therefore Cardiology stopped patient's Bumex. 07/06/2025: Patient is alert, awake and oriented. She denies shortness of breath and feels better than yesterday. Nurse informed me that she has AFib 120s when she is active and in 90s when she is resting. Her heart rate is 79 when I saw her. Cardiology consulted her and increase the dose of diltiazem to 240 mg once a day. 07/07 patient is seen and examined at bedside, case discussed with the RN, no acute events overnight, Cardiology input noted and appreciated, sedated to has been increased to 240 mg daily, EP consultation requested, we will follow input and recommendations. REVIEW OF SYSTEMS CONSTITUTIONAL: Denies fevers, chills, or night sweats. No unintentional weight loss reported. Osteoarthritis of both knees NEUROLOGICAL: Denies headache, amaurosis fugax, motor weakness, sensory deficit, vertigo/spinning sensation, gait abnormalities, or tremors. ENT: No hearing loss, otalgia, otorrhea, rhinitis, rhinorrhea, hoarseness, or sore throat. CARDIOVASCULAR: Denies any exertional angina, dyspnea on exertion, orthopnea, paroxysmal nocturnal dyspnea, palpitations, life-threatening arrhythmias, claudication. PULMONARY: Shortness of breaths improved SLEEP: History of sleep apnea for which he used CPAP many years ago GASTROINTESTINAL: Denies any type of dysphagia to either liquids or solids. Denies nausea, vomiting, pyrosis, early satiety, abdominal pain, diarrhea, constipation, or changes in stool consistency or caliber. Denies coffee-ground emesis, hematemesis, hematochezia, or melanotic stools. GENITOURINARY: Denies frequency, urgency, nocturia, hematuria or incontinence (Storage/Irritative symptoms.) Low urinary stream, straining to void, urinary intermittency or hesitancy, splitting of the voiding stream, terminal dribbling. ENDOCRINOLOGIC: Denies polyuria, polydipsia, polyphagia or heat/cold intoleran koby. PHYSICAL EXAM GENERAL APPEARANCE: The patient is awake, alert, and oriented. Obese NEUROLOGICAL: Cranial nerves II-XII grossly intact. Motor is 5/5 in bilateral upper and lower extremities proximal to distal. No sensory deficits. HEENT: Face is symmetric. Pupils are equal and reactive. Extraocular movements are intact. NECK: Supple. No JVD. No thyromegaly. No submental, submandibular, pre- /postauricular, occipital or supraclavicular lymphadenopathy. CHEST: Normal chest expansion. No Telemetry. LUNGS: Absence of any rales, rhonchi or any wheezing. CARDIOVASCULAR: Regular. S1 and S2 normal. No appreciable rubs, murmurs or gallops. ABDOMEN: Soft, nontender, and nondistended. There is no rebound, voluntary guarding, or rigidity. : Deferred. No Wilson. EXTREMITIES: Improving Bilateral Lower extremity pitting edema SKIN: No skin breakdown. Vital Signs (last 8hr) Date Time Temp Pulse Resp B/P (MAP) Pulse Ox O2 Delivery O2 Flow Rate FiO2 07/07/25 12:06 103 18 96/65 98 Room Air 07/07/25 12:05 90 18 111/54 95 Room Air 07/07/25 12:04 97.5 113 18 96/56 94 Room Air 07/07/25 08:02 98.1 54 18 118/62 95 Room Air 07/07/25 07:59 97.9 88 19 105/65 97 Room Air LABS: Laboratory: Test 07/07/25 05:03 07/06/25 06:16 Range/Units White Blood Count 7.3 4.8-10.8 K/uL Red Blood Count 3.61 L 4.00-5.50 MIL/uL Hemoglobin 11.6 L 12.0-16.0 g/dL Hematocrit 34.9 L 36-48 % Mean Corpuscular Volume 96.7 79-99 fL Mean Corpuscular Hemoglobin 32.1 27.0-33.0 pg Mean Corpuscular Hemoglobin Concent 33.2 32.0-36.0 g/dL Red Cell Distribution Width 13.2 11.0-15.5 % Platelet Count 283 130-400 K/uL Mean Platelet Volume 9.0 7.5-10.5 fL Nucleated Red Blood Cells 0.0 0.0-0.19 % Sodium Level 138 136-145 mmol/L Potassium Level 3.2 L 3.5-5.1 mmol/L Chloride Level 102 101-111 mmol/L Carbon Dioxide Level 30 21-32 mmol/L Blood Urea Nitrogen 32 H 7-18 mg/dL Creatinine 0.9 0.5-1.0 mg/dL Glomerular Filtration Rate Calc 69 >90 mL/min Random Glucose 94 70-105 mg/dL Total Calcium 8.9 8.5-10.1 mg/dL Magnesium Level 1.90 1.80-2.40 mg/dL Thyroid Stimulating Hormone (TSH) 1.31 # 0.36-3.74 uIU/mL Current Medications Medications (Trade) Dose Ordered Sig/Cory Route PRN Reason Start Time Stop Time Status Last Admin Dose Admin Acetaminophen (TYLenol 325MG TAB) 650 mg Q6H PRN PO TEMPERATURE GREATER THAN 101.5 07/03/25 18:30 08/02/25 18:29 Apixaban (EliquIS) 5 mg BID PO 07/03/25 21:00 07/04/25 09:15 DC 07/04/25 08:49 5 MG Bumetanide (Bumex 1mg Tab) 1 mg BID PO 07/04/25 21:00 07/05/25 13:00 DC 07/05/25 09:45 1 MG Diltiazem HCl (CARDIzem 120MG CD) 120 mg DAILY PO 07/05/25 09:00 07/04/25 15:24 DC Diltiazem HCl (CARDIzem 120MG CD) 240 mg DAILY PO 07/07/25 09:00 08/06/25 08:59 07/07/25 08:56 240 MG Diltiazem HCl (CARDIzem 180MG CD) 180 mg DAILY PO 07/05/25 09:00 07/06/25 11:04 DC 07/06/25 08:27 180 MG Famotidine (Pepcid 20mg Tab) 20 mg DAILY PO 07/04/25 09:00 08/03/25 08:59 07/07/25 08:58 20 MG Furosemide (LASix 20MG TAB) 20 mg BID@09,17 PO 07/04/25 09:00 07/04/25 11:00 DC 07/04/25 08:51 20 MG Home Med (Home Medication) (Estradiol (Estrace) 1 GM) HS VG 07/04/25 21:00 08/03/25 20:59 Hydralazine HCl (APRESOLine 20MG INJ) 10 mg Q6H PRN IV For:SBP above 160;DBP above 90 07/03/25 18:30 08/02/25 18:29 Hydrochlorothiazide (hydroCHLOROthiazide 25MG) 12.5 mg DAILY PO 07/05/25 09:00 08/04/25 08:59 07/07/25 08:56 12.5 MG Insulin Human Regular (humuLIN R 100 UNIT/ML 3ML) INSULIN SLIDING SCAL... ACHS SQ 07/03/25 21:00 08/02/25 20:59 Lactulose (Constulose 20gm/ 30ml Udcup) 20 gm BID PRN PO CONSTIPATION 07/03/25 18:30 08/02/25 18:29 Latanoprost (Xalatan) 1 DROP HS OP 07/04/25 21:00 08/03/25 20:59 07/06/25 20:18 1 DROP Lisinopril (Prinivil 20mg) 20 mg DAILY PO 07/05/25 09:00 08/04/25 08:59 07/07/25 08:57 20 MG Magnesium Sulfate 50 ml @ 0 mls/hr PROTOCOL PRN IV MAGNESIUM PROTOCOL 07/04/25 15:00 08/03/25 14:59 07/06/25 06:45 15 MLS/HR Meloxicam (Mobic 7.5mg) 15 mg HS PO 07/04/25 21:00 08/03/25 20:59 07/06/25 20:17 15 MG Metoprolol Tartrate (loprESSOR) 5 mg Q5MIN PRN IV AFIB RVR HEART RATE > 120 BPM 07/03/25 18:30 07/05/25 23:01 DC 07/05/25 23:01 5 MG Metoprolol Tartrate (loprESSOR) 12.5 mg BID PO 07/03/25 21:00 07/04/25 13:36 DC 07/04/25 08:49 12.5 MG Montelukast Sodium (SinguLAIR) 10 mg HS PO 07/04/25 21:00 08/03/25 20:59 07/06/25 20:17 10 MG Morphine Sulfate (morPHINE 2MG SYG) 2 mg Q4H PRN IVP SEVERE PAIN (7-10) 07/03/25 18:30 07/10/25 18:29 Ondansetron HCl (zoFRAN 4MG INJ) 4 mg Q6H PRN IV NAUSEA/VOMITING 07/03/25 18:30 08/02/25 18:29 Pharmacy Profile Note (Pharmacy Communication) 1 each ONCE MISC 07/03/25 18:30 07/03/25 18:24 DC Potassium Chloride 100 ml @ 100 mls/hr AD PRN IV POTASSIUM PROTOCOL 07/04/25 15:00 08/03/25 14:59 Potassium Chloride (K-Dur/Klor-Con 20meq) 20 meq AD PRN PO POTASSIUM PROTOCOL 07/04/25 15:00 08/03/25 14:59 07/07/25 06:11 20 MEQ Potassium Chloride (KCl 10% Elixir 20meq/15ml) 20 meq AD PRN PO POTASSIUM PROTOCOL 07/04/25 15:00 08/03/25 14:59 Rivaroxaban (Xarelto) 20 mg DAILY PO 07/04/25 21:00 08/03/25 20:59 07/07/25 08:58 20 MG Spironolactone (Aldactone 25mg) 25 mg DAILY PO 07/05/25 09:00 08/04/25 08:59 07/07/25 08:59 25 MG DIAGNOSTICS / RADIOLOGY: [ ] ASSESSMENT: AFib with a RVR, POA Shortness of Breath possibly due to poly pharmacy use, POA Anemia Sleep Apnea Hypertension Osteoarthritis Severe obesity, BMI 47.1 PLAN: AFib with a RVR, POA Monitor rhythm Keep on telemetry Cardiology increased the dose of diltiazem 240 mg OD continue Xarelto 20 mg As per cardiology, her bedside telemetry showed Sinus rhythm with episodes of paroxysmal atrial fibrillation with RVR and SVT with HR ranging between 160- 170's Keep the patient on continuous telemetry monitoring and maintain electrolytes within normal parameter Shortness of Breath due to possible poly pharmacy use, Chest x-ray negative CT chest negative for pulmonary embolism. Possible pulmonary artery hypertension. Echocardiographically showed right ventricular dilation and LVEF of 55-60%. Cortisol a.m. levels pending for today As per the 6 minute walk test, the patient was able to walk3 minutes without shortness of breaths but got tired due to arthritis Pulmonology stated that shortness of breath appears to be cardiac in origin likely associated with her AFib RVR. Ultrasound Doppler lower extremity negative for VTE. Orthostatic hypotension test showed blood pressure 129/69 on sitting and 108/53 on standing yesterday Due to significant drop in blood pressure, cardiology stopped patient's Bumex Anemia Hemoglobin trending to 11.2 From 10.6 after transfusing1 unit of iron sucrose yesterday Monitor CBC regularly Transfuse 1 PRBC if HGB less than 7 Hypertension Blood pressure today is 104/63 Continue hydrochlorothiazide 12.5 mg p.o. daily Continue lisinopril 20 mg p.o. daily Monitor blood pressure regularly Administer 1 dose of hydralazine 10 mg IV q.6 H p.r.n. if blood pressure is more than 160/90 Osteoarthritis, sleep apnea, severe obesity Lifestyle measures such as weight loss and sleep hygiene Order physiotherapy for osteoarthritis GI prophylaxis: Famotidine 20 mg p.o. daily KULDEEP CRAWFORD MD Jul 07, 2025 12:52
--- NOTE | 2025-07-07 13:09 | PN ---
[facility] CARDIOLOGY PROGRESS NOTE Date Patient Seen: Jul 07, 2025 Time of Visit: 12:55 Interval History: [No acute events overnight. Currently denying any cardiac symptoms or anginal equivalents. Patient is endorsing ongoing dizziness upon positional changes. Review of telemetry shows atrial fibrillation with a heart rate of 102. Currently on diltiazem infusion Physical Examination: GENERAL: No acute distress. HEAD: Normal with no signs of head trauma. EYES: PERRLA, EOMI, conjunctiva and sclera normal. NECK: Supple without JVD. There is no tenderness, lymphadenopathy, or masses. No thyromegaly. Normal carotid upstrokes without bruits. LUNGS: Clear breath sounds bilaterally. No wheezes, or rhonchi. HEART: Normal rate and rhythm. Normal S1 and S2 without murmurs, gallop or rub. VASC: Peripheral pulses +2 bilaterally. EXT: No clubbing or cyanosis. LLE with 1+ edema. NEURO: Awake, alert, and oriented x3. No focal neurological deficits noted. Laboratory: [ ] Hematology Labs: Test 07/07/25 05:03 Range/Units White Blood Count 7.3 4.8-10.8 K/uL Red Blood Count 3.61 L 4.00-5.50 MIL/uL Hemoglobin 11.6 L 12.0-16.0 g/dL Hematocrit 34.9 L 36-48 % Mean Corpuscular Volume 96.7 79-99 fL Mean Corpuscular Hemoglobin 32.1 27.0-33.0 pg Mean Corpuscular Hemoglobin Concent 33.2 32.0-36.0 g/dL Red Cell Distribution Width 13.2 11.0-15.5 % Platelet Count 283 130-400 K/uL Mean Platelet Volume 9.0 7.5-10.5 fL Nucleated Red Blood Cells 0.0 0.0-0.19 % Chemistry Labs: Test 07/07/25 05:03 07/06/25 06:16 Range/Units Sodium Level 138 136-145 mmol/L Potassium Level 3.2 L 3.5-5.1 mmol/L Chloride Level 102 101-111 mmol/L Carbon Dioxide Level 30 21-32 mmol/L Blood Urea Nitrogen 32 H 7-18 mg/dL Creatinine 0.9 0.5-1.0 mg/dL Glomerular Filtration Rate Calc 69 >90 mL/min Random Glucose 94 70-105 mg/dL Total Calcium 8.9 8.5-10.1 mg/dL Magnesium Level 1.90 1.80-2.40 mg/dL Thyroid Stimulating Hormone (TSH) 1.31 # 0.36-3.74 uIU/mL Diagnostics / Radiology: [Copy/Paste Echos/Imaging Report here] Impression and Plan: [-exertional dyspnea and dizziness -Paroxysmal atrial fibrillation with RVR -h/o right popliteal vein thrombus and extensive bilateral PE (R>L) in 08/2024, with CTA negative for PE on 07/03/2025 and venous Doppler negative for DVT on 07/04/2025 -Normal LV systolic function (LVEF: 55-60% by echo done 07/04/2025) -HTN -Morbid obesity ] #Paroxysmal atrial fibrillation Patient initially endorsing exertional dyspnea Positive history for right popliteal vein thrombus and extensive bilateral PE in August of 2024 CTA chest negative for PE (07/03/2025) with venous Dopplers negative for DVT (07/04/2025) 2D echocardiogram LVEF 55-60% with no wall motion or valvular abnormalities (07/04/2025) Current review of telemetry shows atrial fibrillation with a heart rate of 102 Heart rate has improved with increase of diltiazem yesterday Keep on telemetry, monitor/replace electrolytes as needed ( Mg > 2 , K > 4 ) We will continue diltiazem 240 mg daily at this time We will continue Xarelto 20 mg daily for PPX #Suspected orthostatic hypotension Patient is endorsing ongoing dizziness that exacerbates with positional changes We will evaluate orthostatics every12 hours If positive administer 500 mL of N/S x1 IV We will hold HCTZ and Aldactone at this time Thank you for this consult cardiology will continue to follow along Gamaliel layton MD ATTESTATION BY PHYSICIAN I have seen and examined the patient, reviewed the above documentation, participated in medical decision making, made necessary modifications, and agree with the treatment plan as documented by my mid-level provider above. MD ERIN Vargas JAMES R MD Jul 07, 2025 13:09
[2025-07-08] VITALS: BP 128/50; PULSE 87; RESP 18; TEMP 98
[2025-07-08 04:00] VITALS: BP 99/55; PULSE 80; RESP 20; TEMP 97.6
[2025-07-08 04:53] LABS: NUCLEATED RED BLOOD CELLS 0.0 % (0.0-0.19); PLATELET COUNT (AUTO) 305.0 K/uL (130-400); RED BLOOD CELL COUNT(AUTO) 3.65 MIL/uL (4.00-5.50); RED CELL DISTRIBUTION WIDTH 13.3 % (11.0-15.5); WHITE BLOOD COUNT (AUTO) 7.8 K/uL (4.8-10.8)
[2025-07-08 05:16] LABS: CREATININE 1.3 mg/dL (0.5-1.0); GLUCOSE,RANDOM 112.0 mg/dL (70-105); SODIUM SERUM 140.0 mmol/L (136-145); UREA NITROGEN, BLOOD 41.0 mg/dL (7-18)
[2025-07-08 05:17] LABS: ASPARTATE AMINOTRANSFERASE 30.0 U/L (10-37); GLOMERULAR FILTR. RATE CALC 44.0 mL/min (>90); TOTAL PROTEIN, SERUM 6.3 g/dL (6.0-8.3)
[2025-07-08 08:00] VITALS: BP 100/49; PULSE 125; RESP 16; TEMP 97.9
[2025-07-08] MEDS: PROPAFENONE HCL 150 MG TABLET PO STA (11:23)
[2025-07-08] MEDS: LORATAdine 10 mg 10 MG TABLET PO SCH (11:23)
--- NOTE | 2025-07-08 11:25 | CONS ---
[facility] CARDIAC ELECTROPHYSIOLOGY CONSULTATION Date Patient Seen: Jul 08, 2025 Time of Visit: 11:10 Reason for Consultation: Atrial arrhythmias History of Present Illness: The patient is a 69-year-old woman, patient of Dr. Tacho Ortiz, with a history of hypertension, right popliteal vein thrombosis and extensive bilateral pulmonary emboli in August of 2024, morbid obesity, and untreated obstructive sleep apnea, having worn a dental appliance in the past. She also has a history of atrial arrhythmias, including paroxysmal atrial fibrillation, atrial tachycardia, and SVT. She has been treated with diltiazem and is on Xarelto for both pulmonary emboli and atrial fibrillation. She presented to the hospital with one week of progressive dyspnea on exertion. She was concerned that she may have had another pulmonary embolism. She has been worked up extensively. CT angiogram was negative for pulmonary embolism. There were no clinical or radiographic signs of congestive heart failure. She had an echo on this admission showing dilated right ventricle, normal left and right atria, and trace MR and TR. The ejection fraction was 55-60%. There was mild concentric LVH and diastolic function was normal. Of note, she had an echocardiogram on 08/21/2024 here at this hospital which showed severe right atrial dilatation and moderate tricuspid regurgitation. This was in the setting of pulmonary emboli. She has been felt to have paroxysmal atrial fibrillation during this admission. I reviewed all of the EKGs and tracings and these all show either sinus rhythm or SVT. In addition, I reviewed all of the EKGs done at [facility] and these show variably sinus rhythm SVT and atrial tachycardia, with one suggesting a low right atrial focus. The SVT is likely to be atrial tachycardia as well. The patient was also orthostatic however this was likely due to volume depletion due to diuresis. BUN and creatinine have risen since admission to 41/1.3. Past Medical History: As above Family History: Noncontributory Social History: Denies smoking or alcohol abuse Home Meds: See list Current Meds: See list Review of Systems: Negative on a 13 point review Physical Examination: GENERAL: Morbidly obese, in no acute distress HEENT: Grossly within normal limits NECK: Supple without JVD. LUNGS: Clear breath sounds bilaterally. No wheezes, or rhonchi. HEART: Regular with occasional premature beats. Normal S1 and S2 without murmurs, gallop or rub. EXT: No edema NEURO: Grossly nonfocal Vital Signs (last 8hr) Date Time Temp Pulse Resp B/P (MAP) Pulse Ox O2 Delivery O2 Flow Rate FiO2 07/08/25 08:00 97.9 125 16 100/49 94 Room Air 07/08/25 04:00 97.5 80 20 99/55 95 Room Air Laboratory: [ ] Hematology Labs: Test 07/08/25 04:31 Range/Units White Blood Count 7.8 4.8-10.8 K/uL Red Blood Count 3.65 L 4.00-5.50 MIL/uL Hemoglobin 11.5 L 12.0-16.0 g/dL Hematocrit 35.8 L 36-48 % Mean Corpuscular Volume 98.1 79-99 fL Mean Corpuscular Hemoglobin 31.5 27.0-33.0 pg Mean Corpuscular Hemoglobin Concent 32.1 32.0-36.0 g/dL Red Cell Distribution Width 13.3 11.0-15.5 % Platelet Count 305 130-400 K/uL Mean Platelet Volume 9.0 7.5-10.5 fL Nucleated Red Blood Cells 0.0 0.0-0.19 % Chemistry Labs: Test 07/08/25 04:31 Range/Units Sodium Level 140 136-145 mmol/L Potassium Level 3.9 3.5-5.1 mmol/L Chloride Level 104 101-111 mmol/L Carbon Dioxide Level 28 21-32 mmol/L Blood Urea Nitrogen 41 H 7-18 mg/dL Creatinine 1.3 H 0.5-1.0 mg/dL Glomerular Filtration Rate Calc 44 >90 mL/min Random Glucose 112 H 70-105 mg/dL Total Calcium 9.3 8.5-10.1 mg/dL Magnesium Level 2.10 1.80-2.40 mg/dL Total Bilirubin 0.6 0.2-1.0 mg/dL Aspartate Amino Transf (AST/SGOT) 30 10-37 U/L Alanine Aminotransferase (ALT/SGPT) 54 12-78 U/L Alkaline Phosphatase 62 50-136 U/L Total Protein 6.3 6.0-8.3 g/dL Albumin 2.9 L 3.5-5.0 g/dL Assessment: 1. Atrial tachycardia 2. Supraventricular tachycardia, most likely atrial tachycardia 3. THERE IS NO EVIDENCE OF ATRIAL FIBRILLATION 4. Morbid obesity 5. Untreated obstructive sleep apnea 6. Right ventricular dilatation, likely related to previous pulmonary emboli 7. History of severe right atrial dilatation and moderate tricuspid regurgitation Plan: 1. Continue diltiazem 2. Start propafenone 150 mg q.8 hours 3. 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 I discussed the importance of weight loss, particularly with regards to atrial arrhythmias 5. I discussed the importance of workup and treatment of sleep apnea for same reasons as above. 6. Further recommendations to follow Thank you very much for this consultation. WANG CARMONA MD Jul 08, 2025 11:25
--- NOTE | 2025-07-08 11:47 | PN ---
[facility] PROGRESS NOTE Date of Service: Jul 08, 2025 Time of Service: 11:39 SUBJECTIVE: Patient is a 69-year-old female with past medical history of hypertension, osteoporosis of both knee and atrial fibrillation for which she is on Xarelto. The patient came to the ER with complain of shortness of breaths since 1 week and has progressed since then such that the patient has shortness of breath even when she goes to the washroom. The patient complains of no chest pain, dizziness, vertigo, and syncope. The patient stated that she started taking yvsy-[id number] drug called ArtiKing for the past 2 months after her friend recommended it for her knee pain and it got better. On Monday the patient went to her PCP for her regular appointment in which she discussed the [id number] medication with the doctor and the doctor recommended her to follow up with the orthopedic due to potential side effects of the drug and advised to stop the medication, which the patient did. On the patient was treated her orthopedic and discussed the medication. The orthopedic told her to stop the medication as it contained steroids and advised the patient to go to the ER for shortness of breaths and tapering off the medication. The patient has a history of sleep apnea for which she used to use CPAP but according to the patient she has not used that in years. She has gained 40 lb in 1 month. On admission, blood pressure was 114/69, pulse rate 104, respiratory rate 22 and oxygen saturation 96% on room air. EKG was done that showed atrial fibrillation with rapid ventricular response. Her BNP was 70, D-dimer 219, troponin 8, and HGB A1c 5.3. Chest x-ray was nonsignificant for any cardiopulmonary pathology. Chest x-ray showed no pulmonary embolism but but suggested pulmonary artery hypertension for which echo was recommended. 07/04/2025: The patient is alert, awake, and oriented. She is complaining of shortness of breaths while going to the restroom but no chest pain. Today the patient is rhythm was sinus with pulse rate of 78. Cardiology and pulmonology were consulted for shortness of breaths and atrial fibrillation. The patient also complained of bilateral lower extremity edema for which she was switched from Lasix to Bumex. Due to her use of hjrz-sww-cikrmql medication that contains dexamethasone, cortisol a.m. levels were ordered. Due to patient's shortness of breath, ABGs were ordered but the patient refused ABGs. 07/05/2025: Patient is awake, alert, and oriented. The patient is not complaining of shortness of breaths and she says it is better than yesterday. Today the patient is rhythm was AFib 108. Pulmonology saw the patient yesterday and commented that the shortness of breath was cardiac in origin. Cardiology s topped metoprolol and increased the dose of diltiazem. The patient had a 6 minute walk today and was able to walk only 3 minutes with no shortness a breath and stopped after 3 minutes due to pain in her knees. Orthostatic hypotension test was done that showed a significant drop in blood pressure therefore Cardiology stopped patient's Bumex. 07/06/2025: Patient is alert, awake and oriented. She denies shortness of breath and feels better than yesterday. Nurse informed me that she has AFib 120s when she is active and in 90s when she is resting. Her heart rate is 79 when I saw her. Cardiology consulted her and increase the dose of diltiazem to 240 mg once a day. 07/07 patient is seen and examined at bedside, case discussed with the RN, no acute events overnight, Cardiology input noted and appreciated, sedated to has been increased to 240 mg daily, EP consultation requested, we will follow input and recommendations. 07/08 patient is seen and examined at bedside, case discussed with the RN, no acute events overnight, remains admitted to medical floor, BP 100/49, heart rate of 125 earlier this morning, she is saturating normal on room air, denies dizziness, no palpitations, no chest pain, no shortness a breath, no nausea, no vomiting. Patient evaluated by EP, atrial tachycardia, supraventricular tachycardia most likely atrial tachycardia, there is no evidence of atrial fibrillation. 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 We will continue to follow recommendation. REVIEW OF SYSTEMS CONSTITUTIONAL: Denies fevers, chills, or night sweats. No unintentional weight loss reported. Osteoarthritis of both knees NEUROLOGICAL: Denies headache, amaurosis fugax, motor weakness, sensory deficit, vertigo/spinning sensation, gait abnormalities, or tremors. ENT: No hearing loss, otalgia, otorrhea, rhinitis, rhinorrhea, hoarseness, or sore throat. CARDIOVASCULAR: Denies any exertional angina, dyspnea on exertion, orthopnea, paroxysmal nocturnal dyspnea, palpitations, life-threatening arrhythmias, claudication. PULMONARY: Shortness of breaths improved SLEEP: History of sleep apnea for which he used CPAP many years ago GASTROINTESTINAL: Denies any type of dysphagia to either liquids or solids. Denies nausea, vomiting, pyrosis, early satiety, abdominal pain, diarrhea, constipation, or changes in stool consistency or caliber. Denies coffee-ground emesis, hematemesis, hematochezia, or melanotic stools. GENITOURINARY: Denies frequency, urgency, nocturia, hematuria or incontinence (Storage/Irritative symptoms.) Low urinary stream, straining to void, urinary intermittency or hesitancy, splitting of the voiding stream, terminal dribbling. ENDOCRINOLOGIC: Denies polyuria, polydipsia, polyphagia or heat/cold intolerances. PHYSICAL EXAM GENERAL APPEARANCE: The patient is awake, alert, and oriented. Obese NEUROLOGICAL: Cranial nerves II-XII grossly intact. Motor is 5/5 in bilateral upper and lower extremities proximal to distal. No sensory deficits. HEENT: Face is symmetric. Pupils are equal and reactive. Extraocular movements are intact. NECK: Supple. No JVD. No thyromegaly. No submental, submandibular, pre- /postauricular, occipital or supraclavicular lymphadenopathy. CHEST: Normal chest expansion. No Telemetry. LUNGS: Absence of any rales, rhonchi or any wheezing. CARDIOVASCULAR: Regular. S1 and S2 normal. No appreciable rubs, murmurs or gallops. ABDOMEN: Soft, nontender, and nondistended. There is no rebound, voluntary guarding, or rigidity. : Deferred. No Wilson. EXTREMITIES: Improving Bilateral Lower extremity pitting edema SKIN: No skin breakdown. Vital Signs (last 8hr) Date Time Temp Pulse Resp B/P (MAP) Pulse Ox O2 Delivery O2 Flow Rate FiO2 07/08/25 08:00 97.9 125 16 100/49 94 Room Air 07/08/25 04:00 97.5 80 20 99/55 95 Room Air LABS: Laboratory: Test 07/08/25 04:31 Range/Units White Blood Count 7.8 4.8-10.8 K/uL Red Blood Count 3.65 L 4.00-5.50 MIL/uL Hemoglobin 11.5 L 12.0-16.0 g/dL Hematocrit 35.8 L 36-48 % Mean Corpuscular Volume 98.1 79-99 fL Mean Corpuscular Hemoglobin 31.5 27.0-33.0 pg Mean Corpuscular Hemoglobin Concent 32.1 32.0-36.0 g/dL Red Cell Distribution Width 13.3 11.0-15.5 % Platelet Count 305 130-400 K/uL Mean Platelet Volume 9.0 7.5-10.5 fL Nucleated Red Blood Cells 0.0 0.0-0.19 % Sodium Level 140 136-145 mmol/L Potassium Level 3.9 3.5-5.1 mmol/L Chloride Level 104 101-111 mmol/L Carbon Dioxide Level 28 21-32 mmol/L Blood Urea Nitrogen 41 H 7-18 mg/dL Creatinine 1.3 H 0.5-1.0 mg/dL Glomerular Filtration Rate Calc 44 >90 mL/min Random Glucose 112 H 70-105 mg/dL Total Calcium 9.3 8.5-10.1 mg/dL Magnesium Level 2.10 1.80-2.40 mg/dL Total Bilirubin 0.6 0.2-1.0 mg/dL Aspartate Amino Transf (AST/SGOT) 30 10-37 U/L Alanine Aminotransferase (ALT/SGPT) 54 12-78 U/L Alkaline Phosphatase 62 50-136 U/L Total Protein 6.3 6.0-8.3 g/dL Albumin 2.9 L 3.5-5.0 g/dL Current Medications Medications (Trade) Dose Ordered Sig/Cory Route PRN Reason Start Time Stop Time Status Last Admin Dose Admin Acetaminophen (TYLenol 325MG TAB) 650 mg Q6H PRN PO TEMPERATURE GREATER THAN 101.5 07/03/25 18:30 08/02/25 18:29 Apixaban (EliquIS) 5 mg BID PO 07/03/25 21:00 07/04/25 09:15 DC 07/04/25 08:49 5 MG Bumetanide (Bumex 1mg Tab) 1 mg BID PO 07/04/25 21:00 07/05/25 13:00 DC 07/05/25 09:45 1 MG Diltiazem HCl (CARDIzem 120MG CD) 120 mg DAILY PO 07/05/25 09:00 07/04/25 15:24 DC Diltiazem HCl (CARDIzem 120MG CD) 240 mg DAILY PO 07/07/25 09:00 08/06/25 08:59 07/08/25 11:24 240 MG Diltiazem HCl (CARDIzem 180MG CD) 180 mg DAILY PO 07/05/25 09:00 07/06/25 11:04 DC 07/06/25 08:27 180 MG Famotidine (Pepcid 20mg Tab) 20 mg DAILY PO 07/04/25 09:00 08/03/25 08:59 07/08/25 11:23 20 MG Furosemide (LASix 20MG TAB) 20 mg BID@09,17 PO 07/04/25 09:00 07/04/25 11:00 DC 07/04/25 08:51 20 MG Home Med (Home Medication) (Estradiol (Estrace) 1 GM) HS VG 07/04/25 21:00 08/03/25 20:59 Hydralazine HCl (APRESOLine 20MG INJ) 10 mg Q6H PRN IV For:SBP above 160;DBP above 90 07/03/25 18:30 08/02/25 18:29 Hydrochlorothiazide (hydroCHLOROthiazide 25MG) 12.5 mg DAILY PO 07/05/25 09:00 07/08/25 10:03 DC 07/07/25 08:56 12.5 MG Insulin Human Regular (humuLIN R 100 UNIT/ML 3ML) INSULIN SLIDING SCAL... ACHS SQ 07/03/25 21:00 08/02/25 20:59 Lactulose (Constulose 20gm/ 30ml Udcup) 20 gm BID PRN PO CONSTIPATION 07/03/25 18:30 08/02/25 18:29 Latanoprost (Xalatan) 1 DROP HS OP 07/04/25 21:00 08/03/25 20:59 07/07/25 20:07 1 DROP Lisinopril (Prinivil 20mg) 20 mg DAILY PO 07/05/25 09:00 08/04/25 08:59 07/08/25 11:23 20 MG Loratadine (LORATAdine 10 mg) 10 mg DAILY PO 07/08/25 10:30 08/07/25 10:29 07/08/25 11:23 10 MG Magnesium Sulfate 50 ml @ 0 mls/hr PROTOCOL PRN IV MAGNESIUM PROTOCOL 07/04/25 15:00 08/03/25 14:59 07/06/25 06:45 15 MLS/HR Meloxicam (Mobic 7.5mg) 15 mg HS PO 07/04/25 21:00 08/03/25 20:59 07/07/25 20:05 15 MG Metoprolol Tartrate (loprESSOR) 5 mg Q5MIN PRN IV AFIB RVR HEART RATE > 120 BPM 07/03/25 18:30 07/05/25 23:01 DC 07/05/25 23:01 5 MG Metoprolol Tartrate (loprESSOR) 12.5 mg BID PO 07/03/25 21:00 07/04/25 13:36 DC 07/04/25 08:49 12.5 MG Montelukast Sodium (SinguLAIR) 10 mg HS PO 07/04/25 21:00 08/03/25 20:59 07/07/25 20:05 10 MG Morphine Sulfate (morPHINE 2MG SYG) 2 mg Q4H PRN IVP SEVERE PAIN (7-10) 07/03/25 18:30 07/10/25 18:29 Ondansetron HCl (zoFRAN 4MG INJ) 4 mg Q6H PRN IV NAUSEA/VOMITING 07/03/25 18:30 08/02/25 18:29 Pharmacy Profile Note (Pharmacy Communication) 1 each ONCE MISC 07/03/25 18:30 07/03/25 18:24 DC Potassium Chloride 100 ml @ 100 mls/hr AD PRN IV POTASSIUM PROTOCOL 07/04/25 15:00 08/03/25 14:59 Potassium Chloride (K-Dur/Klor-Con 20meq) 20 meq AD PRN PO POTASSIUM PROTOCOL 07/04/25 15:00 08/03/25 14:59 07/07/25 06:11 20 MEQ Potassium Chloride (KCl 10% Elixir 20meq/15ml) 20 meq AD PRN PO POTASSIUM PROTOCOL 07/04/25 15:00 08/03/25 14:59 Propafenone HCl (Rythmol) 150 mg Q8H STAT PO 07/08/25 10:30 07/08/25 10:37 DC 07/08/25 11:23 150 MG Rivaroxaban (Xarelto) 20 mg DAILY PO 07/04/25 21:00 08/03/25 20:59 07/08/25 11:23 20 MG Spironolactone (Aldactone 25mg) 25 mg DAILY PO 07/05/25 09:00 07/08/25 10:03 DC 07/07/25 08:59 25 MG DIAGNOSTICS / RADIOLOGY: [ ] ASSESSMENT: AFib with a RVR, POA Shortness of Breath possibly due to poly pharmacy use, POA Anemia Sleep Apnea Hypertension Osteoarthritis Severe obesity, BMI 47.1 PLAN: NEURO: Minimize central acting medications as possible. Fall Precautions. Well lighted room through the day and minimize interruptions through the night to prevent acute delirium. PULMONARY: Supplemental 02 as needed BiPAP as necessary, for respiratory distress Titrate Fio2 to keep Spo2 > or = 90% DuoNebs and CPT as needed IS hourly while awake for pulmonary hygiene prn Out of bed to chair as tolerated Maintain aspiration precautions at all times CARDIOVASCULAR: Follow hemodynamics. Vital signs per facility protocol GI & NUTRITION: Continue nutritional support Aspirations precautions Prokinetic agents and laxatives as needed KIDNEYS & ELECTROLYTES: Strict monitoring of intake and output Daily weights Avoid nephrotoxic agents Monitor electrolytes and replace as needed Goal urine output of 30mL/hr or 0.5mL/kg/hr Medications to be dosed according to renal function. Avoid contrast if possible ENDOCRINE: Maintain blood glucose between 100-180 at all times. Insulin sliding scale for blood glucose management Hypoglycemia and hyperglycemia protocol in place INFECTIOUS DISEASE: Trend temperature, WBC and procalcitonin level Follow cultures, deescalate antibiotics as soon as possible. Panculture if new onset fever HEMATOLOGY & COAGULATION: Monitor H&H. Keep Hgb > 7 Transfuse 1 unit of PRBC for Hgb < 7 Transfuse 1 pack of platelets of platelets < 20, 000 Watch for any signs and symptoms of bleeding SKIN: Pressure ulcer prevention per facility protocol Specialty mattress as needed ORTHO/REHAB Continue PT/OT PRN: MEDICATIONS Tylenol 650 mg po every 4 hrs for fever zofran 4 mg IV every 6 hrs for n/v Hydralazine 5 mg IV every 4 hrs systolic pressure > 160 bowel regiment: lactulose 20 gm PO BID PRN constipation Supportive measures: Continue GI and DVT prophylaxis Disposition: Pending improvement in clinical condition All questions answered time spent: > 35 min KULDEEP CRAWFORD MD Jul 08, 2025 11:47
[2025-07-08 12:00] VITALS: BP 118/67; PULSE 80; RESP 16; TEMP 97.8
[2025-07-08 16:00] VITALS: BP 109/57; PULSE 84; RESP 16; TEMP 98
[2025-07-08] MEDS: PoTASSium chloRIDE 20MEQ ER 20 MEQ ERTAB PO ONE (17:55)
--- NOTE | 2025-07-08 18:04 | PN ---
[facility] CARDIOLOGY PROGRESS NOTE Date Patient Seen: Jul 08, 2025 Time of Visit: 18:02 Interval History: [No acute events overnight. Review of telemetry shows minimal rate control, her heart rate elevates to the 130s on minimal exertion, she has [id number] hours on the unit diltiazem dose Physical Examination: GENERAL: Morbidly obese, in no acute distress HEENT: Grossly within normal limits NECK: Supple without JVD. LUNGS: Clear breath sounds bilaterally. No wheezes, or rhonchi. HEART: Regular with occasional premature beats. Normal S1 and S2 without murmurs, gallop or rub. EXT: No edema NEURO: Grossly nonfocal Laboratory: [ ] Hematology Labs: Test 07/08/25 04:31 Range/Units White Blood Count 7.8 4.8-10.8 K/uL Red Blood Count 3.65 L 4.00-5.50 MIL/uL Hemoglobin 11.5 L 12.0-16.0 g/dL Hematocrit 35.8 L 36-48 % Mean Corpuscular Volume 98.1 79-99 fL Mean Corpuscular Hemoglobin 31.5 27.0-33.0 pg Mean Corpuscular Hemoglobin Concent 32.1 32.0-36.0 g/dL Red Cell Distribution Width 13.3 11.0-15.5 % Platelet Count 305 130-400 K/uL Mean Platelet Volume 9.0 7.5-10.5 fL Nucleated Red Blood Cells 0.0 0.0-0.19 % Chemistry Labs: Test 07/08/25 04:31 Range/Units Sodium Level 140 136-145 mmol/L Potassium Level 3.9 3.5-5.1 mmol/L Chloride Level 104 101-111 mmol/L Carbon Dioxide Level 28 21-32 mmol/L Blood Urea Nitrogen 41 H 7-18 mg/dL Creatinine 1.3 H 0.5-1.0 mg/dL Glomerular Filtration Rate Calc 44 >90 mL/min Random Glucose 112 H 70-105 mg/dL Total Calcium 9.3 8.5-10.1 mg/dL Magnesium Level 2.10 1.80-2.40 mg/dL Total Bilirubin 0.6 0.2-1.0 mg/dL Aspartate Amino Transf (AST/SGOT) 30 10-37 U/L Alanine Aminotransferase (ALT/SGPT) 54 12-78 U/L Alkaline Phosphatase 62 50-136 U/L Total Protein 6.3 6.0-8.3 g/dL Albumin 2.9 L 3.5-5.0 g/dL Diagnostics / Radiology: [Copy/Paste Echos/Imaging Report here] Impression and Plan: [-exertional dyspnea and dizziness -Paroxysmal atrial fibrillation with RVR -h/o right popliteal vein thrombus and extensive bilateral PE (R>L) in 08/2024, with CTA negative for PE on 07/03/2025 and venous Doppler negative for DVT on 07/04/2025 -Normal LV systolic function (LVEF: 55-60% by echo done 07/04/2025) -HTN -Morbid obesity ] #Paroxysmal atrial fibrillation Patient initially endorsing exertional dyspnea Positive history for right popliteal vein thrombus and extensive bilateral PE in August of 2024 CTA chest negative for PE (07/03/2025) with venous Dopplers negative for DVT (07/04/2025) 2D echocardiogram LVEF 55-60% with no wall motion or valvular abnormalities (07/04/2025) Current review of telemetry shows atrial fibrillation with a heart rate of 102 Her heart rate increases to the 130s on minimal exertion despite her increasing diltiazem for the past48 hours Keep on telemetry, monitor/replace electrolytes as needed ( Mg > 2 , K > 4 ) We will continue diltiazem 240 mg daily at this time We will continue Xarelto 20 mg daily for PPX We will consult EP to evaluate for possible EP study/ablation #Suspected orthostatic hypotension Patient is endorsing ongoing dizziness that exacerbates with positional changes We will evaluate orthostatics every12 hours If positive administer 500 mL of N/S x1 IV We will hold HCTZ and Aldactone at this time Thank you for this consult cardiology will continue to follow along Gamaliel layton MD ATTESTATION BY PHYSICIAN I have seen and examined the patient, reviewed the above documentation, participated in medical decision making, made necessary modifications, and agree with the treatment plan as documented by my mid-level provider above. MD ERIN Vargas JAMES R MD Jul 08, 2025 18:04
[2025-07-08 20:00] VITALS: BP 122/58; PULSE 87; RESP 18; TEMP 97.7; O2SAT 97
[2025-07-08] MEDS: PROPAFENONE HCL 150 MG TABLET PO SCH (20:17)
[2025-07-09] VITALS (7 sets, daily range): BP systolic 97–121; BP diastolic 54–76; PULSE 77–102; RESP 18–20; TEMP 97.6–98.1
[2025-07-09 04:20] LABS: NUCLEATED RED BLOOD CELLS 0.0 % (0.0-0.19); PLATELET COUNT (AUTO) 293.0 K/uL (130-400); RED BLOOD CELL COUNT(AUTO) 3.46 MIL/uL (4.00-5.50); RED CELL DISTRIBUTION WIDTH 13.3 % (11.0-15.5); WHITE BLOOD COUNT (AUTO) 7.3 K/uL (4.8-10.8)
[2025-07-09 04:38] LABS: ASPARTATE AMINOTRANSFERASE 24.0 U/L (10-37); CREATININE 1.0 mg/dL (0.5-1.0); GLOMERULAR FILTR. RATE CALC 61.0 mL/min (>90); GLUCOSE,RANDOM 107.0 mg/dL (70-105); SODIUM SERUM 140.0 mmol/L (136-145); TOTAL PROTEIN, SERUM 6.1 g/dL (6.0-8.3); UREA NITROGEN, BLOOD 38.0 mg/dL (7-18)
--- NOTE | 2025-07-09 10:15 | NUR ---
Report received from Charge NurseBoogie. Assumed care of patient.
--- NOTE | 2025-07-09 12:57 | NUR ---
BLOOD GLUCOSE LEVEL NOT CHECKED Patient has signed refusal form for acuchecks. States she is not diabetic. Of note, she has also signed refusal form for bed alarm, and SCDs. Patient ambulates without assist. Gets up out of bed. Bed remains in low position. Rounding q2h by staff and prn. Staff ensure with each round/room visit that personal items are available, call light is within reach, patient toilet/hygeine needs have been met, pain is assessed.
--- NOTE | 2025-07-09 13:36 | PN ---
[facility] PROGRESS NOTE Date of Service: Jul 09, 2025 Time of Service: 13:34 SUBJECTIVE: Patient is a 69-year-old female with past medical history of hypertension, osteoporosis of both knee and atrial fibrillation for which she is on Xarelto. The patient came to the ER with complain of shortness of breaths since 1 week and has progressed since then such that the patient has shortness of breath even when she goes to the washroom. The patient complains of no chest pain, dizziness, vertigo, and syncope. The patient stated that she started taking inxo-xwa-smrlarm drug called ArtiKing for the past 2 months after her friend recommended it for her knee pain and it got better. On Monday the patient went to her PCP for her regular appointment in which she discussed the xxgs-jpl-hvfkaln medication with the doctor and the doctor recommended her to follow up with the orthopedic due to potential side effects of the drug and advised to stop the medication, which the patient did. On the patient was treated her orthopedic and discussed the medication. The orthopedic told her to stop the medication as it contained steroids and advised the patient to go to the ER for shortness of breaths and tapering off the medication. The patient has a history of sleep apnea for which she used to use CPAP but according to the patient she has not used that in years. She has gained 40 lb in 1 month. On admission, blood pressure was 114/69, pulse rate 104, respiratory rate 22 and oxygen saturation 96% on room air. EKG was done that showed atrial fibrillation with rapid ventricular response. Her BNP was 70, D-dimer 219, troponin 8, and HGB A1c 5.3. Chest x-ray was nonsignificant for any cardiopulmonary pathology. Chest x-ray showed no pulmonary embolism but but suggested pulmonary artery hypertension for which echo was recommended. 07/04/2025: The patient is alert, awake, and oriented. She is complaining of shortness of breaths while going to the restroom but no chest pain. Today the patient is rhythm was sinus with pulse rate of 78. Cardiology and pulmonology were consulted for shortness of breaths and atrial fibrillation. The patient also complained of bilateral lower extremity edema for which she was switched from Lasix to Bumex. Due to her use of xkuz-ztk-sasfwln medication that contains dexamethasone, cortisol a.m. levels were ordered. Due to patient's shortness of breath, ABGs were ordered but the patient refused ABGs. 07/05/2025: Patient is awake, alert, and oriented. The patient is not complaining of shortness of breaths and she says it is better than yesterday. Today the patient is rhythm was AFib 108. Pulmonology saw the patient yesterday and commented that the shortness of breath was cardiac in origin. Cardiology s topped metoprolol and increased the dose of diltiazem. The patient had a 6 minute walk today and was able to walk only 3 minutes with no shortness a breath and stopped after 3 minutes due to pain in her knees. Orthostatic hypotension test was done that showed a significant drop in blood pressure therefore Cardiology stopped patient's Bumex. 07/06/2025: Patient is alert, awake and oriented. She denies shortness of breath and feels better than yesterday. Nurse informed me that she has AFib 120s when she is active and in 90s when she is resting. Her heart rate is 79 when I saw her. Cardiology consulted her and increase the dose of diltiazem to 240 mg once a day. 07/07 patient is seen and examined at bedside, case discussed with the RN, no acute events overnight, Cardiology input noted and appreciated, sedated to has been increased to 240 mg daily, EP consultation requested, we will follow input and recommendations. 07/08 patient is seen and examined at bedside, case discussed with the RN, no acute events overnight, remains admitted to medical floor, BP 100/49, heart rate of 125 earlier this morning, she is saturating normal on room air, denies dizziness, no palpitations, no chest pain, no shortness a breath, no nausea, no vomiting. Patient evaluated by EP, atrial tachycardia, supraventricular tachycardia most likely atrial tachycardia, there is no evidence of atrial fibrillation. 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 We will continue to follow recommendation. 07/09 patient remains admitted to the medical floor, case discussed with the RN, at the time of my visit alert oriented x3, heart rate was 102 earlier this morning. Patient evaluated by semi conductor assembler yesterday and started on propafenone 150 mg q.8 hours. We will continue to monitor cardiology input and recommendation. Hemoglobin 11.0, hematocrit 34.4. Follow a.m. labs. Discussed with the patient. REVIEW OF SYSTEMS CONSTITUTIONAL: Denies fevers, chills, or night sweats. No unintentional weight loss reported. Osteoarthritis of both knees NEUROLOGICAL: Denies headache, amaurosis fugax, motor weakness, sensory deficit, vertigo/spinning sensation, gait abnormalities, or tremors. ENT: No hearing loss, otalgia, otorrhea, rhinitis, rhinorrhea, hoarseness, or sore throat. CARDIOVASCULAR: Denies any exertional angina, dyspnea on exertion, orthopnea, paroxysmal nocturnal dyspnea, palpitations, life-threatening arrhythmias, claudication. PULMONARY: Shortness of breaths improved SLEEP: History of sleep apnea for which he used CPAP many years ago GASTROINTESTINAL: Denies any type of dysphagia to either liquids or solids. Denies nausea, vomiting, pyrosis, early satiety, abdominal pain, diarrhea, co nstipation, or changes in stool consistency or caliber. Denies coffee-ground emesis, hematemesis, hematochezia, or melanotic stools. GENITOURINARY: Denies frequency, urgency, nocturia, hematuria or incontinence (Storage/Irritative symptoms.) Low urinary stream, straining to void, urinary intermittency or hesitancy, splitting of the voiding stream, terminal dribbling. ENDOCRINOLOGIC: Denies polyuria, polydipsia, polyphagia or heat/cold intolerances. PHYSICAL EXAM GENERAL APPEARANCE: The patient is awake, alert, and oriented. Obese NEUROLOGICAL: Cranial nerves II-XII grossly intact. Motor is 5/5 in bilateral upper and lower extremities proximal to distal. No sensory deficits. HEENT: Face is symmetric. Pupils are equal and reactive. Extraocular movements are intact. NECK: Supple. No JVD. No thyromegaly. No submental, submandibular, pre- /postauricular, occipital or supraclavicular lymphadenopathy. CHEST: Normal chest expansion. No Telemetry. LUNGS: Absence of any rales, rhonchi or any wheezing. CARDIOVASCULAR: Regular. S1 and S2 normal. No appreciable rubs, murmurs or gallops. ABDOMEN: Soft, nontender, and nondistended. There is no rebound, voluntary guarding, or rigidity. : Deferred. No Wilson. EXTREMITIES: Improving Bilateral Lower extremity pitting edema SKIN: No skin breakdown. Vital Signs (last 8hr) Date Time Temp Pulse Resp B/P (MAP) Pulse Ox O2 Delivery O2 Flow Rate FiO2 07/09/25 12:00 97.9 83 20 111/56 93 Room Air 21 07/09/25 08:03 102 116/76 07/09/25 08:01 102 105/65 07/09/25 08:00 97.5 83 18 106/63 97 Room Air LABS: Laboratory: Test 07/09/25 03:58 Range/Units White Blood Count 7.3 4.8-10.8 K/uL Red Blood Count 3.46 L 4.00-5.50 MIL/uL Hemoglobin 11.0 L 12.0-16.0 g/dL Hematocrit 34.4 L 36-48 % Mean Corpuscular Volume 99.4 H 79-99 fL Mean Corpuscular Hemoglobin 31.8 27.0-33.0 pg Mean Corpuscular Hemoglobin Concent 32.0 32.0-36.0 g/dL Red Cell Distribution Width 13.3 11.0-15.5 % Platelet Count 293 130-400 K/uL Mean Platelet Volume 9.0 7.5-10.5 fL Nucleated Red Blood Cells 0.0 0.0-0.19 % Sodium Level 140 136-145 mmol/L Potassium Level 4.1 3.5-5.1 mmol/L Chloride Level 104 101-111 mmol/L Carbon Dioxide Level 31 21-32 mmol/L Blood Urea Nitrogen 38 H 7-18 mg/dL Creatinine 1.0 0.5-1.0 mg/dL Glomerular Filtration Rate Calc 61 >90 mL/min Random Glucose 107 H 70-105 mg/dL Total Calcium 9.3 8.5-10.1 mg/dL Magnesium Level 2.10 1.80-2.40 mg/dL Total Bilirubin 0.5 0.2-1.0 mg/dL Aspartate Amino Transf (AST/SGOT) 24 10-37 U/L Alanine Aminotransferase (ALT/SGPT) 50 12-78 U/L Alkaline Phosphatase 62 50-136 U/L Total Protein 6.1 6.0-8.3 g/dL Albumin 2.8 L 3.5-5.0 g/dL Current Medications Medications (Trade) Dose Ordered Sig/Cory Route PRN Reason Start Time Stop Time Status Last Admin Dose Admin Acetaminophen (TYLenol 325MG TAB) 650 mg Q6H PRN PO TEMPERATURE GREATER THAN 101.5 07/03/25 18:30 08/02/25 18:29 Apixaban (EliquIS) 5 mg BID PO 07/03/25 21:00 07/04/25 09:15 DC 07/04/25 08:49 5 MG Bumetanide (Bumex 1mg Tab) 1 mg BID PO 07/04/25 21:00 07/05/25 13:00 DC 07/05/25 09:45 1 MG Diltiazem HCl (CARDIzem 120MG CD) 120 mg DAILY PO 07/05/25 09:00 07/04/25 15:24 DC Diltiazem HCl (CARDIzem 120MG CD) 240 mg DAILY PO 07/07/25 09:00 08/06/25 08:59 07/09/25 08:57 240 MG Diltiazem HCl (CARDIzem 180MG CD) 180 mg DAILY PO 07/05/25 09:00 07/06/25 11:04 DC 07/06/25 08:27 180 MG Famotidine (Pepcid 20mg Tab) 20 mg DAILY PO 07/04/25 09:00 08/03/25 08:59 07/09/25 08:58 20 MG Furosemide (LASix 20MG TAB) 20 mg BID@09,17 PO 07/04/25 09:00 07/04/25 11:00 DC 07/04/25 08:51 20 MG Home Med (Home Medication) (Estradiol (Estrace) 1 GM) HS VG 07/04/25 21:00 08/03/25 20:59 Hydralazine HCl (APRESOLine 20MG INJ) 10 mg Q6H PRN IV For:SBP above 160;DBP above 90 07/03/25 18:30 08/02/25 18:29 Hydrochlorothiazide (hydroCHLOROthiazide 25MG) 12.5 mg DAILY PO 07/05/25 09:00 07/08/25 10:03 DC 07/07/25 08:56 12.5 MG Insulin Human Regular (humuLIN R 100 UNIT/ML 3ML) INSULIN SLIDING SCAL... ACHS SQ 07/03/25 21:00 08/02/25 20:59 Lactulose (Constulose 20gm/ 30ml Udcup) 20 gm BID PRN PO CONSTIPATION 07/03/25 18:30 08/02/25 18:29 Latanoprost (Xalatan) 1 DROP HS OP 07/04/25 21:00 08/03/25 20:59 07/08/25 20:18 1 DROP Lisinopril (Prinivil 20mg) 20 mg DAILY PO 07/05/25 09:00 08/04/25 08:59 07/09/25 09:02 20 MG Loratadine (LORATAdine 10 mg) 10 mg DAILY PO 07/08/25 10:30 08/07/25 10:29 07/09/25 08:58 10 MG Magnesium Sulfate 50 ml @ 0 mls/hr PROTOCOL PRN IV MAGNESIUM PROTOCOL 07/04/25 15:00 08/03/25 14:59 07/06/25 06:45 15 MLS/HR Meloxicam (Mobic 7.5mg) 15 mg HS PO 07/04/25 21:00 08/03/25 20:59 07/08/25 20:17 15 MG Metoprolol Tartrate (loprESSOR) 5 mg Q5MIN PRN IV AFIB RVR HEART RATE > 120 BPM 07/03/25 18:30 07/05/25 23:01 DC 07/05/25 23:01 5 MG Metoprolol Tartrate (loprESSOR) 12.5 mg BID PO 07/03/25 21:00 07/04/25 13:36 DC 07/04/25 08:49 12.5 MG Montelukast Sodium (SinguLAIR) 10 mg HS PO 07/04/25 21:00 08/03/25 20:59 07/08/25 20:17 10 MG Morphine Sulfate (morPHINE 2MG SYG) 2 mg Q4H PRN IVP SEVERE PAIN (7-10) 07/03/25 18:30 07/08/25 21:29 DC Ondansetron HCl (zoFRAN 4MG INJ) 4 mg Q6H PRN IV NAUSEA/VOMITING 07/03/25 18:30 08/02/25 18:29 Pharmacy Profile Note (Pharmacy Communication) 1 each ONCE MISC 07/03/25 18:30 07/03/25 18:24 DC Potassium Chloride 100 ml @ 100 mls/hr AD PRN IV POTASSIUM PROTOCOL 07/04/25 15:00 07/08/25 15:12 DC Potassium Chloride (K-Dur/Klor-Con 20meq) 20 meq AD PRN PO POTASSIUM PROTOCOL 07/04/25 15:00 08/03/25 14:59 07/07/25 06:11 20 MEQ Potassium Chloride (KCl 10% Elixir 20meq/15ml) 20 meq AD PRN PO POTASSIUM PROTOCOL 07/04/25 15:00 08/03/25 14:59 Propafenone HCl (Rythmol) 150 mg Q8H PO 07/08/25 20:00 08/07/25 19:59 07/09/25 12:54 150 MG Propafenone HCl (Rythmol) 150 mg Q8H STAT PO 07/08/25 10:30 07/08/25 10:37 DC 07/08/25 11:23 150 MG Rivaroxaban (Xarelto) 20 mg DAILY PO 07/04/25 21:00 08/03/25 20:59 07/09/25 08:58 20 MG Spironolactone (Aldactone 25mg) 25 mg DAILY PO 07/05/25 09:00 07/08/25 10:03 DC 07/07/25 08:59 25 MG DIAGNOSTICS / RADIOLOGY: [ ] ASSESSMENT: AFib with a RVR, POA Shortness of Breath possibly due to poly pharmacy use, POA Anemia Sleep Apnea Hypertension Osteoarthritis Severe obesity, BMI 47.1 PLAN: NEURO: Minimize central acting medications as possible. Fall Precautions. Well lighted room through the day and minimize interruptions through the night to prevent acute delirium. PULMONARY: Supplemental 02 as needed BiPAP as necessary, for respiratory distress Titrate Fio2 to keep Spo2 > or = 90% DuoNebs and CPT as needed IS hourly while awake for pulmonary hygiene prn Out of bed to chair as tolerated Maintain aspiration precautions at all times CARDIOVASCULAR: Follow hemodynamics. Vital signs per facility protocol GI & NUTRITION: Continue nutritional support Aspirations precautions Prokinetic agents and laxatives as needed KIDNEYS & ELECTROLYTES: Strict monitoring of intake and output Daily weights Avoid nephrotoxic agents Monitor electrolytes and replace as needed Goal urine output of 30mL/hr or 0.5mL/kg/hr Medications to be dosed according to renal function. Avoid contrast if possible ENDOCRINE: Maintain blood glucose between 100-180 at all times. Insulin sliding scale for blood glucose management Hypoglycemia and hyperglycemia protocol in place INFECTIOUS DISEASE: Trend temperature, WBC and procalcitonin level Follow cultures, deescalate antibiotics as soon as possible. Panculture if new onset fever HEMATOLOGY & COAGULATION: Monitor H&H. Keep Hgb > 7 Transfuse 1 unit of PRBC for Hgb < 7 Transfuse 1 pack of platelets of platelets < 20, 000 Watch for any signs and symptoms of bleeding SKIN: Pressure ulcer prevention per facility protocol Specialty mattress as needed ORTHO/REHAB Continue PT/OT PRN: MEDICATIONS Tylenol 650 mg po every 4 hrs for fever zofran 4 mg IV every 6 hrs for n/v Hydralazine 5 mg IV every 4 hrs systolic pressure > 160 bowel regiment: lactulose 20 gm PO BID PRN constipation Supportive measures: Continue GI and DVT prophylaxis Disposition: Pending improvement in clinical condition All questions answered time spent: > 35 min KULDEEP CRAWFORD MD Jul 09, 2025 13:36
[2025-07-09] MEDS ORDERED: DILT120C89 PO (15:53)
[2025-07-09] MEDS ORDERED: PROP325C17 PO (15:53)
--- NOTE | 2025-07-09 15:57 | DS ---
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 The symptoms began spontaneously and over the ensuing timeframe have been constant and have progressively worsened. Previously the patient could walk half a block before she would develop symptoms, but prior to admission she would develop symptoms a fter walking 5 feet. The symptoms were exacerbated by fast paced walking or prolonged conversations and would slowly resolve with rest. Associated symptoms include weight gain (40 lbs in 1 month) and bilateral lower extremity swelling. Pertinent negatives include headache, dizziness, syncope, chest pain, chest pressure, palpitations, PND, orthopnea, abdominal pain, nausea, vomiting, diaphoresis, fever, or chills. The patient's progression of symptoms prompted her to seek a higher level of care. Cardiology was consulted for treatment recommendations. HOSPITAL COURSE 07/04/2025: The patient is alert, awake, and oriented. She is complaining of shortness of breaths while going to the restroom but no chest pain. Today the patient is rhythm was sinus with pulse rate of 78. Cardiology and pulmonology were consulted for shortness of breaths and atrial fibrillation. The patient also complained of bilateral lower extremity edema for which she was switched from Lasix to Bumex. Due to her use of ytrw-mdv-jotardp medication that contains dexamethasone, cortisol a.m. levels were ordered. Due to patient's shortness of breath, ABGs were ordered but the patient refused ABGs. 07/05/2025: Patient is awake, alert, and oriented. The patient is not complaining of shortness of breaths and she says it is better than yesterday. Today the patient is rhythm was AFib 108. Pulmonology saw the patient yesterday and commented that the shortness of breath was cardiac in origin. Cardiology stopped metoprolol and increased the dose of diltiazem. The patient had a 6 minute walk today and was able to walk only 3 minutes with no shortness a breath and stopped after 3 minutes due to pain in her knees. Orthostatic hypotension test was done that showed a significant drop in blood pressure therefore Cardiology stopped patient's Bumex. 07/06/2025: Patient is alert, awake and oriented. She denies shortness of breath and feels better than yesterday. Nurse informed me that she has AFib 120s when she is active and in 90s when she is resting. Her heart rate is 79 when I saw her. Cardiology consulted her and increase the dose of diltiazem to 240 mg once a day. 07/07 patient is seen and examined at bedside, case discussed with the RN, no acute events overnight, Cardiology input noted and appreciated, sedated to has been increased to 240 mg daily, EP consultation requested, we will follow input and recommendations. 07/08 patient is seen and examined at bedside, case discussed with the RN, no acute events overnight, remains admitted to medical floor, BP 100/49, heart rate of 125 earlier this morning, she is saturating normal on room air, denies dizziness, no palpitations, no chest pain, no shortness a breath, no nausea, no vomiting. Patient evaluated by EP, atrial tachycardia, supraventricular tachycardia most likely atrial tachycardia, there is no evidence of atrial fibrillation. 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 We will continue to follow recomm endation. DISCUSSED CASE WITH THE DUAL HOSE CEMENTER, OKAY FOR THE PATIENT TO BE DISCHARGED ON PROPAFENONE ER 325 MG P.O. B.I.D. AND FOLLOW UP AN OUTPATIENT WITH DR. ORTIZ AT [facility]. Shallot Packer(s): CARDIOLOGY AND DUAL HOSE CEMENTER. Assessment/Plan: FINAL DIAGNOSIS Atrial tachycardia, POA AFib with a RVR, ruled out, POA Shortness of Breath possibly due to poly pharmacy use, POA Anemia Obstructive Sleep Apnea Hypertension Osteoarthritis Severe obesity, BMI 47.1 Discharge Instructions: Patient to follow up with her vending machine servicer Dr. Ortiz as an outpatient at [facility], advised to get sleep study done as an outpatient, return to the hospital if condition changes. Patient agreed with plan and understood the information provided. Home Medications: Active Scripts Lisinopril (Lisinopril) 20 Mg Tablet, 1 TAB PO DAILY for 30 Days, #30 TAB 0 Refills Prov:TEDDY MARCUS MD 08/22/24 Spironolactone (Spironolactone) 25 Mg Tablet, 25 MG PO DAILY, #30 TAB 3 Refills Prov:RICHELLE ORTIZ MD 08/22/24 Apixaban (Eliquis) 5 Mg Tablet, 5 MG PO BID, #180 TAB 3 Refills Start 08/28 after completing the 10 mg bid doses Prov:RICHELLE ORTIZ MD 08/22/24 Apixaban (Eliquis) 5 Mg Tablet, 10 MG PO BID, #10 TAB 0 Refills Prov:RICHELLE ORTIZ MD 08/22/24 Reported Medications Estradiol (Estrace) 0.01 % Cream.appl, 1 GM VG HS for 30 Days, #42.5 GM 0 Refills 07/03/25 Hydrochlorothiazide (Hydrochlorothiazide) 12.5 Mg Tablet, 1 TAB PO DAILY for 30 Days, #30 TAB 0 Refills 07/03/25 Rivaroxaban (Xarelto) 20 Mg Tablet, 1 TAB PO DAILY for 30 Days, #30 TAB 0 Refills with food 07/03/25 Montelukast Sodium (Montelukast Sodium) 10 Mg Tablet, 10 MG PO HS, TAB 08/20/24 Meloxicam (Meloxicam) 15 Mg Tablet, 15 MG PO HS, TAB 08/20/24 Diltiazem HCl (Diltiazem HCl) 120 Mg Tablet, 120 MG PO DAILY, TAB 08/20/24 Latanoprost (Latanoprost) 0.005 % Drops, 2.5 ML OP HS, DROP 06/30/24 Time spent arranging discharge: 31-60 minutes KULDEEP CRAWFORD MD Jul 09, 2025 15:57
--- NOTE | 2025-07-09 17:29 | NUR ---
DISCHARGE NOTE IV and ID bands removed. Discharge instructions, medications, and follow up appointments reviewed with patient and family. Personal belongings packed and taken with . Patient taken down to personal vehicle via wheelchair.
== END 2025-07-09 17:45 | disposition home or self-care (01) | DRG 309 ==
LOC: EDH 16:13 → EDHIP 18:12 → 4BH 22:15
PROVIDERS: ADMIT Internal Medicine; ATTEND Internal Medicine
DX: I47.19 Other supraventricular tachycardia (principal); Z68.42 Body mass index [BMI] 45.0-49.9, adult; I95.1 Orthostatic hypotension; E66.01 Morbid (severe) obesity due to excess calories; E78.5 Hyperlipidemia, unspecified; F02.80 Dementia in other diseases classified elsewhere, unspecified severity, without behavioral disturbance, psychotic disturbance, mood disturbance, and anxiety; G30.9 Alzheimer's disease, unspecified; G47.33 Obstructive sleep apnea (adult) (pediatric); I10 Essential (primary) hypertension; I07.1 Rheumatic tricuspid insufficiency; D64.9 Anemia, unspecified; J44.9 Chronic obstructive pulmonary disease, unspecified; Z51.5 Encounter for palliative care; Z79.01 Long term (current) use of anticoagulants; Z86.711 Personal history of pulmonary embolism; Z86.718 Personal history of other venous thrombosis and embolism; Z86.73 Personal history of transient ischemic attack (TIA), and cerebral infarction without residual deficits; Z79.899 Other long term (current) drug therapy
CPT/HCPCS: 36415; 71045; 71270; 76376; 80048; 80053; 80076; 81001; 82533; 82570; 82728; 83036; 83540; 83550; 83735; 83880; 84100; 84156; 84443; 84484; 85025; 85027; 85378; 85610; 85730; 87426; 87804; 93005; 93306; 93356; 93970; 94760; 99291; G0378; J1756; J3475; J3490; J7050; Q9967